=== PATIENT | female | born 1950 | race Caucasian/White ===

== ENCOUNTER → 2016-06-09 | Outpatient (CLI) | payer OTHER ==
[~2016-06-09] MED LIST: ATOR-24 PO; LEVO125T7 PO; LISI-725 PO; LRT5 PO; MULT-190 PO; NAPR-201 PO; UNABLE
[2016-06-09 12:40] LABS: ALT/SGPT 54 U/L (12-78); BLOOD UREA NITROGEN 20 mg/dl (7-18); BUN/CREATININE RATIO 18.5 (10-20); CALCIUM 9.8 mg/dl (8.5-10.1); CARBON DIOXIDE 22 mmol/L (21-32); CHLORIDE 106 mmol/L (98-107); CHOLESTEROL 162 mg/dl (0-200); GLUCOSE 207 mg/dl (70-99); POTASSIUM 4.5 mmol/L (3.5-5.1); SODIUM 141 mmol/L (136-145)
[2016-06-09 12:42] LABS: ESTIMATED AVERAGE GLUCOSE 189 mg/dl; HA1C FLAG Normal (Normal)
[2016-06-09 12:51] LABS: ALB/GLOB RATIO 1.4 (0.9-2); ALKALINE PHOSPHATASE 75 U/L (45-117); AST/SGOT 37 U/L (15-37); CHOLESTEROL/HDL RATIO 3.4; HDL CHOLESTEROL 48 mg/dl; LDL CHOLESTEROL CALCULATED 78 mg/dl; TRIGLYCERIDES 178 mg/dl (0-150); VERY LOW DENSITY LIPOPROT CALC 36 mg/dl
== END | disposition home or self-care (01) ==
LOC: C.LABBFT 11:10
PROVIDERS: ATTEND Nurse Practitioner
DX: E11.65 Type 2 diabetes mellitus with hyperglycemia (principal); E03.9 Hypothyroidism, unspecified

== ENCOUNTER → 2016-06-10 | Outpatient (CLI) | payer OTHER ==
--- NOTE | 2016-06-10 16:04 | MAMMOGRAPHY REPORT ---
BILATERAL DIGITAL SCREENING MAMMOGRAM WITH CAD: 06/10/2016 CLINICAL HISTORY: Routine screening. Patient has no complaints. TECHNIQUE: Bilateral CC and MLO views were obtained. Current study was also evaluated with a Compu ter Aided Detection (CAD) system. COMPARISON: Comparison is made to exams dated: 04/19/2014 mammogram, 04/20/2015 mammogram, 3 mammogram, 04/05/2012 mammogram, 04/03/2011 mammogram, and 04/02/2010 mammogram - [facility]. BREAST COMPOSITION: There are scattered areas of fibroglandular density in both breasts. FINDINGS: A 5 mm focal asymmetry in the approximate 3:00 right breast is unchanged in size dating ba ck to at least 07/30/2007, therefore likely benign. No suspicious mass, architectural distortion or cluster of microcalcifications is seen. IMPRESSION: ACR BI-RADS CATEGORY 1: NEGATIVE There is no mammographic evidence of malignancy. A 1 year screening mammogram is recommended. The p atient will receive written notification of the results. Approximately 10% of breast cancers are not detected with mammography. A negative mammographic repor t should not delay biopsy if a clinically suggestive mass is present. Henny Taveras M.D. ay/:06/10/2016 15:50:44 Relaster: Nasima CHAVEZ)(Sudha), [facility] letter sent: Normal 1/2 BI-RADS Code: ACR BI-RADS Category 1: Negative
== END | disposition home or self-care (01) ==
LOC: C.MAMM 13:55
PROVIDERS: ATTEND Allergy & Immunology Allergy
DX: Z12.31 Encounter for screening mammogram for malignant neoplasm of breast (principal)

== ENCOUNTER → 2016-10-10 | Outpatient (CLI) | payer OTHER ==
[2016-10-10 12:09] LABS: ESTIMATED AVERAGE GLUCOSE 214 mg/dl; HA1C FLAG Normal (Normal)
[2016-10-10 12:25] LABS: ALB/GLOB RATIO 1.4 (0.9-2); ALT/SGPT 49 U/L (12-78); AST/SGOT 39 U/L (15-37); BLOOD UREA NITROGEN 24 mg/dl (7-18); BUN/CREATININE RATIO 19.7 (10-20); CALCIUM 9.1 mg/dl (8.5-10.1); CARBON DIOXIDE 24 mmol/L (21-32); CHLORIDE 107 mmol/L (98-107); CHOLESTEROL 151 mg/dl (0-200); GLUCOSE 179 mg/dl (70-99); POTASSIUM 4.5 mmol/L (3.5-5.1); SODIUM 140 mmol/L (136-145)
[2016-10-10 12:30] LABS: ALKALINE PHOSPHATASE 68 U/L (45-117); CHOLESTEROL/HDL RATIO 3.4; HDL CHOLESTEROL 44 mg/dl; LDL CHOLESTEROL CALCULATED 51 mg/dl; TRIGLYCERIDES 279 mg/dl (0-150); VERY LOW DENSITY LIPOPROT CALC 56 mg/dl
[2016-10-10 18:01] LABS: RATIO 18.6 mcg/mg (0-30.0)
== END | disposition home or self-care (01) ==
LOC: C.LABBFT 10:40
PROVIDERS: ATTEND Nurse Practitioner
DX: E11.65 Type 2 diabetes mellitus with hyperglycemia (principal)

== ENCOUNTER → 2017-02-16 | Outpatient (CLI) | payer OTHER ==
[2017-02-16 18:01] LABS: ALT/SGPT 47 U/L (12-78); AST/SGOT 44 U/L (15-37); BLOOD UREA NITROGEN 21 mg/dl (7-18); BUN/CREATININE RATIO 17.8 (10-20); CALCIUM 9.4 mg/dl (8.5-10.1); CARBON DIOXIDE 23 mmol/L (21-32); CHLORIDE 107 mmol/L (98-107); CREATININE 1.18 mg/dl (0.60-1.20); GLUCOSE 138 mg/dl (70-99); POTASSIUM 4.1 mmol/L (3.5-5.1); SODIUM 140 mmol/L (136-145)
[2017-02-16 18:10] LABS: ALB/GLOB RATIO 1.2 (0.9-2); ALKALINE PHOSPHATASE 66 U/L (45-117); CHOLESTEROL 136 mg/dl (0-200); CHOLESTEROL/HDL RATIO 3.2; HDL CHOLESTEROL 42 mg/dl; LDL CHOLESTEROL CALCULATED 54 mg/dl; TRIGLYCERIDES 202 mg/dl (0-150); VERY LOW DENSITY LIPOPROT CALC 40 mg/dl
[2017-02-16 18:26] LABS: RATIO 22.2 mcg/mg (0-30.0)
[2017-02-17 07:07] LABS: ESTIMATED AVERAGE GLUCOSE 192 mg/dl; HA1C FLAG Normal (Normal)
== END | disposition home or self-care (01) ==
LOC: C.LABBFT 11:13
PROVIDERS: ATTEND Nurse Practitioner
DX: E11.65 Type 2 diabetes mellitus with hyperglycemia (principal); E03.9 Hypothyroidism, unspecified; I10 Essential (primary) hypertension; E55.9 Vitamin D deficiency, unspecified; E78.00 Pure hypercholesterolemia, unspecified

== ENCOUNTER → 2017-06-16 | Outpatient (CLI) | payer OTHER ==
--- NOTE | 2017-06-17 15:22 | MAMMOGRAPHY REPORT ---
BILATERAL DIGITAL SCREENING MAMMOGRAM TOMOSYNTHESIS WITH CAD: 06/16/2017 CLINICAL HISTORY: Routine screening. Patient has no complaints. TECHNIQUE: Breast tomosynthesis in addition to standard 2D mammography was performed. Current study was also evaluated with a Computer Aided Detection (CAD) system. COMPARISON: Comparison is made to exams dated: 06/10/2016 mammogram, 04/20/2015 mammogram, 04/19/2014 mammogram, 04/14/2013 mammogram, 04/06/2013 mammogram, and 04/05/2012 mammogram - [facility]. BREAST COMPOSITION: There are scattered areas of fibroglandular density in both breasts. FINDINGS: There is a stable subcentimeter focal asymmetry in the medial, approximately 3:00 right donna ast. No new suspicious mass, architectural distortion or cluster of microcalcifications is seen. IMPRESSION: ACR BI-RADS CATEGORY 1: NEGATIVE There is no mammographic evidence of malignancy. A 1 year screening mammogram is recommended. The pa tient will receive written notification of the results. Approximately 10% of breast cancers are not detected with mammography. A negative mammographic report should not delay biopsy if a clinically suggestive mass is present. Henny Taveras M.D. ay/:06/16/2017 15:54:03 Staff Forester: Noemi Rizvi, [facility] letter sent: Normal 1/2 BI-RADS Code: ACR BI-RADS Category 1: Negative
== END | disposition home or self-care (01) ==
LOC: C.MAMM 11:12
PROVIDERS: ATTEND Nurse Practitioner
DX: Z12.31 Encounter for screening mammogram for malignant neoplasm of breast (principal)

== ENCOUNTER → 2017-06-24 | Outpatient (CLI) | payer OTHER ==
[2017-06-24 13:03] LABS: ALBUMIN 4.1 gm/dl (3.4-5.0); BLOOD UREA NITROGEN 20 mg/dl (7-18); CALCIUM 10.1 mg/dl (8.5-10.1); CARBON DIOXIDE 27 mmol/L (21-32); CREATININE 1.23 mg/dl (0.60-1.20); GLUCOSE 224 mg/dl (70-99); POTASSIUM 4.4 mmol/L (3.5-5.1); SODIUM 136 mmol/L (136-145)
[2017-06-24 13:04] LABS: PHOSPHORUS 2.7 mg/dl (2.5-4.9)
== END | disposition home or self-care (01) ==
LOC: C.LABBFT 10:18
PROVIDERS: ATTEND Nurse Practitioner
DX: E11.65 Type 2 diabetes mellitus with hyperglycemia (principal); R92.8 Other abnormal and inconclusive findings on diagnostic imaging of breast

== ENCOUNTER → 2017-08-07 | Outpatient (CLI) | payer OTHER ==
[2017-08-07 17:47] LABS: BLOOD UREA NITROGEN 21 mg/dl (7-18); CALCIUM 9.8 mg/dl (8.5-10.1); CARBON DIOXIDE 25 mmol/L (21-32); CREATININE 1.14 mg/dl (0.60-1.20); POTASSIUM 4.1 mmol/L (3.5-5.1); SODIUM 132 mmol/L (136-145)
[2017-08-07 19:29] LABS: GLUCOSE 366 mg/dl (70-99)
--- NOTE | 2017-08-07 20:17 | Pathology Note ---
Pathology Note Date of Service Aug 07, 2017. Pathology Notes I was called by the laboratory at 1958 hours with a CV glucose of 366. The laboratory was unable to reach the patient's physician after calling three times. I called the patient and she stated she was feeling fine and had not taken her metformin yesterday.
== END | disposition home or self-care (01) ==
LOC: C.LABBFT 12:12
PROVIDERS: ATTEND Nurse Practitioner
DX: E11.65 Type 2 diabetes mellitus with hyperglycemia (principal)

== ENCOUNTER 2019-10-27 18:07 | Inpatient (IN) ==
[2019-10-27] MEDS ORDERED: SODIUM CHLORIDE 0.9% 500 ML IV SCH (18:30)
--- NOTE | 2019-10-27 18:31 | Emergency Department Note ---
Impression & Plan Sinus tachycardia, Hypomagnesemia, Abnormal ECG ED Provider Note NAME: JEREMIAH DEAN AGE: 69 SEX: F : 1950 ARRIVES VIA: Walk-In INFORMANT: Patient, ED PROVIDER(S): Brian Blandon DO CHIEF COMPLAINT: Palpitations HPI: The patient is a 69-year-old female who presented to the emergency department for an evaluation of abnormal EKG. The patient went to see her primary care physician today for a routine visit. She was sent to the emergency department for an abnormal EKG. The patient was found to have tachycardia and when she had an EKG done it was read as possible "silent heart attack". The patient was sent to the emergency department for further evaluation. She denies having any chest pain. She denies having any difficulty breathing. She does state that sometimes she gets exertional dyspnea. She does complain of lower extremity swelling which is not new for her. She denies having any nausea or vomiting or recent illnesses. She has no fever or cough. She used to be a smoker. She currently does take medications for thyroid. She also has a history of sciatica and has had injections with orthopedics in the past. She has had no changes to her medications. ROS: See above HPI for pertinent positives & negatives. A total of 10 systems reviewed and were otherwise negative. PAST MEDICAL HISTORY: See Below PAST SURGICAL HISTORY: See Below FAMILY HISTORY: See Below SOCIAL HISTORY: See Below HOME MEDICATIONS: See Below ALLERGIES: See Below VITALS: See Below PHYSICAL EXAMINATION: GENERAL: Patient is awake alert in no acute distress patient is resting comfortably and showing no signs of anxiety EYES: The conjunctivae are clear. The pupils are round and reactive. EARS, NOSE, MOUTH AND THROAT: The nose is without any evidence of any deformity. The patient was wearing a mask. NECK: The neck is nontender and supple. RESPIRATORY: Normal respiratory effort is noted there is no evidence of wheezing rhonchi or rales CARDIOVASCULAR: Tachycardic rate with regular rhythm was noted. There was no definite murmur. GASTROINTESTINAL: The abdomen is soft. Abdomen is nontender. MUSCULOSKELETAL/EXTREMITIES: There is no evidence of gross deformity full range of motion is noted in the hips and shoulders. SKIN: There is no obvious evidence of any rash. Pedal edema was noted bilaterally. NEUROLOGIC: Patient is awake alert and oriented x3. Strength was symmetric. MEDICAL DECISION MAKING: The patient is a 69-year-old female who presented to the emergency department for an abnormal EKG. The patient was seen in her primary care physician's office for routine visit and was found to be in sinus tachycardia. Her EKG was felt to be abnormal and change from previous. For this reason she was sent to the emergency department for further evaluation. The patient was treated with IV fluids and IV magnesium. She was reevaluated multiple times. I discussed the patient's laboratory and radiographic studies with her. Given her findings I also discussed her case with the on-call [facility] hospitalist. They have agreed to evaluate the patient in the emergency department for further management and disposition. Triage Nursing notes reviewed. Prior medical records reviewed Vital Signs: reviewed and remarkable for tachycardia and hypertension. Differential diagnosis: Cardiac ischemia, aortic dissection, pulmonary embolism, pneumothorax, pneumonia, pericarditis, myocarditis, esophageal rupture, GERD, cholecystitis, pancreatitis, musculoskeletal, as well as other pathologies. ER treatment provided: See below Diagnostics interpreted by me: ECG: EKG was obtained in the emergency department. My interpretation is sinus tachycardia at 129 bpm. There was no ectopy. There were no acute ST segment abnormalities noted. Low voltage was noted. This was compared to a tracing from October 112008. Increased rate otherwise no significant changes were noted. Cardiac Monitoring: An order was placed for continuous cardiac monitoring. The monitor shows a rate of with rhythm. Laboratory studies: As stated above and show below. Imaging studies: See below Past Med/Surg History Medical History Sciatica SOB (shortness of breath) on exertion OVERWEIGHT Surgical History H/O dilation and curettage History of arthroscopy LEFT History of tooth extraction WISDOM TEETH History of total hip arthroplasty LEFT, 10/2008 Hx of hysterectomy Hx of knee surgery Hx of laparoscopy Family History Mother Family history of diabetes mellitus Hypertension Kidney disease Father Family history of diabetes mellitus Diabetes Coronary heart disease Hypertension Arthritis Heart disease Family/Other Family hx of colon cancer Brother Alcohol abuse Other Colorectal cancer Denies family history of Ovarian cancer Prostate cancer Osteoporosis Myocardial infarction Breast cancer Social History Preferred Language: Finnish Communication Ability: Effective Hearing Ability: Normal Warp Spinner Required: No Beliefs That Will Affect Care: None marital status: Single Current Living Situation: Alone current occupational status: retired Feels Safe at Home: Yes Smoking Status: Former smoker Tobacco Type: cigarettes ; Age Started Using Tobacco: 19 ; Age Quit Using Tobacco: 53 ; packs per day: 2 ; Cigarettes Per Day: 40 ; Number of Years Since Quit: 16 ; Second Hand Exposure: No ; Hx Alcohol Use: No Hx Substance Use: Yes substance use type: does not use, painkillers and prescription drug Seatbelt Use: always Sunscreen Use: No Allergies Allergies Allergy/AdvReac Type Severity Reaction Status Date / Time No Known Allergies Allergy Mild 0 Verified 10/27/19 18:42 Home Meds Home Medications Medication Instructions Recorded Confirmed PreserVision AREDS 1 tab PO QPM 08/13/18 10/27/19 cholecalciferol (vitamin D3) 1,000 unit PO QAM 08/13/18 10/27/19 [Vitamin D3] cinnamon bark [Cinnamon] 500 mg PO QAM 08/13/18 10/27/19 omega 1-flg-lqr-fish oil [Fish Oil] 1 cap PO QAM 08/13/18 10/27/19 fexofenadine 60 mg tablet 60 mg PO QPM tab 03/29/19 10/27/19 Previous Rx's Medication Instructions Recorded meloxicam 15 mg tablet 15 mg PO QAM #30 tab 03/29/19 lisinopril 40 mg tablet 40 mg PO DAILY #30 tab 04/04/19 levothyroxine 175 mcg tablet 175 mcg PO DAILY #30 tab 04/25/19 cyclobenzaprine 5 mg tablet 5 mg PO TID PRN #60 tab 04/29/19 glimepiride 4 mg tablet 4 mg PO DAILY #90 tab 04/29/19 metoprolol succinate 100 mg 100 mg PO QAM #30 tab 05/30/19 tablet,extended release 24 hr amoxicillin 500 mg capsule 2,000 mg PO ONCE PRN #4 cap 08/05/19 atorvastatin 40 mg tablet 40 mg PO PM #90 tab 08/05/19 dulaglutide 1.5 mg/0.5 mL 1.5 mg SUBCUT WK #2 ml 08/05/19 subcutaneous pen injector metformin 500 mg tablet,extended 1,000 mg PO BID #360 tab 08/05/19 release 24 hr acetaminophen 300 mg-codeine 30 mg 1 - 2 tab PO .COMPLEX PRN #30 tab 09/12/19 tablet Results & Data (ED) Vital Signs Vital Signs - 24 hr 10/27/19 18:08 10/27/19 18:33 10/27/19 18:48 Temperature 37.0 C Temperature Source Oral Pulse Rate 141 H 125 H 121 H Pulse Rate [Apical] Pulse Rate [Right Finger] 128 H Pulse Rate from SpO2 Sensor 124 H 122 H Respiratory Rate 24 15 25 H Respiratory Effort / Characteristics Non-Labored Spontaneous Respiratory Depth Normal Respiratory Pattern Regular Blood Pressure 186/97 H 169/96 H Blood Pressure [Right Arm] 169/96 H Blood Pressure Mean 126 118 Blood Pressure Mean [Right Arm] 120 Pulse Oximetry 97 97 98 Oxygen Delivery Method Room Air Room Air Sepsis Recent Fever Within 48 Hours No Sepsis Action Taken by Nursing No Action Required 10/27/19 19:00 10/27/19 19:01 10/27/19 19:30 Temperature Temperature Source Pulse Rate 126 H 130 H 131 H Pulse Rate [Apical] Pulse Rate [Right Finger] Pulse Rate from SpO2 Sensor 126 H 130 H 132 H Respiratory Rate 20 22 20 Respiratory Effort / Characteristics Respiratory Depth Respiratory Pattern Blood Pressure 186/98 H 173/86 H Blood Pressure [Right Arm] Blood Pressure Mean 127 103 Blood Pressure Mean [Right Arm] Pulse Oximetry 96 96 97 Oxygen Delivery Method Sepsis Recent Fever Within 48 Hours Sepsis Action Taken by Nursing 10/27/19 20:00 10/27/19 20:18 10/27/19 21:05 Temperature Temperature Source Pulse Rate 135 H 130 H Pulse Rate [Apical] Pulse Rate [Right Finger] 134 H Pulse Rate from SpO2 Sensor 135 H Respiratory Rate 21 20 29 H Respiratory Effort / Characteristics Non-Labored Spontaneous Respiratory Depth Normal Respiratory Pattern Regular Blood Pressure 160/92 H Blood Pressure [Right Arm] 160/92 H Blood Pressure Mean 132 Blood Pressure Mean [Right Arm] 114 Pulse Oximetry 96 97 Oxygen Delivery Method Room Air Sepsis Recent Fever Within 48 Hours Sepsis Action Taken by Nursing 10/27/19 21:06 10/27/19 21:30 10/27/19 21:31 Temperature Temperature Source Pulse Rate 128 H 129 H 129 H Pulse Rate [Apical] Pulse Rate [Right Finger] Pulse Rate from SpO2 Sensor 127 H 130 H 128 H Respiratory Rate 21 21 20 Respiratory Effort / Characteristics Respiratory Depth Respiratory Pattern Blood Pressure 154/101 H 166/100 H Blood Pressure [Right Arm] Blood Pressure Mean 113 115 Blood Pressure Mean [Right Arm] Pulse Oximetry 98 97 97 Oxygen Delivery Method Sepsis Recent Fever Within 48 Hours Sepsis Action Taken by Nursing 10/27/19 21:35 10/27/19 21:36 10/27/19 22:00 Temperature Temperature Source Pulse Rate 127 H 130 H 112 H Pulse Rate [Apical] Pulse Rate [Right Finger] Pulse Rate from SpO2 Sensor 127 H 113 H Respiratory Rate 18 20 Respiratory Effort / Characteristics Respiratory Depth Respiratory Pattern Blood Pressure 163/102 H 163/102 H 165/105 H Blood Pressure [Right Arm] Blood Pressure Mean 124 119 Blood Pressure Mean [Right Arm] Pulse Oximetry 97 96 Oxygen Delivery Method Room Air Room Air Sepsis Recent Fever Within 48 Hours Sepsis Action Taken by Nursing 10/27/19 22:01 10/27/19 22:30 10/27/19 22:31 Temperature Temperature Source Pulse Rate 114 H 111 H 115 H Pulse Rate [Apical] Pulse Rate [Right Finger] Pulse Rate from SpO2 Sensor 115 H 111 H 115 H Respiratory Rate 20 20 27 H Respiratory Effort / Characteristics Respiratory Depth Respiratory Pattern Blood Pressure 168/102 H Blood Pressure [Right Arm] Blood Pressure Mean 125 Blood Pressure Mean [Right Arm] Pulse Oximetry 96 97 97 Oxygen Delivery Method Room Air Room Air Room Air Sepsis Recent Fever Within 48 Hours Sepsis Action Taken by Nursing 10/27/19 23:23 Temperature Temperature Source Pulse Rate Pulse Rate [Apical] 111 H Pulse Rate [Right Finger] Pulse Rate from SpO2 Sensor Respiratory Rate 18 Respiratory Effort / Characteristics Respiratory Depth Respiratory Pattern Blood Pressure Blood Pressure [Right Arm] 164/102 H Blood Pressure Mean Blood Pressure Mean [Right Arm] 122 Pulse Oximetry 98 Oxygen Delivery Method Room Air Sepsis Recent Fever Within 48 Hours Sepsis Action Taken by Prison Medications Current Medication List: was personally reviewed by me Laboratory Data Attestation: I reviewed the patient's lab results. Result diagrams: 10/27/19 18:58 10/27/19 18:58 Lab Results 10/27/19 10/27/19 10/27/19 Range/Units 18:58 18:58 18:58 WBC 4.57 L (4.8-10.8) K/uL RBC 4.56 (4.2-5.4) M/uL Hgb 13.8 (12.0-16.0) g/dL Hct 39.6 (37-47) % MCV 86.8 (80-100) fL MCH 30.3 (25-34) pg MCHC 34.8 (32-36) g/dL RDW Std Deviation 41.5 (36.4-46.3) fL RDW Coeff of Kamla 13.2 (11.5-14.5) % Plt Count 120 L (130-400) K/uL MPV 11.2 H (7.4-10.4) fL Immature Gran % (Auto) 0.4 % Neut % (Auto) 50.2 % Lymph % (Auto) 40.0 % Woodward % (Auto) 7.2 % Eos % (Auto) 2.0 % Baso % (Auto) 0.2 % Neut # (Auto) 2.29 (1.4-6.5) K/uL Lymph # (Auto) 1.83 (1.2-3.4) K/uL Woodward # (Auto) 0.33 (0.11-0.59) K/uL Eos # (Auto) 0.09 (0-0.5) K/uL Baso # (Auto) 0.01 (0-0.2) K/uL Immature Gran # (Auto) 0.02 (0.00-0.02) K/uL PT 11.5 (9.0-12.0) Seconds INR 1.1 (0.9-1.1) APTT 24.3 (21.0-31.0) Seconds PTT Ratio 0.9 D-Dimer 770 H* (0-500) ug/L FEU Sodium 139 (136-145) mmol/L Potassium 3.6 (3.5-5.1) mmol/L Chloride 106 (98-107) mmol/L Carbon Dioxide 21 (21-32) mmol/L Anion Gap 12.0 H (3-11) BUN 11 (7-18) mg/dl Creatinine 1.03 (0.6-1.2) mg/dl Est Cr Clr Drug Dosing 68.6 ml/min Est GFR ( Amer) 64.7 Est GFR (Non-Af Amer) 55.8 BUN/Creatinine Ratio 10.5 (10-20) Glucose 246 H (70-99) mg/dl Calcium 9.1 (8.5-10.1) mg/dl Magnesium 1.0 L (1.8-2.4) mg/dl Total Bilirubin 1.1 H (0.2-1) mg/dl AST 31 (15-37) U/L ALT 41 (12-78) U/L Alkaline Phosphatase 86 (45-117) U/L Total Creatine Kinase 64 (26-192) U/L CK-MB (CK-2) 2.2 (0.5-3.6) ng/ml CK/CKMB % Calc 3.4 H (0-3.0) Troponin I < 0.015 (0-0.045) ng/ml Total Protein 7.4 (6.4-8.2) gm/dl Albumin 4.0 (3.4-5.0) gm/dl Globulin 3.4 (2.5-4.0) gm/dl Albumin/Globulin Ratio 1.2 (0.9-2) Lipase 206 (73-393) U/L TSH 1.610 (0.300-4.500) uIu/ml Administered Medications Ioversol (Optiray 320 125ml) 119 ml IV ONCE PRN PRN Reason: Interaction Checking Stop: 10/31/19 20:35 Last Admin: 10/27/19 20:36 Dose: 119 ml Documented by: [id number] Discontinued Medications Sodium Chloride (Nss) 500 mls @ 999 mls/hr IV .Q31M [facility] Stop: 10/27/19 19:00 Last Infusion: 10/27/19 19:52 Dose: 0 mls/hr Documented by: [id number] Admin: 10/27/19 19:17 Dose: 999 mls/hr Documented by: [id number] Magnesium Sulfate/Dextrose (Magnesium Sulfate / D5w) 1 gm in 100 mls @ 200 mls/hr IV Q30M [facility] Stop: 10/27/19 22:04 Last Infusion: 10/27/19 22:48 Dose: 0 mls/hr Documented by: [id number] Admin: 10/27/19 22:13 Dose: 200 mls/hr Documented by: [id number] Infusion: 10/27/19 22:08 Dose: 200 mls/hr Documented by: [id number] Admin: 10/27/19 21:38 Dose: 200 mls/hr Documented by: [id number] Metoprolol Tartrate (Lopressor) 5 mg IV NOW STA Stop: 10/27/19 21:08 Last Admin: 10/27/19 21:36 Dose: 5 mg Documented by: [id number] Imaging Data Radiologist's Impression: XR chest 1V portable CLINICAL HISTORY: Chest Pain pain COMPARISON STUDY: 10/11/2008 FINDINGS: The bones soft tissues and hemidiaphragms are normal. The cardiomediastinal silhouette is normal. The lungs are clear. The pulmonary vasculature is normal. Old fracture midshaft left clavicle IMPRESSION: No acute process. ACT 112: Negative or not required by law. The above report was generated using voice recognition software. It may contain grammatical, syntax or spelling errors. Electronically signed by: Frederick Marie M.D. 10/27/2019 6:43 PM Dictated: 10/27/191841 Transcribed: 10/27/191841 CT angio chest PE protocol CT DOSE: 803.40 mGy.cm HISTORY: Pain. Dyspnea. PE TECHNIQUE: Multiaxial CT images of the chest were performed following the intravenous administration of contrast to evaluate the pulmonary arteries. Maximal intensity projection images were also obtained. A dose lowering technique was utilized adhering to the principles of ALARA. COMPARISON STUDY: None. FINDINGS: There is a normal caliber thoracic aorta with no evidence for dissection. There is no evidence for pulmonary embolus. No pleural effusions. No pneumothorax. The liver and spleen are unremarkable. No mediastinal or hilar lymphadenopathy. The central airways are patent. The lungs are clear. IMPRESSION: No evidence for pulmonary embolus. The lungs are clear. ACT 112: Negative or not required by law. The above report was generated using voice recognition software. It may contain grammatical, syntax or spelling errors. Electronically signed by: Frederick Marie M.D. 10/27/2019 8:55 PM Dictated: 10/27/192052 Transcribed: 10/27/192052 Blood Pressure Blood Pressure Findings: Elevated blood pressure Blood Pressure Disposition: further management by hospitalist Discharge Plan Visit Data Chief Complaint: Chest Pain Stated Complaint: DR RICHARDSON - CHEST PAIN, SOB ED Provider: Brian Blandon Discharge Problem: Sinus tachycardia, Hypomagnesemia, Abnormal ECG Patient Disposition: Being Evaluated by Hospitalist Condition: Good Forms Stand Alone Forms: My [facility] Prescriptions Prescriptions: No Action lisinopril 40 mg tablet 40 mg PO DAILY Qty: 30 RF: 5 levothyroxine 175 mcg tablet 175 mcg PO DAILY Qty: 30 RF: 5 cyclobenzaprine 5 mg tablet 5 mg PO TID PRN (Reason: sciatica) Qty: 60 RF: 2 glimepiride 4 mg tablet 4 mg PO DAILY Qty: 90 RF: 3 metoprolol succinate 100 mg tablet extended release 24 hr 100 mg PO QAM Qty: 30 RF: 3 atorvastatin 40 mg tablet 40 mg PO PM Qty: 90 RF: 2 Trulicity 1.5 mg/0.5 mL pen injector 1.5 mg SUBCUT WK Qty: 2 RF: 2 metformin 500 mg tablet extended release 24 hr 1,000 mg PO BID Qty: 360 RF: 2 amoxicillin 500 mg capsule 2,000 mg PO ONCE PRN (Reason: history of hip replacement) Qty: 4 RF: 1 acetaminophen-codeine 300-30 mg tablet 1 - 2 tab PO .COMPLEX PRN (Reason: pain) Qty: 30 RF: 0 meloxicam 15 mg tablet 15 mg PO QAM Qty: 30 RF: 5 fexofenadine [Hayley Allergy] 60 mg tablet 60 mg PO QPM RF: 0 PreserVision AREDS [id number] Tablet 1 tab PO QPM RF: 0 cholecalciferol (vitamin D3) [Vitamin D3] 1,000 unit Capsule 1,000 unit PO QAM RF: 0 cinnamon bark [Cinnamon] 500 mg Capsule 500 mg PO QAM RF: 0 omega 2-yab-amx-fish oil [Fish Oil] 1,000 mg (120 mg-180 mg) Capsule 1 cap PO QAM RF: 0 Referrals Referrals: Gemma Tompkins CRNP [Primary Care Provider] -
--- NOTE | 2019-10-27 18:44 | XRay Report ---
XR chest 1V portable CLINICAL HISTORY: Chest Pain pain COMPARISON STUDY: 10/11/2008 FINDINGS: The bones soft tissues and hemidiaphragms are normal. The cardiomediastinal silhouette is n ormal. The lungs are clear. The pulmonary vasculature is normal. Old fracture midshaft left clavicle IMPRESSION: No acute process. ACT 112: Negative or not required by law. The above report was generated using voice recognition software. It may contain grammatical, syntax or spelling errors. Electronically signed by: Frederick Marie M.D. 10/27/2019 6:43 PM
[2019-10-27 19:15] LABS: Basophils # (auto) 0.01 K/uL (0-0.2); Basophils % (auto) 0.2 %; Eosinophils # (auto) 0.09 K/uL (0-0.5); Hematocrit (blood only) 39.6 % (37-47); Hemoglobin 13.8 g/dL (12.0-16.0); Immature Granulocytes # (auto) 0.02 K/uL (0.00-0.02); Immature Granulocytes % (auto) 0.4 %; Lymphocytes # (auto) 1.83 K/uL (1.2-3.4); Mean Corpuscular Hemoglobin 30.3 pg (25-34); Mean Corpuscular Hgb Conc 34.8 g/dL (32-36); Mean Corpuscular Volume 86.8 fL (80-100); Mean Platelet Volume 11.2 fL (7.4-10.4); Monocytes # (auto) 0.33 K/uL (0.11-0.59); Monocytes % (auto) 7.2 %; Neutrophils # (auto) 2.29 K/uL (1.4-6.5); Neutrophils % (auto) 50.2 %; Platelet Count 120 K/uL (130-400); RDW Coefficient of Variation 13.2 % (11.5-14.5); RDW Standard Deviation 41.5 fL (36.4-46.3); Red Blood Count 4.56 M/uL (4.2-5.4); White Blood Count 4.57 K/uL (4.8-10.8)
[2019-10-27 19:30] LABS: INR 1.1 (0.9-1.1); Partial Thromboplastin Ratio 0.9; Partial Thromboplastin Time 24.3 Seconds (21.0-31.0); Prothrombin Time 11.5 Seconds (9.0-12.0)
[2019-10-27 19:36] LABS: Alanine Aminotransferase 41 U/L (12-78); Aspartate Aminotransferase 31 U/L (15-37); BUN Creatinine Ratio 10.5 (10-20); Blood Urea Nitrogen 11 mg/dl (7-18); Calcium 9.1 mg/dl (8.5-10.1); Carbon Dioxide 21 mmol/L (21-32); Chloride 106 mmol/L (98-107); Creatinine Clr Calc Pharmacy 68.6 ml/min; Est GFR (African American) 64.7; Est GFR (Non-African American) 55.8; Glucose 246 mg/dl (70-99); Lipase 206 U/L (73-393); Potassium 3.6 mmol/L (3.5-5.1); Sodium 139 mmol/L (136-145)
[2019-10-27 19:45] LABS: D Dimer 770 ug/L FEU (0-500)
[2019-10-27 19:47] LABS: Albumin Globulin Ratio 1.2 (0.9-2); Alkaline Phosphatase 86 U/L (45-117); Bilirubin,Total 1.1 mg/dl (0.2-1); Creatine Kinase 64 U/L (26-192); Creatine Kinase MB 2.2 ng/ml (0.5-3.6); Globulin 3.4 gm/dl (2.5-4.0); Total Protein 7.4 gm/dl (6.4-8.2); Troponin I < 0.015 ng/ml (0-0.045)
[2019-10-27] MEDS ORDERED: OPTIRAY 320 125ml IV PRN (20:36)
--- NOTE | 2019-10-27 20:56 | CT Scan Report ---
CT angio chest PE protocol CT DOSE: 803.40 mGy.cm HISTORY: Pain. Dyspnea. PE TECHNIQUE: Multiaxial CT images of the chest were performed following the intravenous administration of contrast to evaluate the pulmonary arteries. Maximal intensity projection images were also obtaine d. A dose lowering technique was utilized adhering to the principles of ALARA. COMPARISON STUDY: None. FINDINGS: There is a normal caliber thoracic aorta with no evidence for dissection. There is no evide nce for pulmonary embolus. No pleural effusions. No pneumothorax. The liver and spleen are unremarkab le. No mediastinal or hilar lymphadenopathy. The central airways are patent. The lungs are clear. IMPRESSION: No evidence for pulmonary embolus. The lungs are clear. ACT 112: Negative or not required by law. The above report was generated using voice recognition software. It may contain grammatical, syntax or spelling errors. Electronically signed by: Frederick Marie M.D. 10/27/2019 8:55 PM
[2019-10-27] MEDS ORDERED: METOPROLOL TARTRATE 1 MG/ML VIAL IV STA (21:07)
[2019-10-27] MEDS: MAGNESIUM SULFATE / D5W 1 GM/100 ML BAG IV SCH ×2 (21:38→22:13)
--- NOTE | 2019-10-27 22:02 | History & Physical Report ---
Date of Service October 27, 2019 Assessment & Plan (1) Sinus tachycardia: Pt is a 69yo female with a PMHx significant for HTN, HLD, DMII, hypothyroidism, renal insufficiency, lumbar radiculopathy who presented to her PCP for a regular visit where she was noted to have sinus tachycardia on EKG. Sinus tachycardia -Pt states she has been completely asymptomatic; had a regularly scheduled check-up with her PCP. -PCP noted tachycardia during vitals and got an EKG which showed tachycardia -EKG showed sinus tachycardia, tele HR from one-teens to 140s, trops NEGATIVE -K+ 3.6, Mag 1, phos pending with AM labs, TSH WNL, D-dimer elevated to 770 -CTA chest with PE protocol showed no evidence of PE -Chest XR unremarkable -optimize electrolytes to K+>4 and Mag>2 -Echo pending -consult placed to cardiology for AM -admit to telemetry for continuous cardiac monitoring Hypomagnesemia -1.0 on admission -replete as needed with goal >2.0 Thrombocytopenia -platelets decreased to 120 -cause unclear (no recent heparin therapy, ?DIC with elevated d-dimer+sinus tachycardia, ?ITP) -pending fibrinogen, fibrin degradation products, aptt, pt/inr with AM labs -peripheral smear ordered and pending DMII -Hgba1c of 9.8 -hold home dulaglutide 1.5mg SQ weekly, glimepiride 4mg and metformin 500mg BID -ISS while hospitalized CKD -pt with known history of renal insufficiency -Cr within normal limits currently; GFR 55.8 -limit nephrotoxic drugs such as home meloxicam (holding) but continue home lisinopril (see below) -consider fluids given recent use of contrast for CT scan, AM labs with repeat Cr level pending. HLD -continue home atorvastatin 40mg HTN -continue home lisinopril 40mg and metoprolol succinate 100mg daily Hypothyroidism -continue home levothyroxine 175mcg daily Vit D deficiency -continue home Vit D 1000U qAM Lumbar radiculopathy -continue home acetaminophen 300mg-codeine 30mg PRN -continue home cyclobenzaprine 5mg TID PRN -hold home meloxicam due to potential nephrotoxic effect (see below) Allergies -continue home fexofenadine 60mg qpm Diet: DMII, heart healthy diet DVT prophylaxis: SCDs, pt thrombocytopenic CODE STATUS: conditional: CPR, defibrillation ok, no intubation or ventilator support Dispo: Med/Surg with tele (no beds in PCU) History of Present Illness Primary Care Provider: ALIA Verma Pt is a 69yo female with a PMHx significant for HTN, HLD, DMII, hypothyroidism, renal insufficiency, lumbar radiculopathy who presented to her PCP for a regular visit where she was noted to have sinus tachycardia on EKG. Pt states that she has been completely asymptomatic, did not think anything out of the ordinary was wrong with her. Presented to her PCP today for a regular followup appointment of her chronic issues where she was noted to be tachycardic to the 130s. An EKG obtained showed sinus tachycardia and she was advised to go to the ED for further evaluation. Denies any recent significant lifestyle changes. Denies any headache, changes to vision, cough, runny nose, sore throat, dizziness, weakness, chest pain, SOB, palpitations, abdominal pain, diarrhea or constipation, swelling in hands or feet or numbness or tingling anywhere. Quit smoking in 2003 after smoking for ~30 years. About 2 alcohol drinks a year. Denies recreational drug use. Lives alone at home. ED course: 500 fluid bolus, 1 dose of Lopressor 5mg, 1 bag of magnesium sulfate in D5W Allergies Allergy/AdvReac Type Severity Reaction Status Date / Time No Known Allergies Allergy Mild 0 Verified 10/27/19 18:42 Home Medications Home Medications Medication Instructions Recorded Confirmed Type PreserVision AREDS 1 tab PO QPM 08/13/18 10/27/19 History cholecalciferol (vitamin D3) 1,000 unit PO QAM 08/13/18 10/27/19 History [Vitamin D3] cinnamon bark [Cinnamon] 500 mg PO QAM 08/13/18 10/27/19 History omega 7-psj-eck-fish oil [Fish Oil] 1 cap PO QAM 08/13/18 10/27/19 History fexofenadine 60 mg tablet 60 mg PO QPM tab 03/29/19 10/27/19 History meloxicam 15 mg tablet 15 mg PO QAM #30 tab 03/29/19 10/27/19 Rx lisinopril 40 mg tablet 40 mg PO DAILY #30 tab 04/04/19 10/27/19 Rx levothyroxine 175 mcg tablet 175 mcg PO DAILY #30 tab 04/25/19 10/27/19 Rx cyclobenzaprine 5 mg tablet 5 mg PO TID PRN #60 tab 04/29/19 10/27/19 Rx glimepiride 4 mg tablet 4 mg PO DAILY #90 tab 04/29/19 10/27/19 Rx amoxicillin 500 mg capsule 2,000 mg PO ONCE PRN #4 cap 08/05/19 10/27/19 Rx atorvastatin 40 mg tablet 40 mg PO PM #90 tab 08/05/19 10/27/19 Rx dulaglutide 1.5 mg/0.5 mL 1.5 mg SUBCUT WK #2 ml 08/05/19 10/27/19 Rx subcutaneous pen injector metformin 500 mg tablet,extended 1,000 mg PO BID #360 tab 08/05/19 10/27/19 Rx release 24 hr acetaminophen 300 mg-codeine 30 mg 1 - 2 tab PO .COMPLEX PRN #30 tab 09/12/19 10/27/19 Rx tablet magnesium oxide 400 mg PO DAILY #30 cap 10/28/19 Rx metoprolol succinate [Toprol XL] 200 mg PO DAILY #30 tab 10/28/19 Rx Past Med/Surg History Medical History Sciatica SOB (shortness of breath) on exertion OVERWEIGHT Surgical History H/O dilation and curettage History of arthroscopy LEFT History of tooth extraction WISDOM TEETH History of total hip arthroplasty LEFT, 10/2008 Hx of hysterectomy Hx of knee surgery Hx of laparoscopy Family History Mother Family history of diabetes mellitus Hypertension Kidney disease Father Family history of diabetes mellitus Diabetes Coronary heart disease Hypertension Arthritis Heart disease Family/Other Family hx of colon cancer Brother Alcohol abuse Other Colorectal cancer Denies family history of Ovarian cancer Prostate cancer Osteoporosis Myocardial infarction Breast cancer Social History Preferred Language: Filipino Communication Ability: Effective Hearing Ability: Normal Back Office Medical Assistant Required: No Beliefs That Will Affect Care: None marital status: Single Current Living Situation: Alone current occupational status: retired Feels Safe at Home: Yes Smoking Status: Former smoker Tobacco Type: cigarettes ; Age Started Using Tobacco: 19 ; Age Quit Using Tobacco: 53 ; packs per day: 2 ; Cigarettes Per Day: 40 ; Number of Years Since Quit: 16 ; Second Hand Exposure: No ; Hx Alcohol Use: Yes Hx Substance Use: No Seatbelt Use: always Sunscreen Use: No Review of Systems Constitutional: no fever, no chills, no sweats and no fatigue Eyes: no worsening vision Ear, Nose, Mouth, Throat: no nasal congestion and no sore throat Respiratory: no cough and no dyspnea Cardiovascular: + edema; no chest pain, no dyspnea, no palpitations and no lightheadedness Gastrointestinal: no nausea, no vomiting, no constipation and no diarrhea/loose stools Genitourinary: no dysuria Musculoskeletal: no body aches Integumentary: no rash Neurologic: no dizziness, no headache(s) and no confusion Psychiatric: no confusion Physical Exam Physical Exam: General: Alert, oriented. No acute distress, laying down on bed with mask on face Skin: No noted rashes or bruises Psych: Appropriate mood and affect Neuro: No gross deficits HEENT: NC/AT Chest: Nontender to palpation. CV: RRR, Tachycardic Resp: Breath sounds clear bilaterally, no increased effort of breathing. No crackles/rhonchi/rales. Abdomen: Soft, nontender, nondistended. Extremities: Compression stockings on lower extremities bilaterally. Results & Data Results & Data ([facility]) Vital Signs (Past 12 Hours) Vital Signs Temp Pulse Pulse Resp BP BP Pulse Ox 10/27/19 21:36 130 H 163/102 H 10/27/19 21:31 129 H 20 97 10/27/19 21:30 129 H 21 166/100 H 97 10/27/19 21:06 128 H 21 154/101 H 98 10/27/19 21:05 130 H 29 H 10/27/19 20:18 134 H 20 160/92 H 97 10/27/19 20:00 135 H 21 160/92 H 96 10/27/19 19:30 131 H 20 173/86 H 97 10/27/19 19:01 130 H 22 96 10/27/19 19:00 126 H 20 186/98 H 96 10/27/19 18:48 121 H 128 H 25 H 169/96 H 169/96 H 98 10/27/19 18:33 125 H 15 97 10/27/19 18:08 37.0 C 141 H 24 186/97 H 97 Supervising Physician Co-Signing Physician Notes Attending addendum: I have physically seen this patient, have supervised the medical residents activities, and agree with the H&P unless as otherwise noted. Assessment and Plan: Sinus tachycardia/hypomagnesemia/hypertension- The patient will be admitted to telemetry for serial cardiac enzymes, serial EKG's, cardiac rhythm monitoring and a 2-D echocardiogram with Dopplers. Magnesium 1.0, to be repleted with 4 g magnesium sulfate IV, with repeat in a.m. Potassium 3.6, give 40 mEq p.o. now Continue lisinopril 40 mg daily and metoprolol succinate 100 mg daily. CTA chest negative for PE Consult cardiology Thrombocytopenia- Platelets 120 upon admission Order peripheral smear. Hold meloxicam. Diabetes mellitus- Hold dulaglutide, glimepiride and metformin. Placed on Accu-Cheks before meals and at bedtime with NovoLog coverage per scale Remainder of orders and notations as noted. Resident Activity Tracking Resident Involvement: Resident Care Provided Care Provided: Adult Hospital Medicine
[2019-10-28] MEDS ORDERED: DEXTROSE 50% 50 ML SYRINGE IV PRN (01:52)
[2019-10-28] MEDS ORDERED: GLUCAGON FOR INJ 1 MG VIAL SQ PRN (01:52)
[2019-10-28] MEDS ORDERED: CARBOHYDRATES FOR HYPOGLYCEMIA PO PRN (01:52)
[2019-10-28] MEDS ORDERED: CYCLOBENZAPRINE HCL 5 MG TAB PO PRN (01:52)
[2019-10-28] MEDS ORDERED: GLUCOSE 40% GEL 15 GM TUBE PO PRN (01:52)
[2019-10-28] MEDS ORDERED: ACETAMINOPHEN W/CODEINE #3 1 TAB PO PRN (01:52)
[2019-10-28] MEDS ORDERED: GLUCOSE 10 TABS/TUBE PO PRN (01:52)
[2019-10-28] MEDS ORDERED: POTASSIUM CHLORIDE 20 MEQ TABCR PO STA (02:44)
[2019-10-28] MEDS: MAGNESIUM SULFATE / D5W 1 GM/100 ML BAG IV SCH ×4 (03:17→09:29)
[2019-10-28 06:10] LABS: Basophils # (auto) 0.01 K/uL (0-0.2); Basophils % (auto) 0.2 %; Eosinophils # (auto) 0.08 K/uL (0-0.5); Eosinophils % (auto) 1.6 %; Hematocrit (blood only) 38.2 % (37-47); Hemoglobin 13.2 g/dL (12.0-16.0); Immature Granulocytes # (auto) 0.03 K/uL (0.00-0.02); Immature Granulocytes % (auto) 0.6 %; Lymphocytes # (auto) 1.72 K/uL (1.2-3.4); Mean Corpuscular Hemoglobin 30.5 pg (25-34); Mean Corpuscular Hgb Conc 34.6 g/dL (32-36); Mean Corpuscular Volume 88.2 fL (80-100); Mean Platelet Volume 10.6 fL (7.4-10.4); Monocytes # (auto) 0.43 K/uL (0.11-0.59); Monocytes % (auto) 8.5 %; Neutrophils # (auto) 2.79 K/uL (1.4-6.5); Neutrophils % (auto) 55.1 %; Platelet Count 107 K/uL (130-400); RDW Coefficient of Variation 13.3 % (11.5-14.5); RDW Standard Deviation 42.9 fL (36.4-46.3); Red Blood Count 4.33 M/uL (4.2-5.4); White Blood Count 5.06 K/uL (4.8-10.8)
[2019-10-28 06:28] LABS: Albumin Level 3.7 gm/dl (3.4-5.0); Calcium 8.5 mg/dl (8.5-10.1); Creatinine Clr Calc Pharmacy 89.4 ml/min; Est GFR (African American) 89.1; Est GFR (Non-African American) 76.9; Magnesium 1.9 mg/dl (1.8-2.4); Potassium 3.5 mmol/L (3.5-5.1)
[2019-10-28] MEDS ORDERED: LEVOTHYROXINE SODIUM 175 MCG TABLET PO SCH (06:30)
[2019-10-28 06:31] LABS: Albumin Globulin Ratio 1.3 (0.9-2); Bilirubin,Total 1.4 mg/dl (0.2-1); Phosphorus 2.9 mg/dl (2.5-4.9); Total Protein 6.7 gm/dl (6.4-8.2)
[2019-10-28 07:20] LABS: Fibrinogen 276 mg/dl (184-400); INR 1.1 (0.9-1.1); Partial Thromboplastin Ratio 0.9; Partial Thromboplastin Time 25.1 Seconds (21.0-31.0); Prothrombin Time 11.4 Seconds (9.0-12.0)
[2019-10-28] MEDS: INSULIN ASPART 100 UNITS/ML 3 ML PEN SC SCH ×2 (08:40→12:29)
[2019-10-28] MEDS ORDERED: lisinopriL 40 MG TAB PO SCH (09:00)
[2019-10-28] MEDS ORDERED: HEPARIN SOD 5,000 UNIT/0.5 ML VIAL SQ SCH (09:00)
[2019-10-28] MEDS ORDERED: CHOLECALCIFEROL 1,000 UNITS 25 MCG TAB PO SCH (09:00)
[2019-10-28] MEDS ORDERED: METOPROLOL SUCC 50MG EXT REL TAB PO SCH (09:00)
--- NOTE | 2019-10-28 10:46 | Cardiology Consultation ---
Date of Consultation October 28, 2019 Assessment & Plan (1) Sinus tachycardia: A physiologic explanation for her sinus tachycardia has not been identified thus far. It could perhaps just be that she has an inappropriate sinus tachycardia. When reviewing records, she does have a history of an el evated heart rate at times. She has chronically been taking metoprolol succinate 100 mg daily, and the dose can be increased to 200 mg daily to better control her heart rate as well as blood pressure. She remains completely asymptomatic in this regard. Echocardiogram is pending. (2) Hypertension: BP has been elevated. Would recommend titrating her beta sonja therapy, as noted above. (3) Hyperlipidemia: Continue statin therapy. This is managed by her PCP as an outpatient. (4) Hypomagnesemia: Supplementation as per primary service. Patient discussed with Dr. Hutchinson. Supervising Physician Co-Signing Physician Notes Patient seen and examined. Agree with Henny Santillan's assessment and plan. 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 Could increase metoprolol succinate. No further cardiac evaluation necessary unless echocardiogram abnormal. History of Present Illness Reason for Consultation: Sinus tachycardia Requesting Physician: Dr. Ling History of Present Illness Ms. Hernández is a 69-year-old female with a past medical history significant for type 2 diabetes, hypertension, dyslipidemia, hypothyroidism, chronic kidney disease, lumbar radiculopathy, and vitamin D deficiency who was admitted yes terday in the setting of sinus tachycardia. Patient was seen by her PCP yesterday for routine follow-up and was noted to be tachycardic with rates in the 130s on exam. An EKG was performed which repo rtedly showed sinus tachycardia with a rate of 140 bpm. She was completely asymptomatic at that time, but given the elevated heart rate, it was recommended she go to the ED for further evaluation. EKG in the ED showed sinus tachycardia at 129 bpm. She was found to be thrombocytopenic and hypomagnesemic. D-dimer was elevated at 770, but chest CTA showed no evidence of PE. CXR was unremarkable. Troponin was negative and TSH was within normal limits. She reports today that she continues to feel well and offers no specific complaints. She requires a walker when ambulating due to chronic low back pain and leg weakness. She is still able to do her house work and grocery shopping. She denies chest pain. She notes shortness of breath with more strenuous activities such as ambulating up an incline, but this appears to be chronic and stable. She denies orthopnea or PND. She notes some lower extremity edema, which is controlled with the use of support stockings. She notes an occasional "fluttering" in her chest, which resolves with taking a couple of deep breaths. The fluttering occurs very infrequently, about once every 4-5 months, and is rather brief in duration. She denies syncope or presyncope. She denies abnormal bleeding such as melena, hematochezia, or hematuria. She denies cerebrovascular symptoms. She denies fevers, chills, cough, or wheezing. She denies GI or symptoms. Upon review of her records, she did have an EKG in 2008 which showed sinus tachycardia of 109. In the Spring of last year, she was noted to have heart rates in the 110s-120s in her vital signs. She has been on metoprolol succinate 100 mg daily chronically, and she believes it was initiated due to hypertension. Family history: Her father had CABG x4 in his 70s. Her mother had hypertension. Social history: She is not and has no children. 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 She has a 35 pack year history of smoking, but she quit in 2003. She notes social alcohol use. Allergies Allergy/AdvReac Type Severity Reaction Status Date / Time No Known Allergies Allergy Mild 0 Verified 10/27/19 18:42 Home Medications Home Medications Medication Instructions Recorded Confirmed Type PreserVision AREDS 1 tab PO QPM 08/13/18 10/27/19 History cholecalciferol (vitamin D3) 1,000 unit PO QAM 08/13/18 10/27/19 History [Vitamin D3] cinnamon bark [Cinnamon] 500 mg PO QAM 08/13/18 10/27/19 History omega 8-mpw-xsl-fish oil [Fish Oil] 1 cap PO QAM 08/13/18 10/27/19 History fexofenadine 60 mg tablet 60 mg PO QPM tab 03/29/19 10/27/19 History meloxicam 15 mg tablet 15 mg PO QAM #30 tab 03/29/19 10/27/19 Rx lisinopril 40 mg tablet 40 mg PO DAILY #30 tab 04/04/19 10/27/19 Rx levothyroxine 175 mcg tablet 175 mcg PO DAILY #30 tab 04/25/19 10/27/19 Rx cyclobenzaprine 5 mg tablet 5 mg PO TID PRN #60 tab 04/29/19 10/27/19 Rx glimepiride 4 mg tablet 4 mg PO DAILY #90 tab 04/29/19 10/27/19 Rx amoxicillin 500 mg capsule 2,000 mg PO ONCE PRN #4 cap 08/05/19 10/27/19 Rx atorvastatin 40 mg tablet 40 mg PO PM #90 tab 08/05/19 10/27/19 Rx dulaglutide 1.5 mg/0.5 mL 1.5 mg SUBCUT WK #2 ml 08/05/19 10/27/19 Rx subcutaneous pen injector metformin 500 mg tablet,extended 1,000 mg PO BID #360 tab 08/05/19 10/27/19 Rx release 24 hr acetaminophen 300 mg-codeine 30 mg 1 - 2 tab PO .COMPLEX PRN #30 tab 09/12/19 10/27/19 Rx tablet magnesium oxide 400 mg PO DAILY #30 cap 10/28/19 Rx metoprolol succinate [Toprol XL] 200 mg PO DAILY #30 tab 10/28/19 Rx Patient History Medical History Sciatica SOB (shortness of breath) on exertion OVERWEIGHT Surgical History H/O dilation and curettage History of arthroscopy LEFT History of tooth extraction WISDOM TEETH History of total hip arthroplasty LEFT, 10/2008 Hx of hysterectomy Hx of knee surgery Hx of laparoscopy Family History Mother Family history of diabetes mellitus Hypertension Kidney disease Father Family history of diabetes mellitus Diabetes Coronary heart disease Hypertension Arthritis Heart disease Family/Other Family hx of colon cancer Brother Alcohol abuse Other Colorectal cancer Denies family history of Ovarian cancer Prostate cancer Osteoporosis Myocardial infarction Breast cancer Social History Preferred Language: Central African Communication Ability: Effective Hearing Ability: Normal Patient Financial Advocate Required: No Beliefs That Will Affect Care: None marital status: Single Current Living Situation: Alone current occupational status: retired Feels Safe at Home: Yes Smoking Status: Former smoker Tobacco Type: cigarettes ; Age Started Using Tobacco: 19 ; Age Quit Using Tobacco: 53 ; packs per day: 2 ; Cigarettes Per Day: 40 ; Number of Years Since Quit: 16 ; Second Hand Exposure: No ; Hx Alcohol Use: Yes Hx Substance Use: No Seatbelt Use: always Sunscreen Use: No Review of Systems Review of Systems: All systems reviewed & are unremarkable except as noted in Subjective Physical Exam Physical Exam: Constitutional: Alert, oriented, in no acute distress HEENT: Head is atraumatic and normocephalic. EOMs intact. Sclera non-icteric. Face is symmetric. No perioral cyanosis. Mucous membranes moist Neck: Supple, no JVD, no carotid bruits Pulmonary: Normal respiratory effort, clear to auscultation throughout Cardiac: Tachycardic, regular, normal S1 and S2, no gallops, no rubs, no murmurs Extremities: No pitting edema. No clubbing or cyanosis. Pulses 2+ and symmetric Abdomen: Normal bowel sounds, soft, non-tender, no abdominal masses palpated Skin: Normal skin color, turgor, and pigmentation. No rash or skin lesions Neurological: Oriented to person, place, and time Results & Data ([facility]) Vital Signs (Past 12 Hours) Vital Signs Temp Pulse Pulse Pulse Resp BP BP 10/28/19 08:00 98.2 F 96 H 120 H 18 176/101 H 10/28/19 02:00 97.7 F 95 H 16 10/28/19 01:21 114 H 18 10/28/19 00:32 111 H 18 10/27/19 23:23 111 H 18 10/27/19 22:31 115 H 27 H 10/27/19 22:30 111 H 20 168/102 H BP Pulse Ox 10/28/19 08:00 159/104 H 97 10/28/19 02:00 147/96 H 97 10/28/19 01:21 183/114 H 97 10/28/19 00:32 171/113 H 97 10/27/19 23:23 164/102 H 98 10/27/19 22:31 97 10/27/19 22:30 97 Laboratory Results Laboratory Results WBC 5.06 K/uL (4.8-10.8) 10/28/19 05:59 RBC 4.33 M/uL (4.2-5.4) 10/28/19 05:59 Hgb 13.2 g/dL (12.0-16.0) 10/28/19 05:59 Hct 38.2 % (37-47) 10/28/19 05:59 MCV 88.2 fL (80-100) 10/28/19 05:59 MCH 30.5 pg (25-34) 10/28/19 05:59 MCHC 34.6 g/dL (32-36) 10/28/19 05:59 RDW Std Deviation 42.9 fL (36.4-46.3) 10/28/19 05:59 RDW Coeff of Kamla 13.3 % (11.5-14.5) 10/28/19 05:59 Plt Count 107 K/uL (130-400) L 10/28/19 05:59 MPV 10.6 fL (7.4-10.4) H 10/28/19 05:59 Immature Gran % (Auto) 0.6 % 10/28/19 05:59 Neut % (Auto) 55.1 % 10/28/19 05:59 Lymph % (Auto) 34.0 % 10/28/19 05:59 Hoke % (Auto) 8.5 % 10/28/19 05:59 Eos % (Auto) 1.6 % 10/28/19 05:59 Baso % (Auto) 0.2 % 10/28/19 05:59 Neut # (Auto) 2.79 K/uL (1.4-6.5) 10/28/19 05:59 Lymph # (Auto) 1.72 K/uL (1.2-3.4) 10/28/19 05:59 Hoke # (Auto) 0.43 K/uL (0.11-0.59) 10/28/19 05:59 Eos # (Auto) 0.08 K/uL (0-0.5) 10/28/19 05:59 Baso # (Auto) 0.01 K/uL (0-0.2) 10/28/19 05:59 Immature Gran # (Auto) 0.03 K/uL (0.00-0.02) H 10/28/19 05:59 Peripher Smr Path Cons 10/28/19 05:59 PT 11.4 Seconds (9.0-12.0) 10/28/19 05:59 INR 1.1 (0.9-1.1) 10/28/19 05:59 APTT 25.1 Seconds (21.0-31.0) 10/28/19 05:59 PTT Ratio 0.9 10/28/19 05:59 Fibrinogen 276 mg/dl (184-400) 10/28/19 05:59 Fibrin Degrad Products <10 mcg/ml (<10) 10/28/19 05:59 D-Dimer 770 ug/L FEU (0-500) H* 10/27/19 18:58 Sodium 140 mmol/L (136-145) 10/28/19 05:59 Potassium 3.5 mmol/L (3.5-5.1) 10/28/19 05:59 Chloride 107 mmol/L (98-107) 10/28/19 05:59 Carbon Dioxide 23 mmol/L (21-32) 10/28/19 05:59 Anion Gap 9.0 (3-11) 10/28/19 05:59 BUN 8 mg/dl (7-18) 10/28/19 05:59 Creatinine 0.79 mg/dl (0.6-1.2) 10/28/19 05:59 Est Cr Clr Drug Dosing 89.4 ml/min 10/28/19 05:59 Est GFR ( Amer) 89.1 10/28/19 05:59 Est GFR (Non-Af Amer) 76.9 10/28/19 05:59 BUN/Creatinine Ratio 10.0 (10-20) 10/28/19 05:59 Glucose 155 mg/dl (70-99) H 10/28/19 05:59 Calcium 8.5 mg/dl (8.5-10.1) 10/28/19 05:59 Phosphorus 2.9 mg/dl (2.5-4.9) 10/28/19 05:59 Phosphorus Cancelled 10/28/19 05:59 Magnesium 1.9 mg/dl (1.8-2.4) 10/28/19 05:59 Magnesium Cancelled 10/28/19 05:59 Total Bilirubin 1.4 mg/dl (0.2-1) H 10/28/19 05:59 AST 29 U/L (15-37) 10/28/19 05:59 ALT 34 U/L (12-78) 10/28/19 05:59 Alkaline Phosphatase 77 U/L (45-117) 10/28/19 05:59 Total Creatine Kinase 64 U/L (26-192) 10/27/19 18:58 CK-MB (CK-2) 2.2 ng/ml (0.5-3.6) 10/27/19 18:58 CK/CKMB % Calc 3.4 (0-3.0) H 10/27/19 18:58 Troponin I < 0.015 ng/ml (0-0.045) 10/27/19 18:58 Total Protein 6.7 gm/dl (6.4-8.2) 10/28/19 05:59 Albumin 3.7 gm/dl (3.4-5.0) 10/28/19 05:59 Globulin 3.0 gm/dl (2.5-4.0) 10/28/19 05:59 Albumin/Globulin Ratio 1.3 (0.9-2) 10/28/19 05:59 Lipase 206 U/L (73-393) 10/27/19 18:58 TSH 1.610 uIu/ml (0.300-4.500) 10/27/19 18:58 Diagnostic Findings CXR: No acute process. Chest CTA: No evidence of PE. Lungs are clear. EKG: Sinus tachycardia at 129 bpm. Telemetry: Sinus rhythm in the 90s-140s. PG Care Time/CCT Total # of Minutes Spent Total Time Spent with Patient: Total time spent is greater than 50% in coordination of care (as documented) at patient's floor/unit and/or counseling patient: Coding Level of Care Code 53898 Initial Inpt Care Lvl 3 Diagnoses Sinus tachycardia R00.0 Hypertension I10 Hyperlipidemia E78.5 Hypomagnesemia E83.42
--- NOTE | 2019-10-28 12:17 | Discharge Summary ---
Date of Service October 28, 2019 Admission HPI Per Admitting Provider Pt is a 69yo female with a PMHx significant for HTN, HLD, DMII, hypothyroidism, renal insufficiency, lumbar radiculopathy who presented to her PCP for a regular visit where she was noted to have sinus tachycardia on EKG. Pt states that she has been completely asymptomatic, did not think anything out of the ordinary was wrong with her. Presented to her PCP today for a regular followup appointment of her chronic issues where she was noted to be tachycardic to the 130s. An EKG obtained showed sinus tachycardia and she was advised to go to the ED for further evaluation. Denies any recent significant lifestyle changes. Denies any headache, changes to vision, cough, runny nose, sore throat, dizziness, weakness, chest pain, SOB, palpitations, abdominal pain, diarrhea or constipation, swelling in hands or feet or numbness or tingling anywhere. Quit smoking in 2003 after smoking for ~30 years. About 2 alcohol drinks a year. Denies recreational drug use. Lives alone at home. ED course: 500 fluid bolus, 1 dose of Lopressor 5mg, 1 bag of magnesium sulfate in D5W Principal Diagnosis Inappropriate sinus tachycardia Discharge Exam Constitutional WD/WN, vitals as above Eyes PERRL, conjunctivae normal, anicteric sclerae ENMT external ear and nose normal, oropharynx normal Neck trachea midline, no thyromegaly Respiratory normal respiratory effort, lungs clear to auscultation Cardiovascular Rate/Rhythm: regular rhythm and + tachycardic Heart Sounds: normal S1 and normal S2; no murmur Extremities: normal capillary refill; no edema Gastrointestinal (Abdomen) normal bowel sounds, soft, nontender, no hepatosplenomegaly Musculoskeletal no cyanosis or clubbing, extremities motor strength 5/5 Skin no rashes, warm and dry Neurologic patellar DTR's 2+ bilat, sensation intact and PERRL, EOMI, accommodation nl, no face palsy, no dysarthria Psychiatric A+Ox3, euthymic affect Lymphatic no cervical or axillary lymphadenopathy Discharge Data Allergies Allergy/AdvReac Type Severity Reaction Status Date / Time No Known Allergies Allergy Mild 0 Verified 10/27/19 18:42 Consultations 10/27/19 21:07 ED Decision to Admit Stat 10/28/19 01:52 Consult Cardiology Routine Ordered Studies 10/27/19 19:48 CT angio chest PE protocol Stat Hospital Course (1) Sinus tachycardia: presented with rates in 130-140's CT angiogram chest negative for PE no signs of infection of hypovolemia TSH normal at 1.6 review of records shows persistent tachycardia in outpatient setting most likely etiology is inappropriate sinus tachycardia cardiology recommends increasing Toprol from 100mg to 200mg daily echo done, report pending at discharge spoke with evan Huerta for discharge to home (2) Hypomagnesemia: unsure why magnesium low responded well to IV supplementation, up to 1.9 on discharge recommend Mag Oxide 400mg PO daily (3) Hypertension: BP elevated at times during stay will increase Toprol to 200mg daily continue Lisinopril (4) Hypothyroidism: TSH normal at 1.6 continue Synthroid (5) Hyperlipidemia: continue Lipitor (6) Diabetes mellitus, type 2: no hypo or hyperglycemia episodes continue home regimen of Metformin and Glimepiride and Dulaglutide Total Time Total Time Spent Total Time Spent (In Minutes): 32 minutes Total Time Includes: Examination of the Patient, Discharge Planning, Medication Reconciliation and Communication With Other Providers (Dr. Hutchinson) Discharge Plan Discharge Items Patient Disposition: Home - Self-Care Reason For Visit: SINUS TACH, HYPOMAG Discharge Diagnosis: Sinus tachycardia Hypomagnesemia Condition on Discharge: Good Goals: control heart rate with increased dose of Toprol magnesium supplementation Activity: Resume your previous activity Non-emergency contact: Primary Care Provider Call non-emergency contact if: you have any medication questions Follow-up/Referrals: Gemma Tompkins CRNP [Primary Care Provider] - (Please call your primary care doctor to see if you need to schedule a follow up appointment.) Diet: Carb Consistent or DM2 and Heart Healthy Addtl Attending Provider Instructions: Medications: - TOPROL: increase to 200mg in the morning new prescription sent to pharmacy - MAGNESIUM OXIDE: 400mg daily, this is over the counter, you can get this at pharmacy Sinus tachycardia EKG showed sinus tachycardia, no evidence of arrhythmia CT angiogram of the chest was NEGATIVE for pulmonary embolism, no other abnormalities echocardiogram done, results pending evaluated by cardiology, you are clear for discharge, they recommend increasing Toprol to 200mg daily they reviewed chart, you have been noted to be tachycardic for years, likely you have resting sinus tachycardia Hypomagnesemia: magnesium was quite low at 1.0, improved to 1.9 which is normal after supplementation recommend that you take magnesium supplement once a day Pending Studies at Discharge: Yes Studies:: echocardiogram results Stand-Alone Forms: My [facility], Smoking Cessation Medications and DC Order Prescriptions: New magnesium oxide 400 mg magnesium capsule 400 mg PO DAILY Qty: 30 RF: 0 metoprolol succinate [Toprol XL] 200 mg tablet extended release 24 hr 200 mg PO DAILY Qty: 30 RF: 3 Continued lisinopril 40 mg tablet 40 mg PO DAILY Qty: 30 RF: 5 levothyroxine 175 mcg tablet 175 mcg PO DAILY Qty: 30 RF: 5 cyclobenzaprine 5 mg tablet 5 mg PO TID PRN (Reason: sciatica) Qty: 60 RF: 2 glimepiride 4 mg tablet 4 mg PO DAILY Qty: 90 RF: 3 atorvastatin 40 mg tablet 40 mg PO PM Qty: 90 RF: 2 Trulicity 1.5 mg/0.5 mL pen injector 1.5 mg SUBCUT WK Qty: 2 RF: 2 metformin 500 mg tablet extended release 24 hr 1,000 mg PO BID Qty: 360 RF: 2 amoxicillin 500 mg capsule 2,000 mg PO ONCE PRN (Reason: history of hip replacement) Qty: 4 RF: 1 acetaminophen-codeine 300-30 mg tablet 1 - 2 tab PO .COMPLEX PRN (Reason: pain) Qty: 30 RF: 0 meloxicam 15 mg tablet 15 mg PO QAM Qty: 30 RF: 5 fexofenadine [Hayley Allergy] 60 mg tablet 60 mg PO QPM RF: 0 PreserVision AREDS [id number] Tablet 1 tab PO QPM RF: 0 cholecalciferol (vitamin D3) [Vitamin D3] 1,000 unit Capsule 1,000 unit PO QAM RF: 0 cinnamon bark [Cinnamon] 500 mg Capsule 500 mg PO QAM RF: 0 omega [id number] oil [Fish Oil] 1,000 mg (120 mg-180 mg) Capsule 1 cap PO QAM RF: 0 Discontinued metoprolol succinate 100 mg tablet extended release 24 hr 100 mg PO QAM Qty: 30 RF: 3 Discharge Orders: Discharge Order (Routine); Ordered 10/28/19 Ordered By: Sean Aguayo Admission Data Admit Date/Time: 10/27/19 22:46 Attending Provider: Sean Aguayo Admit Provider: Ada Ling Primary Care Provider: Gemma Tompkins Other Providers: Ricky Manning ; Brian Hutchinson Other Interventions: Discharge Summary Assessment (RN) Last Done: 10/28/19 14:31 DC Date/Time DO NOT enter until pt leaves facility: 10/28/19 16:00 Coding Level of Care Code D/C Day Management >30 mins Diagnoses Sinus tachycardia R00.0 Hypomagnesemia E83.42 Hypertension I10 Hypothyroidism E03.9 Hyperlipidemia E78.5 Diabetes mellitus, type 2 E11.9
--- NOTE | 2019-10-28 15:21 | Electrocardiogram Report ---
Test Reason : Blood Pressure : / mmHG Vent. Rate : 129 BPM Atrial Rate : 129 BPM P-R Int : 140 ms QRS Dur : 090 ms QT Int : 310 ms P-R-T Axes : -21 046 024 degrees QTc Int : 454 ms Sinus tachycardia Otherwise normal ECG When compared with ECG of 11-OCT-2008 21:43, Nonspecific T wave abnormality, improved in Inferior leads Nonspecific T wave abnormality no longer evident in Lateral leads Confirmed by Brian Hutchinson ([id number]) on 10/28/2019 3:20:59 PM Referred By: Gemma Tompkins Confirmed By:Brian Hutchinson
--- NOTE | 2019-10-28 16:36 | XCELERA ---
[id number]
[2019-10-28] MEDS ORDERED: FEXOFENADINE 60 MG TAB PO SCH (21:00)
[2019-10-28] MEDS ORDERED: ATORVASTATIN 40 MG TAB PO SCH (21:00)
--- NOTE | 2019-10-31 23:25 | Billing Data ---
Date of Service October 31, 2019 Coding Level of Care Code 82445 Initial Inpt Care Lvl 3
== END 2019-10-28 16:00 | disposition home or self-care (01) | DRG 310 ==
LOC: ED 18:07 → SUATTDRO 22:46 → 2N 22:46

== ENCOUNTER 2022-12-30 12:47 | Inpatient (IN) ==
--- NOTE | 2022-12-30 13:05 | Emergency Department Note ---
Impression & Plan Shortness of breath, Pulmonary embolism, Non-ST elevation NV (NSTEMI), DKA (diabetic ketoacidosis) ED Provider Note HISTORY OF PRESENT ILLNESS: Patient is a 72-year-old female presenting with acute onset of shortness of breath. Patient reports that early this morning she woke up and felt like she could not catch her breath. She does not wear any supplemental oxygen at baseline. Denies any DVT or PE history. She is not on any anticoagulation. Denies any chest pain. Denies any history of cardiac stents. Reports that she was not able to catch her breath so she called 911. Denies any abdominal pain, back pain, nausea or vomiting. ROS: as above PHYSICAL EXAM: Constitutional: Patient appears in no acute distress. HENT: Head: Normocephalic and atraumatic. Eyes: EOMI, PERRL Mouth/Throat: Mucous membranes moist. Neck: Trachea midline. Neck supple. Cardiovascular: Tachycardic with regular rhythm. No murmurs, rubs or gallops. Intact distal pulses. Pulmonary/Chest: Patient is tachypneic. Decreased breath sounds bilaterally Abdominal: Abdomen soft, no tenderness, rebound or guarding. Musculoskeletal: No tenderness or deformity noted. +2 pitting edema of bilateral lower extremities Skin: Warm and dry. No rash, erythema, pallor or cyanosis Psychiatric: Appropriate mood and affect for situation. Neurological: Alert and keenly responsive. CN II-XII grossly intact, moving all extremities equally and fully. MDM: - Vitals signs showed tachycardia and tachypnea - History obtained via patient. Patient presents with acute onset of shortness of breath. Patient reports she woke up this morning at 9 AM and could not catch her breath. Does not wear any supplemental oxygen at baseline. Denies any chest pain. Denies any anticoagulation use. Denies any abdominal pain, nausea or vomiting. - Chronic conditions affecting care: HTN; HLD; DM-2 - Differential diagnoses include, but are not limited to: Congestive heart failure; acute coronary syndrome; COPD/asthma exacerbation; pulmonary edema; pulmonary embolism; pneumonia; pneumothorax; viral syndrome - Order placed for continuous cardiac monitoring. At this time, monitor showed rate of 130 bpm with normal sinus rhythm, per my interpretation. - External medical records reviewed. EMS run sheet reviewed. Patient was tachycardic in route. - EKG reviewed by myself showed normal sinus rhythm. Rate tachycardic at 137 bpm. QTc 465. No acute ischemic changes - Laboratory workup interpreted by myself showed leukocytosis (WBC 11.1); stable electrolytes other than hypomagnesemia (Mg 1.4); elevated troponin (52.5); hyperglycemia (glucose 453); elevated anion gap (19); normal BNP - VBG shows acidosis (pH 7.2) - CXR negative for pneumonia - CT PE showed extensive pulmonary emboli with evidence of right heart strain - Patient started on heparin bolus and drip. - Given 2L LR for fluid resusitation. Started on insulin drip for DKA. - Viral respiratory panel negative - Given 10 units IV insulin bolus and 1g IV magnesium. - Discussed case with ICU. They do not recommend TNK at this time. - Discussion was had with psychotherapist social worker about patient's case and need for admission - Hospitalist consulted for admission [facility] I provided 56 minutes of critical care time to this patient's care outside of billable procedures. ASSESSMENT AND PLAN: Diagnosis: shortness of breath; DKA; pulmonary embolism; NSTMEI; elevated lactate Plan: admit Past Med/Surg History Medical History (Updated 12/30/22 @ 16:27 by Keo Marie MD) Chronic back pain TO RIGHT LEG Degenerative disc disease Diabetes mellitus, type 2 Hyperlipidemia Hypertension Hypothyroidism Osteoarthritis Sciatica Sinus tachycardia added magnesium to medication regimen by cardiology at [facility] SOB (shortness of breath) on exertion OVERWEIGHT Surgical History H/O dilation and curettage History of colonoscopy History of tooth extraction WISDOM TEETH History of total hip arthroplasty LEFT, 10/2008 S/P epidural steroid injection S/P left knee arthroscopy Family History Mother Family history of diabetes mellitus Hypertension Kidney disease Father Family history of diabetes mellitus Diabetes Coronary heart disease Hypertension Arthritis Heart disease Family/Other Family hx of colon cancer Brother Alcohol abuse Other Colorectal cancer Denies family history of Ovarian cancer Prostate cancer Osteoporosis Myocardial infarction Breast cancer Social History Smoking Status: Former smoker Age Started Using Tobacco: 19; Age Quit Using Tobacco: 53; packs per day: 2; Cigarettes Per Day: 40; Second Hand Exposure: No; Do You Dip or Chew Tobacco: No; Hx Alcohol Use: No Hx Substance Use: No Preferred Language: Lebanese Communication Ability: Effective Hearing Ability: Normal 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 Beliefs That Will Affect Care: None marital status: Single Current Living Situation: Alone current occupational status: retired Feels Safe at Home: Yes Dental Care, Regularly: Yes Physical Activity Frequency: 1-2 Times per Week Seatbelt Use: always Sunscreen Use: No Assistive Devices: Glasses and Walker Allergies Allergies Allergy/AdvReac Type Severity Reaction Status Date / Time No Known Allergies Allergy Mild 0 Verified 12/30/22 15:46 Home Meds Home Medications Medication Instructions Recorded Confirmed cholecalciferol (vitamin D3) 25 1,000 unit PO QAM 08/13/18 12/30/22 mcg (1,000 unit) capsule (Vitamin D3) cinnamon bark 500 mg capsule 500 mg PO QAM 08/13/18 12/30/22 (Cinnamon) omega 7-rxg-mgp-fish oil 1,000 mg 1 cap PO QAM 08/13/18 12/30/22 (120 mg-180 mg) capsule (Fish Oil) fexofenadine 60 mg tablet (Hayley 60 mg PO QPM 03/29/19 12/30/22 Allergy) magnesium oxide 400 mg PO QAM 05/15/22 12/30/22 metoprolol succinate 200 mg 200 mg PO QAM 05/15/22 12/30/22 tablet,extended release 24 hr (Toprol XL) acetaminophen 300 mg-codeine 30 mg 1 - 2 tab PO .Q4-6HRS PRN pain 12/30/22 12/30/22 tablet amoxicillin 500 mg capsule 2,000 mg PO DIRECTED PRN PRIOR 12/30/22 12/30/22 TO DENTAL WORK. [id number] 5 mg-zeaxanth 1 cap PO DAILY 12/30/22 12/30/22 1 mg-bilberry 7.5 mg-herbal capsule (Macular Health Formula) Previous Rx's Medication Instructions Recorded atorvastatin 40 mg tablet 40 mg PO PM #90 tabs 11/25/21 meloxicam 15 mg tablet 15 mg PO QAM #30 tabs 12/16/21 cyclobenzaprine 5 mg tablet 5 mg PO TID PRN sciatica #60 tabs 05/01/22 levothyroxine 150 mcg tablet 150 mcg PO QAM #90 tabs 06/02/22 glimepiride 4 mg tablet 4 mg PO QAM #90 tabs 09/23/22 lisinopril 40 mg tablet 40 mg PO QAM #90 tabs 09/23/22 metformin 500 mg tablet,extended 1,000 mg PO BID #360 tabs 09/23/22 release 24 hr dulaglutide 1.5 mg/0.5 mL 1.5 mg (0.5 mL) subcut WK #2 mL 10/20/22 subcutaneous pen injector (Trulicity) Results & Data (ED) Vital Signs Vital Signs - 24 hr 12/30/22 12:58 12/30/22 12:58 12/30/22 13:06 Temperature 36.4 C L Temperature Source Oral Pulse Rate 141 H 140 H Pulse Rate from SpO2 Sensor Pulse Rhythm Regular Pulse Strength Normal Respiratory Rate 26 H Respiratory Effort / Characteristics Spontaneous Labored Non-Labored Spontaneous Respiratory Depth Normal Respiratory Pattern Tachypnea Regular Blood Pressure 138/85 Blood Pressure Mean 102 Blood Pressure Position Lying Pulse Oximetry 95 Oxygen Delivery Method Nasal Cannula Oxygen Flow Rate 4 Sepsis Recent Fever Within 48 Hours No Sepsis New/Unexplained Change in Mental Status N/A Sepsis Action Taken by Nursing No Action Required 12/30/22 13:00 12/30/22 13:40 12/30/22 14:20 Temperature Temperature Source Pulse Rate 139 H 140 H 131 H Pulse Rate from SpO2 Sensor 131 H Pulse Rhythm Pulse Strength Respiratory Rate 22 21 20 Respiratory Effort / Characteristics Respiratory Depth Respiratory Pattern Blood Pressure 102/78 94/68 L Blood Pressure Mean 86 76 Blood Pressure Position Pulse Oximetry 97 93 90 Oxygen Delivery Method Nasal Cannula Room Air Room Air Oxygen Flow Rate 4 Sepsis Recent Fever Within 48 Hours Sepsis New/Unexplained Change in Mental Status Sepsis Action Taken by Nursing 12/30/22 14:30 12/30/22 15:00 12/30/22 15:20 Temperature Temperature Source Pulse Rate 133 H 129 H 132 H Pulse Rate from SpO2 Sensor 133 H 130 H 132 H Pulse Rhythm Pulse Strength Respiratory Rate 25 H 22 27 H Respiratory Effort / Characteristics Respiratory Depth Respiratory Pattern Blood Pressure 116/79 107/77 Blood Pressure Mean 91 87 Blood Pressure Position Pulse Oximetry 92 93 93 Oxygen Delivery Method Room Air Room Air Room Air Oxygen Flow Rate Sepsis Recent Fever Within 48 Hours Sepsis New/Unexplained Change in Mental Status Sepsis Action Taken by Nursing 12/30/22 15:30 12/30/22 15:40 12/30/22 16:00 Temperature Temperature Source Pulse Rate 127 H 131 H 127 H Pulse Rate from SpO2 Sensor 128 H Pulse Rhythm Pulse Strength Respiratory Rate 26 H 30 H 19 Respiratory Effort / Characteristics Respiratory Depth Respiratory Pattern Blood Pressure 127/102 H 109/81 Blood Pressure Mean 110 90 Blood Pressure Position Pulse Oximetry 95 98 97 Oxygen Delivery Method Nasal Cannula Nasal Cannula Nasal Cannula Oxygen Flow Rate 2 2 2 Sepsis Recent Fever Within 48 Hours Sepsis New/Unexplained Change in Mental Status Sepsis Action Taken by Nursing Laboratory Data 12/30/22 13:00 12/30/22 13:00 Lab Results 12/30/22 12/30/22 12/30/22 Range/Units 12:55 13:00 13:00 WBC 11.10 H (4.8-10.8) K/ul RBC 4.96 (4.20-5.40) M/uL Hgb 15.5 (12.0-16.0) g/dl Hct 45.1 (37.0-47.0) % MCV 90.9 (80.0-100.0) fL MCH 31.3 (25.0-34.0) pg MCHC 34.4 (32.0-36.0) g/dL RDW Std Deviation 46.4 H (36.4-46.3) fL RDW Coeff of Kamla 13.9 (11.5-14.5) % Plt Count 151 (130-400) K/uL MPV 11.5 (9.4-12.4) fL Immature Gran % (Auto) 1.5 % Neut % (Auto) 65.5 % Lymph % (Auto) 25.9 % [place] % (Auto) 5.2 % Eos % (Auto) 1.2 % Baso % (Auto) 0.7 % Neut # (Auto) 7.26 H (1.40-6.50) K/uL Lymph # (Auto) 2.88 (1.20-3.40) K/uL [place] # (Auto) 0.58 (0.11-0.59) K/uL Eos # (Auto) 0.13 (0.00-0.50) K/uL Baso # (Auto) 0.08 (0.00-0.20) K/uL Immature Gran # (Auto) 0.17 (0.01-0.20) K/uL PT 11.9 (9.0-12.0) Seconds INR 1.1 (0.9-1.1) VBG pH (7.36-7.41) VBG pCO2 (38-50) mmHg VBG pO2 mmHg VBG HCO3 mmol/L VBG O2 Saturation % VBG Base Excess mEq/L Sodium (136-145) mmol/L Potassium (3.5-5.1) mmol/L Chloride (98-107) mmol/L Carbon Dioxide (21-32) mmol/L Anion Gap (3-11) BUN (6-23) mg/dl Creatinine (0.6-1.2) mg/dl Est Cr Clr Drug Dosing ml/min Est GFR ( Amer) ml/min Est GFR (Non-Af Amer) ml/min BUN/Creatinine Ratio (10-20) Glucose (70-99(Fasting)) mg/dl POC Glucose 373 H* (70-99) mg/dl Lactate (0.4-2.0) mmol/L Calcium (8.6-10.3) mg/dl Magnesium (1.7-2.4) mg/dl Total Bilirubin (0.2-1.0) mg/dl AST (13-39) U/L ALT (7-52) U/L Alkaline Phosphatase (34-104) U/L Troponin I High Sens (0-14) pg/ml B-Natriuretic Peptide (0-100) pg/ml Total Protein (6.0-8.3) gm/dl Albumin (3.4-5.0) gm/dl Globulin (2.5-4.0) gm/dl Albumin/Globulin Ratio (0.9-2) Adenovirus (PCR) (NotDetected) B. pertussis DNA (PCR) (NotDetected) B.parapertussis DNA PCR (NotDetected) C. pneumoniae DNA (PCR) (NotDetected) Coronavirus OC43 (PCR) (NotDetected) Coronavirus HKU1 (PCR) (NotDetected) Coronavirus 229E (PCR) (NotDetected) SARS-CoV-2 (PCR) (NotDetected) Coronavirus NL63 (PCR) (NotDetected) Human Metapneumovir PCR (NotDetected) Influenza Type A (PCR) (NotDetected) Influenza Type B (PCR) (NotDetected) M. pneumoniae (PCR) (NotDetected) Parainfluenza 1 (PCR) (NotDetected) Parainfluenza 2 (PCR) (NotDetected) Parainfluenza 3 (PCR) (NotDetected) Parainfluenza 4 (PCR) (NotDetected) RSV (PCR) (NotDetected) Entero/Rhino (PCR) (NotDetected) 12/30/22 12/30/22 12/30/22 Range/Units 13:00 13:00 13:12 WBC (4.8-10.8) K/ul RBC (4.20-5.40) M/uL Hgb (12.0-16.0) g/dl Hct (37.0-47.0) % MCV (80.0-100.0) fL MCH (25.0-34.0) pg MCHC (32.0-36.0) g/dL RDW Std Deviation (36.4-46.3) fL RDW Coeff of Kamla (11.5-14.5) % Plt Count (130-400) K/uL MPV (9.4-12.4) fL Immature Gran % (Auto) % Neut % (Auto) % Lymph % (Auto) % [place] % (Auto) % Eos % (Auto) % Baso % (Auto) % Neut # (Auto) (1.40-6.50) K/uL Lymph # (Auto) (1.20-3.40) K/uL [place] # (Auto) (0.11-0.59) K/uL Eos # (Auto) (0.00-0.50) K/uL Baso # (Auto) (0.00-0.20) K/uL Immature Gran # (Auto) (0.01-0.20) K/uL PT (9.0-12.0) Seconds INR (0.9-1.1) VBG pH 7.20 L (7.36-7.41) VBG pCO2 44 (38-50) mmHg VBG pO2 42 mmHg VBG HCO3 17 mmol/L VBG O2 Saturation 64.0 % VBG Base Excess -10.5 mEq/L Sodium 138 (136-145) mmol/L Potassium 4.0 (3.5-5.1) mmol/L Chloride 101 (98-107) mmol/L Carbon Dioxide 18 L (21-32) mmol/L Anion Gap 19 H (3-11) BUN 16 (6-23) mg/dl Creatinine 1.10 (0.6-1.2) mg/dl Est Cr Clr Drug Dosing 61.3 ml/min Est GFR ( Amer) 58.5 ml/min Est GFR (Non-Af Amer) 50.5 ml/min BUN/Creatinine Ratio 14.5 (10-20) Glucose 453 H* (70-99(Fasting)) mg/dl POC Glucose (70-99) mg/dl Lactate (0.4-2.0) mmol/L Calcium 9.7 (8.6-10.3) mg/dl Magnesium 1.4 L (1.7-2.4) mg/dl Total Bilirubin 1.3 H (0.2-1.0) mg/dl AST 23 (13-39) U/L ALT 25 (7-52) U/L Alkaline Phosphatase 80 (34-104) U/L Troponin I High Sens 52.2 H* (0-14) pg/ml B-Natriuretic Peptide 7 (0-100) pg/ml Total Protein 7.1 (6.0-8.3) gm/dl Albumin 4.3 (3.4-5.0) gm/dl Globulin 2.8 (2.5-4.0) gm/dl Albumin/Globulin Ratio 1.5 (0.9-2) Adenovirus (PCR) (NotDetected) B. pertussis DNA (PCR) (NotDetected) B.parapertussis DNA PCR (NotDetected) C. pneumoniae DNA (PCR) (NotDetected) Coronavirus OC43 (PCR) (NotDetected) Coronavirus HKU1 (PCR) (NotDetected) Coronavirus 229E (PCR) (NotDetected) SARS-CoV-2 (PCR) (NotDetected) Coronavirus NL63 (PCR) (NotDetected) Human Metapneumovir PCR (NotDetected) Influenza Type A (PCR) (NotDetected) Influenza Type B (PCR) (NotDetected) M. pneumoniae (PCR) (NotDetected) Parainfluenza 1 (PCR) (NotDetected) Parainfluenza 2 (PCR) (NotDetected) Parainfluenza 3 (PCR) (NotDetected) Parainfluenza 4 (PCR) (NotDetected) RSV (PCR) (NotDetected) Entero/Rhino (PCR) (NotDetected) 12/30/22 12/30/22 Range/Units 13:40 15:48 WBC (4.8-10.8) K/ul RBC (4.20-5.40) M/uL Hgb (12.0-16.0) g/dl Hct (37.0-47.0) % MCV (80.0-100.0) fL MCH (25.0-34.0) pg MCHC (32.0-36.0) g/dL RDW Std Deviation (36.4-46.3) fL RDW Coeff of Kamla (11.5-14.5) % Plt Count (130-400) K/uL MPV (9.4-12.4) fL Immature Gran % (Auto) % Neut % (Auto) % Lymph % (Auto) % [place] % (Auto) % Eos % (Auto) % Baso % (Auto) % Neut # (Auto) (1.40-6.50) K/uL Lymph # (Auto) (1.20-3.40) K/uL [place] # (Auto) (0.11-0.59) K/uL Eos # (Auto) (0.00-0.50) K/uL Baso # (Auto) (0.00-0.20) K/uL Immature Gran # (Auto) (0.01-0.20) K/uL PT (9.0-12.0) Seconds INR (0.9-1.1) VBG pH (7.36-7.41) VBG pCO2 (38-50) mmHg VBG pO2 mmHg VBG HCO3 mmol/L VBG O2 Saturation % VBG Base Excess mEq/L Sodium (136-145) mmol/L Potassium (3.5-5.1) mmol/L Chloride (98-107) mmol/L Carbon Dioxide (21-32) mmol/L Anion Gap (3-11) BUN (6-23) mg/dl Creatinine (0.6-1.2) mg/dl Est Cr Clr Drug Dosing ml/min Est GFR ( Amer) ml/min Est GFR (Non-Af Amer) ml/min BUN/Creatinine Ratio (10-20) Glucose (70-99(Fasting)) mg/dl POC Glucose (70-99) mg/dl Lactate 6.2 H* (0.4-2.0) mmol/L Calcium (8.6-10.3) mg/dl Magnesium (1.7-2.4) mg/dl Total Bilirubin (0.2-1.0) mg/dl AST (13-39) U/L ALT (7-52) U/L Alkaline Phosphatase (34-104) U/L Troponin I High Sens (0-14) pg/ml B-Natriuretic Peptide (0-100) pg/ml Total Protein (6.0-8.3) gm/dl Albumin (3.4-5.0) gm/dl Globulin (2.5-4.0) gm/dl Albumin/Globulin Ratio (0.9-2) Adenovirus (PCR) Not Detected (NotDetected) B. pertussis DNA (PCR) Not Detected (NotDetected) B.parapertussis DNA PCR Not Detected (NotDetected) C. pneumoniae DNA (PCR) Not Detected (NotDetected) Coronavirus OC43 (PCR) Not Detected (NotDetected) Coronavirus HKU1 (PCR) Not Detected (NotDetected) Coronavirus 229E (PCR) Not Detected (NotDetected) SARS-CoV-2 (PCR) Not Detected (NotDetected) Coronavirus NL63 (PCR) Not Detected (NotDetected) Human Metapneumovir PCR Not Detected (NotDetected) Influenza Type A (PCR) Not Detected (NotDetected) Influenza Type B (PCR) Not Detected (NotDetected) M. pneumoniae (PCR) Not Detected (NotDetected) Parainfluenza 1 (PCR) Not Detected (NotDetected) Parainfluenza 2 (PCR) Not Detected (NotDetected) Parainfluenza 3 (PCR) Not Detected (NotDetected) Parainfluenza 4 (PCR) Not Detected (NotDetected) RSV (PCR) Not Detected (NotDetected) Entero/Rhino (PCR) Not Detected (NotDetected) Administered Medications Heparin Sodium/Dextrose (Heparin Sodium/Dextrose) 25,000 units in 500 mls @ 30 mls/hr IV .[id number] [facility]; Protocol Stop: 01/29/23 15:59 Last Admin: 12/30/22 16:10 Dose: 1,500 units/hr, 30 mls/hr Documented By: BETH Co-signed By: BRENT Discontinued Medications Heparin Sodium (Porcine) (Heparin Sod (Porcine) 1000 Unit/Ml) 7,000 units IV NOW ONE Stop: 12/30/22 16:01 Last Admin: 12/30/22 16:10 Dose: 7,000 units Documented By: BETH Co-signed By: BRENT Magnesium Sulfate/Dextrose (Magnesium Sulfate / D5w) 1 gm in 100 mls @ 100 mls/hr IV NOW STA Stop: 12/30/22 15:18 Last Infusion: 12/30/22 15:35 Dose: 0 mls/hr Documented By: Admin: 12/30/22 14:31 Dose: 100 mls/hr Documented By: BETH Lactated Ringer's (Lr) 1,000 mls @ 999 mls/hr IV .[id number] ONE Stop: 12/30/22 16:14 Last Admin: 12/30/22 16:02 Dose: 999 mls/hr Documented By: BETH Insulin Human Regular (Novolin-R Insulin Per Unit Charge) 10 units IV NOW STA Stop: 12/30/22 14:20 Last Admin: 12/30/22 14:30 Dose: 10 units Documented By: BETH Co-signed By: GER Imaging Data Radiologist's Impression: Chest X-Ray 12/30/22 12:57 XR chest 1V portable CLINICAL HISTORY: Dyspnea. COMPARISON STUDY: Chest radiograph and chest CT October 27, 2019. FINDINGS: Lung volumes are normal. Lungs are clear. There is no pneumothorax or pleural effusion. Cardiac size is normal. Mediastinal contours are normal. There is no evidence for pulmonary edema. IMPRESSION: No acute cardiopulmonary findings. ACT 112: Negative or not required by law. Electronically signed by: Raymond Gonzalez M.D. 12/30/2022 1:21 PM Chest CTA 12/30/22 13:13 CT angio chest PE protocol CLINICAL HISTORY: PE TECHNIQUE: Multidetector row helical CT of the chest was performed with angiographic protocol. Coronal and sagittal reformations were obtained. Coronal and sagittal MIPS were obtained from the axial data set and were submitted for review. Automated dose lowering techniques and/or adjustment according to jaylene ent size were utilized for this exam. CT DOSE: 952.66 mGy.cm Comparison: Comparison is made to CT abdomen pelvis 10/27/2019 FINDINGS: Lungs and pleura: Normal. Heart and pericardium: There is enlargement of the right ventricle compatible with right heart strain. Vessels: Saddle emboli are seen with multiple lobar and segmental branches. Mediastinum and bernarda: Unremarkable. Chest wall and lower neck: Unremarkable. Abdomen: Unremarkable. Bones: Unremarkable. IMPRESSION: Extensive pulmonary emboli are seen with evidence of right heart strain. ACT 112: Negative or not required by law. Electronically signed by: Sean Desouza M.D. 12/30/2022 3:32 PM Discharge Plan Visit Data Chief Complaint: Shortness of Breath/Dyspnea Stated Complaint: SOB ED Provider: Luiza Mccarthy Discharge Problem: Shortness of breath, Pulmonary embolism, Non-ST elevation NV (NSTEMI), DKA (diabetic ketoacidosis) Forms Stand Alone Forms: [facility] Prescriptions Prescriptions: No Action atorvastatin 40 mg tablet 40 mg PO PM Qty: 90 3RF meloxicam 15 mg tablet 15 mg PO QAM Qty: 30 5RF cyclobenzaprine 5 mg tablet 5 mg PO TID PRN (Reason: sciatica) Qty: 60 2RF levothyroxine 150 mcg tablet 150 mcg PO QAM Qty: 90 3RF Trulicity 1.5 mg/0.5 mL pen injector 1.5 mg SUBCUT WK Qty: 2 5RF Rx Instructions: MONDAYS lisinopril 40 mg tablet 40 mg PO QAM Qty: 90 3RF metformin 500 mg tablet extended release 24 hr 1,000 mg PO BID Qty: 360 3RF glimepiride 4 mg tablet 4 mg PO QAM Qty: 90 3RF fexofenadine [Hayley Allergy] 60 mg tablet 60 mg PO QPM cholecalciferol (vitamin D3) [Vitamin D3] 1,000 unit Capsule 1,000 unit PO QAM cinnamon bark [Cinnamon] 500 mg Capsule 500 mg PO QAM omega 0-tui-coi-fish oil [Fish Oil] 1,000 mg (120 mg-180 mg) Capsule 1 cap PO QAM metoprolol succinate [Toprol XL] 200 mg tablet extended release 24 hr 200 mg PO QAM magnesium oxide 400 mg magnesium capsule 400 mg PO QAM Macular Health Formula 5-1-7.5 mg Capsule 1 cap PO DAILY amoxicillin 500 mg capsule 2,000 mg PO DIRECTED PRN (Reason: PRIOR TO DENTAL WORK.) Rx Instructions: 30 minutes prior to dental work acetaminophen-codeine 300-30 mg tablet 1 - 2 tab PO .Q4-6HRS PRN (Reason: pain) Rx Instructions: 1 - 2 tabs PO Q4-6 hours PRN; Referrals Referrals: Gemma Rosenbaum CRNP [Primary Care Provider] -
[2022-12-30 13:21] LABS: Base Excess VBG -10.5 mEq/L; HCO3 VBG 17 mmol/L; PCO2 VBG 44 mmHg (38-50); PO2 VBG 42 mmHg
--- NOTE | 2022-12-30 13:22 | XRay Report ---
XR chest 1V portable CLINICAL HISTORY: Dyspnea. COMPARISON STUDY: Chest radiograph and chest CT October 27, 2019. FINDINGS: Lung volumes are normal. Lungs are clear. There is no pneumothorax or pleural effusion. Car diac size is normal. Mediastinal contours are normal. There is no evidence for pulmonary edema. IMPRESSION: No acute cardiopulmonary findings. ACT 112: Negative or not required by law. Electronically signed by: Raymond Gonzalez M.D. 12/30/2022 1:21 PM
[2022-12-30 13:40] LABS: INR 1.1 (0.9-1.1); Prothrombin Time 11.9 Seconds (9.0-12.0)
[2022-12-30 13:41] LABS: Basophils # (auto) 0.08 K/uL (0.00-0.20); Basophils % (auto) 0.7 %; Eosinophils # (auto) 0.13 K/uL (0.00-0.50); Eosinophils % (auto) 1.2 %; Hematocrit (blood only) 45.1 % (37.0-47.0); Hemoglobin 15.5 g/dl (12.0-16.0); Immature Granulocytes # (auto) 0.17 K/uL (0.01-0.20); Immature Granulocytes % (auto) 1.5 %; Lymphocytes # (auto) 2.88 K/uL (1.20-3.40); Lymphocytes % (auto) 25.9 %; Mean Corpuscular Hemoglobin 31.3 pg (25.0-34.0); Mean Corpuscular Hgb Conc 34.4 g/dL (32.0-36.0); Mean Corpuscular Volume 90.9 fL (80.0-100.0); Mean Platelet Volume 11.5 fL (9.4-12.4); Monocytes # (auto) 0.58 K/uL (0.11-0.59); Monocytes % (auto) 5.2 %; Neutrophils # (auto) 7.26 K/uL (1.40-6.50); Neutrophils % (auto) 65.5 %; Platelet Count 151 K/uL (130-400); RDW Coefficient of Variation 13.9 % (11.5-14.5); RDW Standard Deviation 46.4 fL (36.4-46.3); Red Blood Count 4.96 M/uL (4.20-5.40)
[2022-12-30 14:15] LABS: Albumin Globulin Ratio 1.5 (0.9-2); Albumin Level 4.3 gm/dl (3.4-5.0); BUN Creatinine Ratio 14.5 (10-20); Bilirubin,Total 1.3 mg/dl (0.2-1.0); Calcium 9.7 mg/dl (8.6-10.3); Creatinine Clr Calc Pharmacy 61.3 ml/min; Est GFR (African American) 58.5 ml/min; Est GFR (Non-African American) 50.5 ml/min; Globulin 2.8 gm/dl (2.5-4.0); Magnesium 1.4 mg/dl (1.7-2.4); Total Protein 7.1 gm/dl (6.0-8.3)
[2022-12-30] MEDS ORDERED: MAGNESIUM SULFATE / D5W 1 GM/100 ML BAG IV STA (14:19)
[2022-12-30] MEDS ORDERED: NovoLIN-R INSULIN PER UNIT CHARGE IV STA (14:19)
[2022-12-30 14:23] LABS: Troponin I High Sensitivity 52.2 pg/ml (0-14)
[2022-12-30 14:47] LABS: Adenovirus PCR Not Detected (NotDetected); Bordetella parapertussis PCR Not Detected (NotDetected); Bordetella pertussis PCR Not Detected (NotDetected); Chlamydia pneumoniae PCR Not Detected (NotDetected); Coronavirus 229E PCR Not Detected (NotDetected); Coronavirus CoV-2 (COVID19)PCR Not Detected (NotDetected); Coronavirus HKU1 PCR Not Detected (NotDetected); Coronavirus NL63 PCR Not Detected (NotDetected); Coronavirus OC43PCR Not Detected (NotDetected); Human Metapneumovirus PCR Not Detected (NotDetected); Influenza A PCR Not Detected (NotDetected); Influenza B PCR Not Detected (NotDetected); Mycoplasma pneumoniae PCR Not Detected (NotDetected); Parainfluenza Virus 1 PCR Not Detected (NotDetected); Parainfluenza Virus 2 PCR Not Detected (NotDetected); Parainfluenza Virus 3 PCR Not Detected (NotDetected); Parainfluenza Virus 4 PCR Not Detected (NotDetected); Respiratory Syncytial VirusPCR Not Detected (NotDetected); Rhinovirus/Enterovirus PCR Not Detected (NotDetected)
[2022-12-30] MEDS ORDERED: LACTATED RINGER'S 1,000 ML IV ONE ×2 (15:14→15:59)
[2022-12-30] MEDS ORDERED: Heparin IV Adult Wt-Based Standard WITH Bolus Protocol IV STA (15:32)
--- NOTE | 2022-12-30 15:33 | CT Scan Report ---
CT angio chest PE protocol CLINICAL HISTORY: PE TECHNIQUE: Multidetector row helical CT of the chest was performed with angiographic protocol. Marquez l and sagittal reformations were obtained. Coronal and sagittal MIPS were obtained from the axial krishna a set and were submitted for review. Automated dose lowering techniques and/or adjustment according to patient size were utilized for this exam. CT DOSE: 952.66 mGy.cm Comparison: Comparison is made to CT abdomen pelvis 10/27/2019 FINDINGS: Lungs and pleura: Normal. Heart and pericardium: There is enlargement of the right ventricle compatible with right heart strain . Vessels: Saddle emboli are seen with multiple lobar and segmental branches. Mediastinum and bernarda: Unremarkable. Chest wall and lower neck: Unremarkable. Abdomen: Unremarkable. Bones: Unremarkable. IMPRESSION: Extensive pulmonary emboli are seen with evidence of right heart strain. ACT 112: Negative or not required by law. Electronically signed by: Sean Desouza M.D. 12/30/2022 3:32 PM
[2022-12-30] MEDS ORDERED: HEPARIN SOD (PORCINE) 1000 UNIT/ML IV ONE ×2 (15:47→16:00)
[2022-12-30] MEDS ORDERED: GLUCAGON FOR INJ 1 MG VIAL SQ PRN (16:09)
[2022-12-30] MEDS ORDERED: GLUCOSE 40% GEL 15 GM TUBE PO PRN (16:09)
[2022-12-30] MEDS ORDERED: CARBOHYDRATES FOR HYPOGLYCEMIA PO PRN (16:09)
[2022-12-30] MEDS ORDERED: GLUCOSE 10 TAB/TUBE PO PRN (16:09)
[2022-12-30] MEDS ORDERED: DEXTROSE 50% 50 ML SYRINGE IV PRN (16:09)
[2022-12-30] MEDS ORDERED: STAT IV Infusion **Titration per Protocol STA (16:09)
[2022-12-30] MEDS: HEPARIN SODIUM/DEXTROSE 25,000 UNITS/500 ML BAG IV SCH (16:10)
[2022-12-30] MEDS ORDERED: DKA GOAL RANGE 150-250 mg/dl ONE ×2 (16:26→18:38)
--- NOTE | 2022-12-30 16:30 | History & Physical Report ---
Date of Service December 30, 2022 Assessment & Plan (1) Saddle pulmonary embolus: Plan: TTE, Serial troponins q6h overnight ER provider discussed with [facility] and recommended IV heparin alone currently Admit to ICU (2) High anion gap metabolic acidosis: Plan: Anion gap suspect mixed ketones and lactic acidosis from poor oxygenation with pulmonary embolism. Elevation in anion gap once lactate taken into account for normal level 3.8. Awaiting UA to assess for ketones Irregardless will treat for DKA with insulin drip to help better glucose control but she does not require significant IV fluids in the setting of saddle pulmonary embolism and IVC dilatation with reduced inspiratory collapse. (3) DKA (diabetic ketoacidosis): Plan: Insulin IV drip with aim 150-250 Half NSS + KCl 20 meq @ 125ml/hr, switch to add D5 once glucose within aim 150- 250 (4) Hypomagnesemia: Plan: Mg level 1.4. Mg sulfate 1g IV given in ER. Will await repeat level for ongoing replacement per ICU protocol (5) Hypertension: Plan: Holding lisinopril and metoprolol in setting of saddle pulmonary embolism Likely can restart metoprolol tomorrow as long as hemodynamically stable overnight (6) Hyperlipidemia: Plan: Continue atorvastatin (7) Hypothyroidism: Plan: TSH 0.963 in September Continue levothyroxine (8) Diabetes mellitus, type 2: Plan: HBA1C 9.3 in September, repeat with AM labs Stop all home medications Insulin IV drip as above Plan VTE Prophylaxis - IV heparin bolus and drip Diet - NPO Disposition - admit to ICU Admission and Anticipated Discharge Date Admission Date: December 30, 2022 History of Present Illness Chief Complaint: Shortness of breath Primary Care Provider: ALIA Jha Zeny Hernández is a 72 year old female who presents to the ER with shortness of breath. 1.5 weeks of shortness of breath on exertion but would recover quickly - she just felt like she was out of shape. This morning sudden onset shortness of breath which she did not recover from around 10am. No chest pain. Called 911 around 11am and was transported to the Emergency Room. No claudication, orthopnea, palpitations, presyncope. No leg/calf pain or swelling. She notes right sided sciatica since May which improved with steroid injection. Left hip pain started in August associated with physical therapy she was having for her right sided sciatica; she notes a total hip arthroplasty performed in 2008. No long haul flights or journeys. No surgeries in the last 6 months. No prior DVT or pulmonary embolism. No hormone replacement therapy. No previous or current cancers known but is not up to date with cancer screenings. Only took thyroid medications this morning. She did not take her usual metoprolol succinate. Allergies Allergy/AdvReac Type Severity Reaction Status Date / Time No Known Allergies Allergy Mild 0 Verified 12/30/22 15:46 Home Medications Medication Instructions Recorded Confirmed Type cholecalciferol (vitamin D3) 25 1,000 unit PO QAM 08/13/18 12/30/22 History mcg (1,000 unit) capsule (Vitamin D3) cinnamon bark 500 mg capsule 500 mg PO QAM 08/13/18 12/30/22 History (Cinnamon) omega 2-uoa-kpb-fish oil 1,000 mg 1 cap PO QAM 08/13/18 12/30/22 History (120 mg-180 mg) capsule (Fish Oil) fexofenadine 60 mg tablet (Hayley 60 mg PO QPM 03/29/19 12/30/22 History Allergy) atorvastatin 40 mg tablet 40 mg PO PM #90 tabs 11/25/21 12/30/22 Rx meloxicam 15 mg tablet 15 mg PO QAM #30 tabs 12/16/21 12/30/22 Rx cyclobenzaprine 5 mg tablet 5 mg PO TID PRN sciatica #60 tabs 05/01/22 12/30/22 Rx magnesium oxide 400 mg PO QAM 05/15/22 12/30/22 History metoprolol succinate 200 mg 200 mg PO QAM 05/15/22 12/30/22 History tablet,extended release 24 hr (Toprol XL) levothyroxine 150 mcg tablet 150 mcg PO QAM #90 tabs 06/02/22 12/30/22 Rx glimepiride 4 mg tablet 4 mg PO QAM #90 tabs 09/23/22 12/30/22 Rx lisinopril 40 mg tablet 40 mg PO QAM #90 tabs 09/23/22 12/30/22 Rx metformin 500 mg tablet,extended 1,000 mg PO BID #360 tabs 09/23/22 12/30/22 Rx release 24 hr dulaglutide 1.5 mg/0.5 mL 1.5 mg (0.5 mL) subcut WK #2 mL 10/20/22 12/30/22 Rx subcutaneous pen injector (Trulicity) acetaminophen 300 mg-codeine 30 mg 1 - 2 tab PO .Q4-6HRS PRN pain 12/30/22 12/30/22 History tablet amoxicillin 500 mg capsule 2,000 mg PO DIRECTED PRN PRIOR 12/30/22 12/30/22 History TO DENTAL WORK. xiufiigu-pvi-zrnafa 5 mg-zeaxanth 1 cap PO DAILY 12/30/22 12/30/22 History 1 mg-bilberry 7.5 mg-herbal capsule ([employer] Formula) Past Med/Surg History Medical History (Updated 12/30/22 @ 19:14 by Keo Marie MD) Chronic back pain TO RIGHT LEG Degenerative disc disease Diabetes mellitus, type 2 Hyperlipidemia Hypertension Hypothyroidism Osteoarthritis Sciatica Sinus tachycardia added magnesium to medication regimen by cardiology at [facility] SOB (shortness of breath) on exertion OVERWEIGHT Surgical History H/O dilation and curettage History of colonoscopy History of tooth extraction WISDOM TEETH History of total hip arthroplasty LEFT, 10/2008 S/P epidural steroid injection S/P left knee arthroscopy Family History Mother Family history of diabetes mellitus Hypertension Kidney disease Father Family history of diabetes mellitus Diabetes Coronary heart disease Hypertension Arthritis Heart disease Family/Other Family hx of colon cancer Brother Alcohol abuse Other Colorectal cancer Denies family history of Ovarian cancer Prostate cancer Osteoporosis Myocardial infarction Breast cancer Social History Smoking Status: Former smoker Age Started Using Tobacco: 19; Age Quit Using Tobacco: 53; packs per day: 2; Cigarettes Per Day: 40; Second Hand Exposure: No; Do You Dip or Chew Tobacco: No; Hx Alcohol Use: No Hx Substance Use: No Preferred Language: Urdu Communication Ability: Effective Hearing Ability: Normal Floor Manager Required: No Beliefs That Will Affect Care: None marital status: Single Current Living Situation: Alone current occupational status: retired Feels Safe at Home: Yes Dental Care, Regularly: Yes Physical Activity Frequency: 1-2 Times per Week Seatbelt Use: always Sunscreen Use: No Assistive Devices: Cane, Glasses and Walker Review of Systems Review of Systems: All systems reviewed & are unremarkable except as noted in HPI & below Physical Exam Constitutional: WD/WN, vitals as above Eyes: PERRL, conjunctivae normal, anicteric sclerae ENMT: external ear and nose normal, oropharynx normal Neck: trachea midline, no thyromegaly Respiratory: normal respiratory effort, lungs clear to auscultation Cardiovascular: Rate/Rhythm: regular rhythm and + tachycardic Heart Sounds: no murmur Extremities: normal capillary refill and + pedal edema (trace b/l equal); no calf tenderness Left calf 1cm circumference larger than right Gastrointestinal (Abdomen): normal bowel sounds, soft, nontender, no hepatosplenomegaly Musculoskeletal: no cyanosis or clubbing, extremities motor strength 5/5 Skin: no rashes, warm and dry Neurologic: moves all extremities and awake; not confused Psychiatric: A+Ox3, euthymic affect Results & Data Results & Data Vital Signs (Past 12 Hours) Vital Signs Temp Pulse Resp BP Pulse Ox O2 Del Method O2 Flow Rate 12/30/22 16:00 127 H 19 109/81 97 Nasal Cannula 2 12/30/22 15:40 131 H 30 H 98 Nasal Cannula 2 12/30/22 15:30 127 H 26 H 127/102 H 95 Nasal Cannula 2 12/30/22 15:20 132 H 27 H 93 Room Air 12/30/22 15:00 129 H 22 107/77 93 Room Air 12/30/22 14:30 133 H 25 H 116/79 92 Room Air 12/30/22 14:20 131 H 20 94/68 L 90 Room Air 12/30/22 13:40 140 H 21 93 Room Air 12/30/22 13:00 139 H 22 102/78 97 Nasal Cannula 4 12/30/22 13:06 140 H 12/30/22 12:58 36.4 C L 141 H 26 H 138/85 95 Nasal Cannula 4 Laboratory Results Abnormal lab results 12/30/22 12/30/22 12/30/22 Range/Units 12:55 13:00 13:00 WBC 11.10 H (4.8-10.8) K/ul RDW Std Deviation 46.4 H (36.4-46.3) fL Neut # (Auto) 7.26 H (1.40-6.50) K/uL VBG pH (7.36-7.41) Carbon Dioxide 18 L (21-32) mmol/L Anion Gap 19 H (3-11) Glucose 453 H* (70-99(Fasting)) mg/dl POC Glucose 373 H* (70-99) mg/dl Lactate (0.4-2.0) mmol/L Magnesium 1.4 L (1.7-2.4) mg/dl Total Bilirubin 1.3 H (0.2-1.0) mg/dl Troponin I High Sens 52.2 H* (0-14) pg/ml 12/30/22 12/30/22 Range/Units 13:12 15:48 WBC (4.8-10.8) K/ul RDW Std Deviation (36.4-46.3) fL Neut # (Auto) (1.40-6.50) K/uL VBG pH 7.20 L (7.36-7.41) Carbon Dioxide (21-32) mmol/L Anion Gap (3-11) Glucose (70-99(Fasting)) mg/dl POC Glucose (70-99) mg/dl Lactate 6.2 H* (0.4-2.0) mmol/L Magnesium (1.7-2.4) mg/dl Total Bilirubin (0.2-1.0) mg/dl Troponin I High Sens (0-14) pg/ml Diagnostic Findings XR chest 1V portable CLINICAL HISTORY: Dyspnea. COMPARISON STUDY: Chest radiograph and chest CT October 27, 2019. FINDINGS: Lung volumes are normal. Lungs are clear. There is no pneumothorax or pleural effusion. Cardiac size is normal. Mediastinal contours are normal. There is no evidence for pulmonary edema. IMPRESSION: No acute cardiopulmonary findings. CT angio chest PE protocol CLINICAL HISTORY: PE TECHNIQUE: Multidetector row helical CT of the chest was performed with angiographic protocol. Coronal and sagittal reformations were obtained. Coronal and sagittal MIPS were obtained from the axial data set and were submitted for review. Automated dose lowering techniques and/or adjustment according to patient size were utilized for this exam. CT DOSE: 952.66 mGy.cm Comparison: Comparison is made to CT abdomen pelvis 10/27/2019 FINDINGS: Lungs and pleura: Normal. Heart and pericardium: There is enlargement of the right ventricle compatible with right heart strain. Vessels: Saddle emboli are seen with multiple lobar and segmental branches. Mediastinum and bernarda: Unremarkable. Chest wall and lower neck: Unremarkable. Abdomen: Unremarkable. Bones: Unremarkable. IMPRESSION: Extensive pulmonary emboli are seen with evidence of right heart strain. Medications Administered ER Medications Given: Magnesium sulfate 1g IV Insulin 10 units IV Lactated Ringer's 1L bolus Heparin standard IV bolus and drip ECG Rate (beats per minute): 137 Rhythm: sinus tachycardia Findings: + other (non specific intraventricular conduction delay) and + T-wave inversion (Inferior) Comparison ECG Date: from (October 27, 2019) Change: the following changes noted (TW inversion is new) Code Status & VTE Plan Code Status Full VTE Prophylaxis Plan VTE Prophylaxis will be ordered: Yes Critical Care Time Critical Care Time: Yes Total Critical Care Time: 35 PG Care Time/CCT Total # of Minutes Spent Total Time Spent with Patient: Total time spent is greater than 50% in coordination of care (as documented) at patient's floor/unit and/or counseling patient: Critical Care Time: Yes Total Critical Care Time: 35 Coding Level of Care Code 99009 INT INP/OBS CARE 3/75MIN Diagnoses Saddle pulmonary embolus I26.92 High anion gap metabolic acidosis E87.29 DKA (diabetic ketoacidosis) E11.10 Hypomagnesemia E83.42 Hypertension I10 Hyperlipidemia E78.5 Hypothyroidism E03.9 Diabetes mellitus, type 2 E11.9 Additional Codes Critical Care Time - Critical Care Time: Yes ([id number])
[2022-12-30 16:44] LABS: Partial Thromboplastin Ratio 0.9; Partial Thromboplastin Time 26.1 Seconds (21.0-31.0)
[2022-12-30] MEDS: INSULIN REGULAR 250 UNITS in SODIUM CHLORIDE 0.9% 247.5 ML IV SCH (16:47)
[2022-12-30] MEDS ORDERED: SODIUM CHLOR 0.45% + 20MEQ KCL 20 MEQ/1,000 ML BAG IV SCH (18:00)
--- NOTE | 2022-12-30 18:04 | XCELERA ---
[id number] \\[id number]
[2022-12-30] MEDS ORDERED: PHARMACY GLYCEMIC MGMT CONSULT PRN (18:38)
[2022-12-30] MEDS ORDERED: ICU Protocol for HYPERglycemia SCH (18:38)
[2022-12-30] MEDS: INSULIN ASPART PER UNIT CHARGE SC SCH ×2 (18:43→21:04)
[2022-12-30] MEDS: Heparin IV Adult Wt-Based Standard WITH Bolus Protocol IV SCH ×2 (18:52→18:54)
[2022-12-30] MEDS ORDERED: PLASMA-LYTE A 1,000 ML IV SCH (19:00)
--- NOTE | 2022-12-30 19:02 | Critical Care Consultation ---
Date of Consultation December 30, 2022 Assessment & Plan (1) Saddle pulmonary embolus: (2) Trigger finger, right ring finger: (3) Lumbar radiculopathy: (4) Gilbert's syndrome: (5) Hypertension: (6) Chronic back pain: (7) Degenerative disc disease: (8) Sinus tachycardia: (9) DKA (diabetic ketoacidosis): Plan Assessment/plan: 1. Saddle Embolus with RV strain -ECHO -LE Doppler US -Heparin gtt -CTA of Chest 2. DKA -insulin gtt -follow DKA orderset 3. Sinus Tachycardia -Due to PE -Due to DKA 4. Lumbar Radiculopathy -recieves PT at home -uses rollator 5. Gilbert's Syndrome 6. Chronic Back Pain -continue home medications CRITICAL CARE TIME - I have personally spent 48 minutes of critical care time in the direct management of this patient. This is a life/limb threatening event. This includes time spent evaluating patient, direct bedside care, chart review, placing orders, interpretation of diagnostic studies, discussion with consultants, patient, and family members, as well as other required patient management ac tivities. This time is exclusive of all separately billable procedures, and teaching time and separate from and in addition to any other critical care service time. History of Present Illness Reason for Consultation: Abnormal chest CT scan showing saddle embolus Requesting Physician: Keo Marie MD Attending Physician: Keo Marie MD History of Present Illness Ms. nix is a 72-year-old woman who explains to me that she has been short of breath "on and off" for the past 1 to 2 weeks but noticed earlier today that as she was getting out of bed using her left chair she became extremely short of breath without being able to recover her breathing therefore she called 911. Came to [facility] ER where CTA of the chest was performed showing a large saddle thromboembolic process. Although patient was comfortable with oxygen saturation of 97% on 2 L nasal cannula she is quite tachycardic now 135 heart rate. Provided a bolus and started on IV heparin patient states currently at this time she feels her breathing is much better and is not experiencing any chest pain at this time. Patient has very severe sciatica to the left side and uses a rollator to ambulate due to degenerative disc disease. She is also felt that she has had increased lower extremity edema over this 1 to [address] of the chest did show right ventricular strain. Allergies Allergy/AdvReac Type Severity Reaction Status Date / Time No Known Allergies Allergy Mild 0 Verified 12/30/22 15:46 Home Medications Medication Instructions Recorded Confirmed Type cholecalciferol (vitamin D3) 25 1,000 unit PO QAM 08/13/18 12/30/22 History mcg (1,000 unit) capsule (Vitamin D3) cinnamon bark 500 mg capsule 500 mg PO QAM 08/13/18 12/30/22 History (Cinnamon) omega 6-tqm-skc-fish oil 1,000 mg 1 cap PO QAM 08/13/18 12/30/22 History (120 mg-180 mg) capsule (Fish Oil) fexofenadine 60 mg tablet (Hayley 60 mg PO QPM 03/29/19 12/30/22 History Allergy) atorvastatin 40 mg tablet 40 mg PO PM #90 tabs 11/25/21 12/30/22 Rx meloxicam 15 mg tablet 15 mg PO QAM #30 tabs 12/16/21 12/30/22 Rx cyclobenzaprine 5 mg tablet 5 mg PO TID PRN sciatica #60 tabs 05/01/22 12/30/22 Rx magnesium oxide 400 mg PO QAM 05/15/22 12/30/22 History metoprolol succinate 200 mg 200 mg PO QAM 05/15/22 12/30/22 History tablet,extended release 24 hr (Toprol XL) levothyroxine 150 mcg tablet 150 mcg PO QAM #90 tabs 06/02/22 12/30/22 Rx glimepiride 4 mg tablet 4 mg PO QAM #90 tabs 09/23/22 12/30/22 Rx lisinopril 40 mg tablet 40 mg PO QAM #90 tabs 09/23/22 12/30/22 Rx metformin 500 mg tablet,extended 1,000 mg PO BID #360 tabs 09/23/22 12/30/22 Rx release 24 hr dulaglutide 1.5 mg/0.5 mL 1.5 mg (0.5 mL) subcut WK #2 mL 10/20/22 12/30/22 Rx subcutaneous pen injector (Trulicity) acetaminophen 300 mg-codeine 30 mg 1 - 2 tab PO .Q4-6HRS PRN pain 12/30/22 12/30/22 History tablet amoxicillin 500 mg capsule 2,000 mg PO DIRECTED PRN PRIOR 12/30/22 12/30/22 History TO DENTAL WORK. rdyvddzk-cxw-gchvec 5 mg-zeaxanth 1 cap PO DAILY 12/30/22 12/30/22 History 1 mg-bilberry 7.5 mg-herbal capsule ([employer] Health Formula) Patient History Medical History (Updated 12/30/22 @ 19:14 by Keo Marie MD) Chronic back pain TO RIGHT LEG Degenerative disc disease Diabetes mellitus, type 2 Hyperlipidemia Hypertension Hypothyroidism Osteoarthritis Sciatica Sinus tachycardia added magnesium to medication regimen by cardiology at [facility] SOB (shortness of breath) on exertion OVERWEIGHT Surgical History H/O dilation and curettage History of colonoscopy History of tooth extraction WISDOM TEETH History of total hip arthroplasty LEFT, 10/2008 S/P epidural steroid injection S/P left knee arthroscopy Family History Mother Family history of diabetes mellitus Hypertension Kidney disease Father Family history of diabetes mellitus Diabetes Coronary heart disease Hypertension Arthritis Heart disease Family/Other Family hx of colon cancer Brother Alcohol abuse Other Colorectal cancer Denies family history of Ovarian cancer Prostate cancer Osteoporosis Myocardial infarction Breast cancer Social History Smoking Status: Former smoker Age Started Using Tobacco: 19; Age Quit Using Tobacco: 53; packs per day: 2; Cigarettes Per Day: 40; Second Hand Exposure: No; Do You Dip or Chew Tobacco: No; Hx Alcohol Use: No Hx Substance Use: No Preferred Language: Croatian Communication Ability: Effective Hearing Ability: Normal Materials Assistant Required: No Beliefs That Will Affect Care: None marital status: Single Current Living Situation: Alone current occupational status: retired Feels Safe at Home: Yes Dental Care, Regularly: Yes Physical Activity Frequency: 1-2 Times per Week Seatbelt Use: always Sunscreen Use: No Assistive Devices: Cane, Glasses and Walker Review of Systems Review of Systems: All systems reviewed & are unremarkable except as noted in Subjective Physical Exam Constitutional: Sinus tachycardia but other vital signs are stable. Patient is resting comfortably on 2 L nasal cannula Eyes: PERRL, conjunctivae normal, anicteric sclerae ENMT: external ear and nose normal, oropharynx normal Neck: trachea midline, no thyromegaly Respiratory: normal respiratory effort, lungs clear to auscultation Cardiovascular: Sinus tachycardia per telemetry. S1 and S2 within normal limits. No rubs gallops or clicks. Gastrointestinal (Abdomen): normal bowel sounds, soft, nontender, no hepatosplenomegaly Musculoskeletal: Bony deformities to hands knees and feet consistent with arthritis. Patient does have peripheral nonpitting edema to lower extremities appears as though her left lower extremity is larger than the right. Skin: no rashes, warm and dry Neurologic: patellar DTR's 2+ bilat, sensation intact and PERRL, EOMI, accommodation nl, no face palsy, no dysarthria Psychiatric: A+Ox3, euthymic affect Results & Data Results & Data Vital Signs (Past 12 Hours) Vital Signs Temp Pulse Resp BP Pulse Ox O2 Del Method O2 Flow Rate 12/30/22 18:00 127 H 25 H 149/106 H 96 Nasal Cannula 2 12/30/22 17:30 126 H 26 H 137/102 H 96 Nasal Cannula 2 12/30/22 17:00 129 H 18 152/111 H 96 Nasal Cannula 2 12/30/22 16:00 127 H 19 109/81 97 Nasal Cannula 2 12/30/22 15:40 131 H 30 H 98 Nasal Cannula 2 12/30/22 15:30 127 H 26 H 127/102 H 95 Nasal Cannula 2 12/30/22 15:20 132 H 27 H 93 Room Air 12/30/22 15:00 129 H 22 107/77 93 Room Air 12/30/22 14:30 133 H 25 H 116/79 92 Room Air 12/30/22 14:20 131 H 20 94/68 L 90 Room Air 12/30/22 13:40 140 H 21 93 Room Air 12/30/22 13:00 139 H 22 102/78 97 Nasal Cannula 4 12/30/22 13:06 140 H 12/30/22 12:58 36.4 C L 141 H 26 H 138/85 95 Nasal Cannula 4 Chemistry Results CMP Results: Na 135 mmol/L (136-145) L 12/31/22 K 4.2 mmol/L (3.5-5.1) 12/31/22 Cl 102 mmol/L (98-107) 12/31/22 CO2 22 mmol/L (21-32) 12/31/22 Anion Gap 11 (3-11) 12/31/22 BUN 16 mg/dl (6-23) 12/31/22 Creatinine 0.76 mg/dl (0.6-1.2) 12/31/22 Estimated GFR ( Amer) 91.5 ml/min 12/31/22 Estimated GFR (Non-Af Amer) 78.9 ml/min 12/31/22 BUN/Creatinine Ratio 21.1 (10-20) H 12/31/22 Glu 201 mg/dl (70-99(Fasting)) H 12/31/22 Ca 9.3 mg/dl (8.6-10.3) 12/31/22 Phosphorus Level 2.8 mg/dl (2.5-4.9) 12/31/22 Total Bilirubin 1.5 mg/dl (0.2-1.0) H 12/31/22 AST 20 U/L (13-39) 12/31/22 ALT 22 U/L (7-52) 12/31/22 Alkaline Phosphatase 72 U/L (34-104) 12/31/22 TP 6.7 gm/dl (6.0-8.3) 12/31/22 Albumin 4.0 gm/dl (3.4-5.0) 12/31/22 Globulin 2.7 gm/dl (2.5-4.0) 12/31/22 Albumin/Globulin Ratio 1.5 (0.9-2) 12/31/22 COVID-19 Results Results COVID-19 Adm Lab Results: RBC 4.62 M/uL (4.20-5.40) 12/31/22 WBC 11.53 K/ul (4.8-10.8) H 12/31/22 Hgb 14.3 g/dl (12.0-16.0) 12/31/22 Hct 41.2 % (37.0-47.0) 12/31/22 Plt Count 122 K/uL (130-400) L 12/31/22 Neutrophils (%) (Auto) 71.5 % 12/31/22 Lymphocytes (%) (Auto) 19.0 % 12/31/22 Monocytes # (Auto) 0.91 K/uL (0.11-0.59) H 12/31/22 Eosinophils # (Auto) 0.04 K/uL (0.00-0.50) 12/31/22 Immature Granulocyte % (Auto) 0.8 % 12/31/22 Neutrophils # (Auto) 8.24 K/uL (1.40-6.50) H 12/31/22 Lymphocytes # (Auto) 2.19 K/uL (1.20-3.40) 12/31/22 Monocytes # (Auto) 0.91 K/uL (0.11-0.59) H 12/31/22 Eosinophils # (Auto) 0.04 K/uL (0.00-0.50) 12/31/22 Basophils # (Auto) 0.06 K/uL (0.00-0.20) 12/31/22 Immature Granulocyte # (Auto) 0.09 K/uL (0.01-0.20) 3 Na 135 mmol/L (136-145) L 12/31/22 K 4.2 mmol/L (3.5-5.1) 12/31/22 Cl 102 mmol/L (98-107) 12/31/22 CO2 22 mmol/L (21-32) 12/31/22 Anion Gap 11 (3-11) 12/31/22 BUN 16 mg/dl (6-23) 12/31/22 Creatinine 0.76 mg/dl (0.6-1.2) 12/31/22 BUN/Creatinine Ratio 21.1 (10-20) H 12/31/22 Glucose Level 201 mg/dl (70-99(Fasting)) H 12/31/22 Ca 9.3 mg/dl (8.6-10.3) 12/31/22 Phosphorus Level 2.8 mg/dl (2.5-4.9) 12/31/22 Total Bilirubin 1.5 mg/dl (0.2-1.0) H 12/31/22 AST/SGOT 20 U/L (13-39) 12/31/22 ALT/SGPT 22 U/L (7-52) 12/31/22 Alkaline Phosphatase 72 U/L (34-104) 12/31/22 Total Protein 6.7 gm/dl (6.0-8.3) 12/31/22 Albumin 4.0 gm/dl (3.4-5.0) 12/31/22 Globulin 2.7 gm/dl (2.5-4.0) 12/31/22 Albumin/Globulin Ratio 1.5 (0.9-2) 12/31/22 PTT 55.7 Seconds (21.0-31.0) H* 12/31/22 INR 1.1 (0.9-1.1) 12/30/22 Adenovirus (PCR) Not Detected (NotDetected) 12/30/22 B. parapertussis DNA (PCR) Not Detected (NotDetected) 12/03 01/24 B. pertussis DNA (PCR) Not Detected (NotDetected) 12/30/22 C. pneumoniae DNA (PCR) Not Detected (NotDetected) 3 Coronavirus Type OC43 (PCR) Not Detected (NotDetected) Coronavirus Type HKU1 (PCR) Not Detected (NotDetected) Coronavirus Type 229E (PCR) Not Detected (NotDetected) COVID-19 PCR Not Detected (NotDetected) 12/30/22 Coronavirus Type NL63 (PCR) Not Detected (NotDetected) Human Metapneumovirus (PCR) Not Detected (NotDetected) Influenza Virus Type A (PCR) Not Detected (NotDetected) Influenza Virus Type B (PCR) Not Detected (NotDetected) M. pneumoniae (PCR) Not Detected (NotDetected) 12/30/22 Parainfluenza Type 1 (PCR) Not Detected (NotDetected) 12/03 01/24 Parainfluenza Type 2 (PCR) Not Detected (NotDetected) 12/03 01/24 Parainfluenza Type 3 (PCR) Not Detected (NotDetected) 12/03 01/24 Parainfluenza Type 4 (PCR) Not Detected (NotDetected) 12/03 01/24 RSV (PCR) Not Detected (NotDetected) 12/30/22 Enterovirus/Rhinovirus (PCR) Not Detected (NotDetected) Chest X-Ray 12/30/22 CT Results: abnormal Results & Data ([facility]) Diagnostic Findings CTA of the chest did reveal saddle emboli seen in multiple lobar and segmental branches. Appears as though patient's right mainstem artery possessing a large embolic thrombus Transthoracic echocardiography also performed however results not back yet. Medications Administered Heparin Sodium/Dextrose (Heparin Sodium/Dextrose) 25,000 units in 500 mls @ 30 mls/hr IV .[id number] [facility]; Protocol Stop: 01/29/23 15:59 Last Titration: 12/30/22 18:42 Dose: 1,500 units/hr, 30 mls/hr Documented By: KAMI Co-signed By: MÓNICA Admin: 12/30/22 16:10 Dose: 1,500 units/hr, 30 mls/hr Documented By: BETH Co-signed By: BRENT Insulin Human Regular 250 (units/ Sodium Chloride) 250 mls @ 10 mls/hr IV .Q24H [facility]; Protocol Stop: 01/29/23 16:14 Last Titration: 12/30/22 18:35 Dose: 6 units/hr, 6 mls/hr Documented By: KAMI Co-signed By: MÓNICA Titration: 12/30/22 17:52 Dose: 0 units/hr, 0 mls/hr Documented By: BETH Co-signed By: DALILA Admin: 12/30/22 16:47 Dose: 10 units/hr, 10 mls/hr Documented By: BETH Co-signed By: KEYONA Insulin Aspart (Insulin Aspart Per Unit Charge) 0 units SC ACHS [facility] Stop: 01/29/23 16:29 Last Admin: 12/30/22 18:43 Dose: Not Given Documented By: KAMI Coding Level of Care Code 35985 CRITICAL CARE 1ST 30-74M Diagnoses Saddle pulmonary embolus I26.92 Trigger finger, right ring finger M65.341 Lumbar radiculopathy M54.16 Gilbert's syndrome E80.4 Hypertension I10 Chronic back pain M54.9; G89.29 Degenerative disc disease Sinus tachycardia R00.0 DKA (diabetic ketoacidosis) E11.10
[2022-12-30 19:19] LABS: Appearance Urine Clear (Clear); Bacteria Urine Automated Negative (Negative); Bilirubin Urine Negative (Negative); Blood Urine 1+ (Negative); Color Urine Yellow; Epithelial Cell Urine Auto >30 /lpf (0-5); Glucose Urine UA 1+ (Negative); Ketones Urine Trace (Negative); Leukocyte Esterase Urine Negative (Negative); Nitrite Urine Negative (Negative); Protein Urine 1+ (Negative); Specific Gravity Urine > 1.045 (1.000-1.030); Urobilinogen Urine Negative (Negative); pH Urine 5.5 (4.5-7.5)
[2022-12-30] MEDS: D5W AND 1/2NSS + 20MEQ KCL 20 MEQ/1,000 ML BAG IV SCH (19:21)
[2022-12-30] MEDS: PENDING 1/2NSS+20mEq KCL IVF SCH ×2 (19:40→21:01)
[2022-12-30 19:46] LABS: BUN Creatinine Ratio 19.5 (10-20); Calcium 9.7 mg/dl (8.6-10.3); Creatinine Clr Calc Pharmacy 75.4 ml/min; Est GFR (African American) 77.7 ml/min; Magnesium 1.5 mg/dl (1.7-2.4); Phosphorus 2.6 mg/dl (2.5-4.9)
[2022-12-30] MEDS: PENDING D5 1/2NS+20mEq KCL IVF SCH ×2 (19:46→21:01)
[2022-12-30] MEDS: MAGNESIUM SULFATE / D5W 1 GM/100 ML BAG IV SCH ×2 (21:01→23:29)
[2022-12-30] MEDS: FEXOFENADINE 60 MG TAB PO SCH (21:04)
[2022-12-30] MEDS: ATORVASTATIN 40 MG TAB PO SCH (21:04)
--- NOTE | 2022-12-30 21:32 | Ultrasound Report ---
Exam(s): US VENOUS BILATERAL LOWER EXTREMITIES EXAM: US Duplex Bilateral Lower Extremities Veins CLINICAL HISTORY: saddle pulmonary embolism ?DVT. TECHNIQUE: Real-time duplex ultrasound scan of the bilateral lower extremity veins integrating B-mode two-dimensional vascular structure, Doppler spectral analysis, color flow Doppler imaging and compression. COMPARISON: No relevant prior studies available. FINDINGS: Right deep veins: Unremarkable. No DVT in the right common femoral, femoral, proximal deep femoral or popliteal veins. The veins demonstrate normal color flow, are normally compressible, with normal phasic flow and/or augmentation response. The interrogated calf veins are patent. Right superficial veins: Unremarkable. No thrombus in the saphenofemoral junction. Left deep veins: There is occlusive thrombus noted in the left popliteal vein with distal extension to the posterior tibial veins. The left common femoral and superficial femoral veins are compressible and demonstrate normal color flow. Left superficial veins: No thrombus in the saphenofemoral junction. Soft tissues: No acute findings. No popliteal cyst. IMPRESSION: 1. There is occlusive thrombus noted in the left popliteal vein with distal extension to the posterior tibial veins. No retrograde/central extension to involve the left superficial femoral or femoral vein is identified. 2. No evidence for deep vein thrombosis involving the right lower extremity. Electronically signed by: Lorenzo Perry MD 12/30/22 21:31 PM
[2022-12-30 23:06] LABS: BUN Creatinine Ratio 19.5 (10-20); Calcium 9.7 mg/dl (8.6-10.3); Est GFR (African American) 83.4 ml/min; Magnesium 1.9 mg/dl (1.7-2.4); Phosphorus 2.3 mg/dl (2.5-4.9); Potassium 3.9 mmol/L (3.5-5.1)
[2022-12-30 23:43] LABS: Partial Thromboplastin Ratio 2.2
[2022-12-30 23:49] LABS: Partial Thromboplastin Time 60.9 Seconds (21.0-31.0)
[2022-12-30] MEDS: ACETAMINOPHEN 325 MG TAB PO PRN (23:59)
[2022-12-31] MEDS: PENDING 1/2NSS+20mEq KCL IVF SCH ×4 (00:01→05:44)
[2022-12-31 00:50] LABS: Troponin I High Sensitivity 685.5 pg/ml (0-14)
[2022-12-31] MEDS: D5W AND 1/2NSS + 20MEQ KCL 20 MEQ/1,000 ML BAG IV SCH (03:16)
[2022-12-31] MEDS: PENDING D5 1/2NS+20mEq KCL IVF SCH ×4 (03:17→05:45)
[2022-12-31 04:32] LABS: Basophils # (auto) 0.06 K/uL (0.00-0.20); Basophils % (auto) 0.5 %; Eosinophils # (auto) 0.04 K/uL (0.00-0.50); Eosinophils % (auto) 0.3 %; Hematocrit (blood only) 41.2 % (37.0-47.0); Hemoglobin 14.3 g/dl (12.0-16.0); Immature Granulocytes # (auto) 0.09 K/uL (0.01-0.20); Immature Granulocytes % (auto) 0.8 %; Lymphocytes # (auto) 2.19 K/uL (1.20-3.40); Mean Corpuscular Hgb Conc 34.7 g/dL (32.0-36.0); Mean Corpuscular Volume 89.2 fL (80.0-100.0); Mean Platelet Volume 11.2 fL (9.4-12.4); Monocytes # (auto) 0.91 K/uL (0.11-0.59); Monocytes % (auto) 7.9 %; Neutrophils # (auto) 8.24 K/uL (1.40-6.50); Neutrophils % (auto) 71.5 %; Platelet Count 122 K/uL (130-400); RDW Coefficient of Variation 14.1 % (11.5-14.5); RDW Standard Deviation 45.4 fL (36.4-46.3); Red Blood Count 4.62 M/uL (4.20-5.40); White Blood Count 11.53 K/ul (4.8-10.8)
[2022-12-31 04:47] LABS: Albumin Globulin Ratio 1.5 (0.9-2); BUN Creatinine Ratio 18.4 (10-20); Bilirubin,Total 1.5 mg/dl (0.2-1.0); Calcium 9.5 mg/dl (8.6-10.3); Creatinine Clr Calc Pharmacy 75.4 ml/min; Est GFR (African American) 77.7 ml/min; Globulin 2.7 gm/dl (2.5-4.0); Phosphorus 2.3 mg/dl (2.5-4.9); Potassium 3.6 mmol/L (3.5-5.1); Total Protein 6.7 gm/dl (6.0-8.3)
[2022-12-31] MEDS: ACETAMINOPHEN 325 MG TAB PO PRN ×4 (04:48→23:33)
[2022-12-31 04:58] LABS: Troponin I High Sensitivity 563.2 pg/ml (0-14)
[2022-12-31 05:19] LABS: Partial Thromboplastin Time 55.7 Seconds (21.0-31.0)
[2022-12-31] MEDS ORDERED: MoRPHine SULFATE 2 MG/ML CARP IV STA (05:27)
[2022-12-31] MEDS ORDERED: POTASSIUM PHOS 3 MMOL/1 ML INFUSION IV STA (05:29)
[2022-12-31] MEDS: LEVOTHYROXINE SODIUM 150 MCG TABLET PO SCH (05:50)
[2022-12-31] MEDS ORDERED: POTASSIUM PHOSPHATE 15 MMOL in SODIUM CHLORIDE 0.9% 250 ML IV ONE (06:00)
--- OUTSIDE RECORDS SUMMARY | 2022-12-31 06:39 | External Medical Summary | Continuity of Care Document ---
Author Name Unknown Organization [place] [id number] Address [address] [place] [id number] Encounter PS FINNBR [id number] Date(s): 05/07/22 - 05/07/22 [facility] [address] [place] [id number] [address] Encounter Diagnosis Right lumbar radiculopathy(Discharge Diagnosis) - 05/07/22 Lumbar spinal stenosis(Discharge Diagnosis) - 05/07/22 Discharge Disposition: Home or Self Care Attending Physician: MD Jewel, Karl Lyn Allergies, Adverse Reactions, Alerts No Known Allergies Medications acetaminophen-codeine 300 mg-30 mg oral tablet Start: 09/28/18 14:28:00 EDT, 1 tab, PO, q6h, PRN: as needed for pain Start Date: 09/28/18 Status: Ordered atorvastatin 40 mg oral tablet Start: 09/28/18 14:30:00 EDT, 1 tab, PO, qhs Start Date: 09/28/18 Status: Ordered cyclobenzaprine 5 mg oral tablet Start: 09/28/18 14:29:00 EDT, 1 tab, PO, bid, PRN: as needed for spasm Start Date: 09/28/18 Status: Ordered glimepiride 2 mg oral tablet Start: 09/28/18 14:29:00 EDT, 1 tab, PO, Daily Start Date: 09/28/18 Status: Ordered levothyroxine 175 mcg (0.175 mg) oral tablet Start: 09/28/18 14:28:00 EDT, 1 tab, PO, Daily Start Date: 09/28/18 Status: Ordered lisinopril 40 mg oral tablet Start: 09/28/18 14:29:00 EDT, 1 tab, PO, Daily Start Date: 09/28/18 Status: Ordered meloxicam 15 mg oral tablet Start: 09/28/18 14:29:00 EDT, 1 tab, PO, Daily Start Date: 09/28/18 Status: Ordered metFORMIN 500 mg oral tablet, extended release Start: 09/28/18 14:29:00 EDT, 1 tab, PO, Daily Start Date: 09/28/18 Status: Ordered Metoprolol Succinate ER 100 mg oral tablet, extended release Start: 09/28/18 14:30:00 EDT, 1 tab, PO, Daily Start Date: 09/28/18 Status: Ordered Trulicity Pen 1.5 mg/0.5 mL subcutaneous solution Start: 09/28/18 14:29:00 EDT Start Date: 09/28/18 Status: Ordered Mental Status 05/07/22 Barriers to Learning one year None evide nt Mandatory Health Literacy Documentation Yes Health Literacy Communication Barriers N ever Primary Language Guamanian Problem List Condition Confirmation Course Effective Dates Status H ealth Status Informant Low back pain Confirmed Active Right lumbar radiculopathy Confirmed Active Lumbar spinal stenosis Confirmed Active Diagnosis Diagnosis Type Effective Dates Health Status Clinical Service Informant Right lumbar radiculopathy Discharge Diagnosis 05/07/22 Lumbar spinal stenosis Discharge Diagnosis 05/07/22 Procedures Procedure Date Related Diagnosis Body Site Status Hip replacement Completed Meniscus Completed Oral Completed Vital Signs Most recent to oldest [Reference Range]: 1 Height 171 cm (05/07/22 10:56 AM) Patient Weight 105.2 kg (05/07/22 10:56 AM) Body Mass Index 35.98 kg/m2 (05/07/22 10:56 AM) Social History Social History Type Response Smoking Status Never smoked cigaret [place] Sex Female
--- OUTSIDE RECORDS SUMMARY | 2022-12-31 06:40 | External Medical Summary ---
Author Name Unknown Address Unknown Organization [facility] USE ONLY!!! Laboratory Report Ordering Provider Test Date Status JACKIE CHRISTINE 10/28/2018 06:48:00 Final Observation Date Value Abnormality Reference Status Glucose Point of Care 10/28/2018 06:51 119 7 0-120 Final Performing Location [facility] ONLY!!!
--- OUTSIDE RECORDS SUMMARY | 2022-12-31 06:40 | External Medical Summary ---
Author Name Unknown Address Unknown Organization [facility] ONLY!!! Laboratory Report Ordering Provider Test Date Status JACKIE CHRISTINE 10/19/2018 07:10:00 Final Observation Date Value Abnormality Reference Status Glucose Point of Care 10/19/2018 08:20 115 7 0-120 Final Performing Location [facility] ONLY!!!
[2022-12-31] MEDS: MAGNESIUM OXIDE 400 MG TAB PO SCH (07:51)
[2022-12-31] MEDS: INSULIN ASPART PER UNIT CHARGE SC SCH ×4 (07:55→23:35)
[2022-12-31] MEDS: HEPARIN SODIUM/DEXTROSE 25,000 UNITS/500 ML BAG IV SCH (09:00)
[2022-12-31] MEDS ORDERED: LANTUS PER UNIT CHARGE SC ONE (10:15)
--- NOTE | 2022-12-31 11:09 | Pharmacy Report ---
Pharmacy Glycemic Short Note 2 - Date of Service December 31, 2022 - Glycemic Short BSG Results (Last 24 hours): 12/30/22 12/30/22 12/30/22 12:55 13:00 16:34 Glucose 453 H* POC Glucose 373 H* 297 H 12/30/22 12/30/22 12/30/22 17:48 18:35 19:10 Glucose 223 H POC Glucose 225 H 200 H 12/30/22 12/30/22 12/30/22 19:36 20:30 21:34 Glucose POC Glucose 211 H 184 H 163 H 12/30/22 12/30/22 12/31/22 22:30 23:32 01:35 Glucose 178 H POC Glucose 160 H 179 H 12/31/22 12/31/22 12/31/22 03:37 04:05 04:31 Glucose 152 H POC Glucose 132 H 148 H 12/31/22 12/31/22 12/31/22 05:35 06:27 07:24 Glucose POC Glucose 146 H 165 H 181 H 12/31/22 12/31/22 08:30 09:32 Glucose POC Glucose 216 H 209 H OUTPATIENT ANTIDIABETIC REGIMEN: * Dulaglutide * Glimepiride * Metformin * HbA1c pending for 12/31/22 ASSESSMENT: * 72 yo F with T2DM admitted 12/30 with saddle PE and possibly mild DKA (BSG 453, anion gap 19, CO2 18). Insulin drip initiated. Heparin drip (mixed in D5W) continues. * Discussed at ICU rounds - OK to transition off insulin drip this AM. Will stop [id number] IVF this AM as well. * No good historical glycemic data available to guide current admission dosing * Insulin drip currently running at 3.8 units/hr with BSG's in goal range, but dextrose infusion stopping. * Will initiate Lantus at 0.3 units/kg * Insulin drip to discontinue 6 hours after Lantus dose * Will start weight-based moderate stress Novolog and also add in two overnight checks PLAN FOR INPATIENT GLYCEMIC CONTROL: * Hold outpatient diabetes medications * Basal insulin * Lantus 35 units SQ x1 now * Stop insulin drip at 1630 * Bolus insulin * NovoLog per scale ACHS or Q6hrs while NPO * Goal Range: Low 110 mg/dL - High 140 mg/dL * Correction Factor: 20 mg/dL/unit * Nutritional / Prandial insulin per carb ratio of 1 unit per 7 grams CHO consumed
[2022-12-31] MEDS ORDERED: INSULIN ASPART PER UNIT CHARGE SC ONE (11:30)
[2022-12-31 11:43] LABS: BUN Creatinine Ratio 21.1 (10-20); Calcium 9.3 mg/dl (8.6-10.3); Creatinine Clr Calc Pharmacy 86.4 ml/min; Est GFR (African American) 91.5 ml/min; Est GFR (Non-African American) 78.9 ml/min; Magnesium 1.7 mg/dl (1.7-2.4); Phosphorus 2.8 mg/dl (2.5-4.9); Potassium 4.2 mmol/L (3.5-5.1)
--- NOTE | 2022-12-31 12:10 | Critical Care Progress Note ---
Date of Service December 31, 2022 Assessment & Plan (1) Saddle pulmonary embolus: (2) Trigger finger, right ring finger: (3) Lumbar radiculopathy: (4) Gilbert's syndrome: (5) Hypertension: (6) Chronic back pain: (7) Degenerative disc disease: (8) Sinus tachycardia: (9) DKA (diabetic ketoacidosis): Plan Assessment/plan: 1. Saddle Embolus with RV strain -ECHO: Did reveal decreased RV systolic function -LE Doppler US-left popliteal/tibial vein DVT -Heparin gtt- will transition to DOAC -CTA of Chest 2. DKA -insulin gtt -follow DKA orderset -will transition to subQ long and short-acting insulin 3. Sinus Tachycardia -Due to PE -Due to DKA -resolved 4. Lumbar Radiculopathy -recieves PT at home -uses rollator 5. Gilbert's Syndrome -stable 6. Chronic Back Pain -continue home medications CRITICAL CARE TIME - I have personally spent 41 minutes of critical care time in the direct management of this patient. This is a life/limb threatening event. This includes time spent evaluating patient, direct bedside care, chart review, placing orders, interpretation of diagnostic studies, discussion with consultants, patient, and family members, as well as other required patient management activities. This time is exclusive of all separately billable procedures, and teaching time and separate from and in addition to any other critical care service time. Admission and Anticipated Discharge Date Admission Date: December 30, 2022 Subjective Ms. nix is doing quite well today explains that her breathing is better she remains on the heparin drip and also insulin drip. Blood sugars have normalized less than 200 and anion gap is also normal. Echo did reveal RV dysfunction and patient's lower extremity Dopplers did show a left popliteal and tibial vein thrombosis. She reports no new problems overnight of this morning. Review of Systems Review of Systems: All systems reviewed & are unremarkable except as noted in Subjective Physical Exam Constitutional: WD/WN, vitals as above Patient's sinus tachycardia has resolved overnight. Eyes: PERRL, conjunctivae normal, anicteric sclerae ENMT: external ear and nose normal, oropharynx normal Neck: trachea midline, no thyromegaly Respiratory: normal respiratory effort, lungs clear to auscultation Cardiovascular: RRR, no murmur, no edema Gastrointestinal (Abdomen): normal bowel sounds, soft, nontender, no hepatosplenomegaly Musculoskeletal: no cyanosis or clubbing, extremities motor strength 5/5 Skin: no rashes, warm and dry Neurologic: patellar DTR's 2+ bilat, sensation intact and PERRL, EOMI, accommodation nl, no face palsy, no dysarthria Psychiatric: A+Ox3, euthymic affect Results & Data Results & Data Vital Signs (Past 12 Hours) Vital Signs Temp Pulse Resp BP Pulse Ox O2 Del Method O2 Flow Rate 12/31/22 10:00 98 H 22 98 12/31/22 10:00 128/95 12/31/22 09:30 98 H 20 97 12/31/22 09:00 99 H 29 H 99 12/31/22 09:00 124/90 12/31/22 08:30 100 H 27 H 98 12/31/22 08:00 102 H 30 H 99 12/31/22 08:00 127/87 12/31/22 07:30 101 H 27 H 98 12/31/22 07:00 90 25 H 98 12/31/22 07:00 120/81 12/31/22 06:30 90 24 99 12/31/22 06:00 87 24 97 12/31/22 06:00 126/78 12/31/22 08:00 Nasal Cannula 12/31/22 08:01 Nasal Cannula 2 12/31/22 08:01 36.7 C 12/31/22 05:30 94 H 27 H 98 12/31/22 05:00 96 H 33 H 99 12/31/22 05:00 138/84 12/31/22 04:30 94 H 30 H 99 12/31/22 04:00 95 H 22 99 12/31/22 04:00 121/81 12/31/22 03:30 96 H 19 98 12/31/22 03:00 96 H 26 H 97 12/31/22 03:00 129/91 12/31/22 02:30 98 H 22 97 12/31/22 02:00 97 H 30 H 96 12/31/22 02:00 128/97 12/31/22 01:30 96 H 26 H 96 12/31/22 01:00 91 H 20 96 12/31/22 01:00 106/74 12/31/22 00:30 36.9 C 92 H 20 97 Laboratory Results Laboratory Results WBC 11.53 K/ul (4.8-10.8) H 12/31/22 04:05 RBC 4.62 M/uL (4.20-5.40) 12/31/22 04:05 Hgb 14.3 g/dl (12.0-16.0) 12/31/22 04:05 Hct 41.2 % (37.0-47.0) 12/31/22 04:05 MCV 89.2 fL (80.0-100.0) 12/31/22 04:05 MCH 31.0 pg (25.0-34.0) 12/31/22 04:05 MCHC 34.7 g/dL (32.0-36.0) 12/31/22 04:05 RDW Std Deviation 45.4 fL (36.4-46.3) 12/31/22 04:05 RDW Coeff of Kamla 14.1 % (11.5-14.5) 12/31/22 04:05 Plt Count 122 K/uL (130-400) L 12/31/22 04:05 MPV 11.2 fL (9.4-12.4) 12/31/22 04:05 Immature Gran % (Auto) 0.8 % 12/31/22 04:05 Neut % (Auto) 71.5 % 12/31/22 04:05 Lymph % (Auto) 19.0 % 12/31/22 04:05 Wilbarger % (Auto) 7.9 % 12/31/22 04:05 Eos % (Auto) 0.3 % 12/31/22 04:05 Baso % (Auto) 0.5 % 12/31/22 04:05 Neut # (Auto) 8.24 K/uL (1.40-6.50) H 12/31/22 04:05 Lymph # (Auto) 2.19 K/uL (1.20-3.40) 12/31/22 04:05 Wilbarger # (Auto) 0.91 K/uL (0.11-0.59) H 12/31/22 04:05 Eos # (Auto) 0.04 K/uL (0.00-0.50) 12/31/22 04:05 Baso # (Auto) 0.06 K/uL (0.00-0.20) 12/31/22 04:05 Immature Gran # (Auto) 0.09 K/uL (0.01-0.20) 12/31/22 04:05 PT 11.9 Seconds (9.0-12.0) 12/30/22 13:00 INR 1.1 (0.9-1.1) 12/30/22 13:00 APTT 55.7 Seconds (21.0-31.0) H* 12/31/22 04:05 PTT Ratio 2.0 12/31/22 04:05 VBG pH 7.37 (7.36-7.41) 12/30/22 22:38 VBG pCO2 44 mmHg (38-50) 12/30/22 13:12 VBG pO2 42 mmHg 12/30/22 13:12 VBG HCO3 17 mmol/L 12/30/22 13:12 VBG O2 Saturation 64.0 % 12/30/22 13:12 VBG Base Excess -10.5 mEq/L 12/30/22 13:12 Sodium 135 mmol/L (136-145) L 12/31/22 11:13 Potassium 4.2 mmol/L (3.5-5.1) 12/31/22 11:13 Chloride 102 mmol/L (98-107) 12/31/22 11:13 Carbon Dioxide 22 mmol/L (21-32) 12/31/22 11:13 Anion Gap 11 (3-11) 12/31/22 11:13 BUN 16 mg/dl (6-23) 12/31/22 11:13 Creatinine 0.76 mg/dl (0.6-1.2) 12/31/22 11:13 Est Cr Clr Drug Dosing 86.4 ml/min 12/31/22 11:13 Est GFR ( Amer) 91.5 ml/min 12/31/22 11:13 Est GFR (Non-Af Amer) 78.9 ml/min 12/31/22 11:13 BUN/Creatinine Ratio 21.1 (10-20) H 12/31/22 11:13 Glucose 201 mg/dl (70-99(Fasting)) H 12/31/22 11:13 POC Glucose 216 mg/dl (70-99) H 12/31/22 11:27 Lactate 3.8 mmol/L (0.4-2.0) H* 12/31/22 04:05 Calcium 9.3 mg/dl (8.6-10.3) 12/31/22 11:13 Phosphorus 2.8 mg/dl (2.5-4.9) 12/31/22 11:13 Magnesium 1.7 mg/dl (1.7-2.4) 12/31/22 11:13 Total Bilirubin 1.5 mg/dl (0.2-1.0) H 12/31/22 04:05 AST 20 U/L (13-39) 12/31/22 04:05 ALT 22 U/L (7-52) 12/31/22 04:05 Alkaline Phosphatase 72 U/L (34-104) 12/31/22 04:05 Troponin I High Sens 563.2 pg/ml (0-14) H* 12/31/22 04:05 B-Natriuretic Peptide 7 pg/ml (0-100) 12/30/22 13:00 Total Protein 6.7 gm/dl (6.0-8.3) 12/31/22 04:05 Albumin 4.0 gm/dl (3.4-5.0) 12/31/22 04:05 Globulin 2.7 gm/dl (2.5-4.0) 12/31/22 04:05 Albumin/Globulin Ratio 1.5 (0.9-2) 12/31/22 04:05 Urine Color Yellow 12/30/22 19:00 Urine Appearance Clear (Clear) 12/30/22 19:00 Urine pH 5.5 (4.5-7.5) 12/30/22 19:00 Ur Specific Jay > 1.045 (1.000-1.030) H 12/30/22 19:00 Urine Protein 1+ (Negative) H 12/30/22 19:00 Urine Glucose (UA) 1+ (Negative) H 12/30/22 19:00 Urine Ketones Trace (Negative) H 12/30/22 19:00 Urine Blood 1+ (Negative) H 12/30/22 19:00 Urine Nitrite Negative (Negative) 12/30/22 19:00 Urine Bilirubin Negative (Negative) 12/30/22 19:00 Urine Urobilinogen Negative (Negative) 12/30/22 19:00 Ur Leukocyte Esterase Negative (Negative) 12/30/22 19:00 Urine WBC (Auto) 1-5 /hpf (0-5) 12/30/22 19:00 Urine RBC (Auto) 5-10 /hpf (0-4) H 12/30/22 19:00 U Hyaline Cast (Auto) 1-5 /lpf (0-5) 12/30/22 19:00 U Epithel Cells (Auto) >30 /lpf (0-5) H 12/30/22 19:00 Urine Bacteria (Auto) Negative (Negative) 12/30/22 19:00 Nasal Screen MRSA (PCR) Negative (Negative) 12/30/22 18:30 Adenovirus (PCR) Not Detected (NotDetected) 12/30/22 13:40 B. pertussis DNA (PCR) Not Detected (NotDetected) 12/30/22 13:40 B.parapertussis DNA PCR Not Detected (NotDetected) 12/30/22 13:40 C. pneumoniae DNA (PCR) Not Detected (NotDetected) 12/30/22 13:40 Coronavirus OC43 (PCR) Not Detected (NotDetected) 12/30/22 13:40 Coronavirus HKU1 (PCR) Not Detected (NotDetected) 12/30/22 13:40 Coronavirus 229E (PCR) Not Detected (NotDetected) 12/30/22 13:40 SARS-CoV-2 (PCR) Not Detected (NotDetected) 12/30/22 13:40 Coronavirus NL63 (PCR) Not Detected (NotDetected) 12/30/22 13:40 Human Metapneumovir PCR Not Detected (NotDetected) 12/30/22 13:40 Influenza Type A (PCR) Not Detected (NotDetected) 12/30/22 13:40 Influenza Type B (PCR) Not Detected (NotDetected) 12/30/22 13:40 M. pneumoniae (PCR) Not Detected (NotDetected) 12/30/22 13:40 Parainfluenza 1 (PCR) Not Detected (NotDetected) 12/30/22 13:40 Parainfluenza 2 (PCR) Not Detected (NotDetected) 12/30/22 13:40 Parainfluenza 3 (PCR) Not Detected (NotDetected) 12/30/22 13:40 Parainfluenza 4 (PCR) Not Detected (NotDetected) 12/30/22 13:40 RSV (PCR) Not Detected (NotDetected) 12/30/22 13:40 Entero/Rhino (PCR) Not Detected (NotDetected) 12/30/22 13:40 Impressions Chest X-Ray 12/30/22 12:57 XR chest 1V portable CLINICAL HISTORY: Dyspnea. COMPARISON STUDY: Chest radiograph and chest CT October 27, 2019. FINDINGS: Lung volumes are normal. Lungs are clear. There is no pneumothorax or pleural effusion. Cardiac size is normal. Mediastinal contours are normal. There is no evidence for pulmonary edema. IMPRESSION: No acute cardiopulmonary findings. ACT 112: Negative or not required by law. Electronically signed by: Raymond Gonzalez M.D. 12/30/2022 1:21 PM Chest CTA 12/30/22 13:13 CT angio chest PE protocol CLINICAL HISTORY: PE TECHNIQUE: Multidetector row helical CT of the chest was performed with angiographic protocol. Coronal and sagittal reformations were obtained. Coronal and sagittal MIPS were obtained from the axial data set and were submitted for review. Automated dose lowering techniques and/or adjustment according to patient size were utilized for this exam. CT DOSE: 952.66 mGy.cm Comparison: Comparison is made to CT abdomen pelvis 10/27/2019 FINDINGS: Lungs and pleura: Normal. Heart and pericardium: There is enlargement of the right ventricle compatible with right heart strain. Vessels: Saddle emboli are seen with multiple lobar and segmental branches. Mediastinum and bernarda: Unremarkable. Chest wall and lower neck: Unremarkable. Abdomen: Unremarkable. Bones: Unremarkable. IMPRESSION: Extensive pulmonary emboli are seen with evidence of right heart strain. ACT 112: Negative or not required by law. Electronically signed by: Sean Desouza M.D. 12/30/2022 3:32 PM Venous Doppler Study 12/30/22 18:38 Exam(s): US VENOUS BILATERAL LOWER EXTREMITIES EXAM: US Duplex Bilateral Lower Extremities Veins CLINICAL HISTORY: saddle pulmonary embolism ?DVT. TECHNIQUE: Real-time duplex ultrasound scan of the bilateral lower extremity veins integrating B-mode two-dimensional vascular structure, Doppler spectral analysis, color flow Doppler imaging and compression. COMPARISON: No relevant prior studies available. FINDINGS: Right deep veins: Unremarkable. No DVT in the right common femoral, femoral, proximal deep femoral or popliteal veins. The veins demonstrate normal color flow, are normally compressible, with normal phasic flow and/or augmentation response. The interrogated calf veins are patent. Right superficial veins: Unremarkable. No thrombus in the saphenofemoral junction. Left deep veins: There is occlusive thrombus noted in the left popliteal vein with distal extension to the posterior tibial veins. The left common femoral and superficial femoral veins are compressible and demonstrate normal color flow. Left superficial veins: No thrombus in the saphenofemoral junction. Soft tissues: No acute findings. No popliteal cyst. IMPRESSION: 1. There is occlusive thrombus noted in the left popliteal vein with distal extension to the posterior tibial veins. No retrograde/central extension to involve the left superficial femoral or femoral vein is identified. 2. No evidence for deep vein thrombosis involving the right lower extremity. Electronically signed by: Lorenzo Perry MD 12/30/22 21:31 PM Medications Administered Home Medications Medication Instructions Recorded Confirmed Last Taken cholecalciferol (vitamin D3) 25 1,000 unit PO QAM 08/13/18 12/30/22 12/29/22 mcg (1,000 unit) capsule (Vitamin D3) cinnamon bark 500 mg capsule 500 mg PO QAM 08/13/18 12/30/22 12/29/22 (Cinnamon) omega 6-car-goo-fish oil 1,000 mg 1 cap PO QAM 08/13/18 12/30/22 12/29/22 (120 mg-180 mg) capsule (Fish Oil) fexofenadine 60 mg tablet (Hayley 60 mg PO QPM 03/29/19 12/30/22 12/29/22 Allergy) atorvastatin 40 mg tablet 40 mg PO PM #90 tabs 11/25/21 12/30/22 12/29/22 meloxicam 15 mg tablet 15 mg PO QAM #30 tabs 12/16/21 12/30/22 12/29/22 cyclobenzaprine 5 mg tablet 5 mg PO TID PRN sciatica #60 tabs 05/01/22 12/30/22 Unknown magnesium oxide 400 mg PO QAM 05/15/22 12/30/22 12/29/22 metoprolol succinate 200 mg 200 mg PO QAM 05/15/22 12/30/22 12/29/22 tablet,extended release 24 hr (Toprol XL) levothyroxine 150 mcg tablet 150 mcg PO QAM #90 tabs 06/02/22 12/30/22 12/30/22 glimepiride 4 mg tablet 4 mg PO QAM #90 tabs 09/23/22 12/30/22 12/29/22 lisinopril 40 mg tablet 40 mg PO QAM #90 tabs 09/23/22 12/30/22 12/29/22 metformin 500 mg tablet,extended 1,000 mg PO BID #360 tabs 09/23/22 12/30/22 12/29/22 release 24 hr dulaglutide 1.5 mg/0.5 mL 1.5 mg (0.5 mL) subcut WK #2 mL 10/20/22 12/30/22 12/22/22 subcutaneous pen injector (Trulicity) acetaminophen 300 mg-codeine 30 mg 1 - 2 tab PO .Q4-6HRS PRN pain 12/30/22 12/30/22 Unknown tablet amoxicillin 500 mg capsule 2,000 mg PO DIRECTED PRN PRIOR 12/30/22 12/30/22 Unknown TO DENTAL WORK. [id number] 5 mg-zeaxanth 1 cap PO DAILY 12/30/22 12/30/22 12/29/22 1 mg-bilberry 7.5 mg-herbal capsule (Macular Health Formula) Active Medications Generic Name Dose Route Start Last Admin Trade Name Freq PRN Reason Stop Dose Admin Acetaminophen 650 mg 12/30/22 23:52 12/31/22 04:48 Acetaminophen 325 Mg Tab PO 01/29/23 23:51 650 mg Q4H PRN Administration Pain Atorvastatin Calcium 40 mg 12/30/22 21:00 12/30/22 21:04 Atorvastatin 40 Mg Tab PO 01/29/23 20:59 40 mg PM RUBIO Administration Fexofenadine HCl 60 mg 12/30/22 21:00 12/30/22 21:04 Fexofenadine 60 Mg Tab PO 01/29/23 20:59 60 mg QPM RUBIO Administration Heparin Sodium/Dextrose 25,000 units in 500 mls @ 30 mls/hr 12/30/22 16:00 12/31/22 09:00 Heparin Sodium/Dextrose IV 01/29/23 15:59 1,500 units/hr .[id number] RUBIO 30 mls/hr Administration Protocol 1,500 UNITS/HR Insulin Human Regular 250 250 mls @ 4.8 mls/hr 12/30/22 16:15 12/31/22 11:31 units/ Sodium Chloride IV 12/31/22 16:30 3.8 units/hr .Q24H RUBIO 3.8 mls/hr Titration Protocol 4.8 UNITS/HR Levothyroxine Sodium 150 mcg 12/31/22 06:30 12/31/22 05:50 Levothyroxine Sodium 150 Mcg Tablet PO 01/30/23 06:29 150 mcg DAILYBB RUBIO Administration Magnesium Oxide 400 mg 12/31/22 09:00 12/31/22 07:51 Magnesium Oxide 400 Mg Tab PO 01/30/23 08:59 400 mg QAM RUBIO Administration Coding Level of Care Code 30043 CRITICAL CARE 1ST 30-74M Diagnoses Saddle pulmonary embolus I26.92 Trigger finger, right ring finger M65.341 Lumbar radiculopathy M54.16 Gilbert's syndrome E80.4 Hypertension I10 Chronic back pain M54.9; G89.29 Degenerative disc disease Sinus tachycardia R00.0 DKA (diabetic ketoacidosis) E11.10
[2022-12-31 12:22] LABS: Estimated Average Glucose 200 mg/dl; Hemoglobin A1C 8.6 % (4.5-5.6)
[2022-12-31] MEDS: INSULIN REGULAR 250 UNITS in SODIUM CHLORIDE 0.9% 247.5 ML IV SCH (17:06)
[2022-12-31 18:11] LABS: BUN Creatinine Ratio 21.9 (10-20); Calcium 9.5 mg/dl (8.6-10.3); Creatinine Clr Calc Pharmacy 89.9 ml/min; Est GFR (Non-African American) 82.9; Magnesium 1.8 mg/dl (1.7-2.4); Phosphorus 2.5 mg/dl (2.5-4.9)
[2022-12-31] MEDS: ATORVASTATIN 40 MG TAB PO SCH (20:37)
[2022-12-31] MEDS: FEXOFENADINE 60 MG TAB PO SCH (20:38)
--- NOTE | 2022-12-31 20:54 | Hospitalist Progress Note ---
Date of Service December 31, 2022 Assessment & Plan (1) Saddle pulmonary embolus: Plan: Saddle PEwith acute cor pulmonale 72-year-old female who presents with large saddle pulmonary emboli with evidence of right heart strain by CAT scan. Tachycardia 141, tachypnea 30, CAT scan showing evidence of right heart strain, positive high-sensitivity serial troponins suggestive of right ventricular strain 52.2, to 37.2, 65.5, 563.2, Treatment: Oxygen, CAT scan, ICU hemodynamic monitoring, IV heparin drip, TTE ordered as stated above. Will maintain in ICU overnight and transfer in AM if patient continues to improve. Plan to transition to DOAC on 01/01 (2) High anion gap metabolic acidosis: Plan: Anion gap suspect mixed ketones and lactic acidosis from poor oxygenation with pulmonary embolism. Elevation in anion gap once lactate taken into account for normal level 3.8. Awaiting UA to assess for ketones Irregardless will treat for DKA with insulin drip to help better glucose control but she does not require significant IV fluids in the setting of saddle pulmonary embolism and IVC dilatation with reduced inspiratory collapse. (3) DKA (diabetic ketoacidosis): Plan: Insulin IV drip with aim 150-250 Half NSS + KCl 20 meq @ 125ml/hr, switch to add D5 once glucose within aim 150- 250 transition drip to subq long acting. Patient is improving from this. (4) Hypomagnesemia: Plan: Mg replaced. (5) Hypertension: Plan: Holding lisinopril and metoprolol in setting of saddle pulmonary embolism Likely can restart metoprolol tomorrow as long as hemodynamically stable overnight (6) Hyperlipidemia: Plan: Continue atorvastatin (7) Hypothyroidism: Plan: TSH 0.963 in September Continue levothyroxine (8) Diabetes mellitus, type 2: Plan: HBA1C 9.3 in September, repeat with AM labs Stop all home medications treatemnt as above. Plan VTE Prophylaxis - IV heparin bolus and drip, will transition to DOAC Disposition - admit to ICU Admission and Anticipated Discharge Date Admission Date: December 30, 2022 Subjective Mrs. Hernández feels much better today. She states she feels less SOB, fatigued, and appears to be more comfortable. She even inquires on when she could be discharged. Review of Systems Review of Systems: All systems reviewed & are unremarkable except as noted in HPI & below Physical Exam Constitutional: WD/WN, vitals as above Eyes: PERRL, conjunctivae normal, anicteric sclerae ENMT: external ear and nose normal, oropharynx normal Neck: trachea midline, no thyromegaly Respiratory: normal respiratory effort, lungs clear to auscultation Cardiovascular: Rate/Rhythm: regular rhythm and + tachycardic Heart Sounds: no murmur Extremities: normal capillary refill and + pedal edema (trace b/l equal); no calf tenderness Gastrointestinal (Abdomen): normal bowel sounds, soft, nontender, no hepatosplenomegaly Musculoskeletal: no cyanosis or clubbing, extremities motor strength 5/5 Skin: no rashes, warm and dry Neurologic: moves all extremities and awake; not confused Psychiatric: A+Ox3, euthymic affect Results & Data Results & Data Vital Signs (Past 12 Hours) Vital Signs Temp Pulse Resp BP Pulse Ox O2 Del Method 12/31/22 20:43 37.0 C 12/31/22 19:28 Room Air 12/31/22 18:00 108 H 24 95 12/31/22 18:00 157/85 H 12/31/22 18:38 113 H 12/31/22 17:00 113 H 18 98 12/31/22 17:00 125/95 12/31/22 16:00 102 H 25 H 95 12/31/22 16:00 128/88 12/31/22 15:00 103 H 25 H 96 12/31/22 15:00 118/78 12/31/22 14:00 106 H 20 96 12/31/22 14:00 110/76 12/31/22 13:00 108 H 26 H 95 12/31/22 13:00 127/74 12/31/22 16:00 107 H 12/31/22 12:00 107 H 29 H 97 12/31/22 12:00 121/88 12/31/22 11:00 105 H 24 98 12/31/22 12:15 36.6 C 12/31/22 10:00 98 H 22 98 12/31/22 10:00 128/95 12/31/22 09:30 98 H 20 97 12/31/22 09:00 99 H 29 H 99 12/31/22 09:00 124/90 PG Care Time/CCT Total # of Minutes Spent Total Time Spent with Patient: Total time spent is greater than 50% in coordination of care (as documented) at patient's floor/unit and/or counseling patient: Coding Level of Care Code 58874 SUB INP/OBS CARE 3/50MIN Diagnoses Saddle pulmonary embolus I26.92 High anion gap metabolic acidosis E87.29 DKA (diabetic ketoacidosis) E11.10 Hypomagnesemia E83.42 Hypertension I10 Hyperlipidemia E78.5 Hypothyroidism E03.9 Diabetes mellitus, type 2 E11.9
[2023-01-01] MEDS: HEPARIN SODIUM/DEXTROSE 25,000 UNITS/500 ML BAG IV SCH (01:42)
[2023-01-01] MEDS: INSULIN ASPART PER UNIT CHARGE SC SCH ×5 (04:32→20:35)
[2023-01-01 05:18] LABS: Partial Thromboplastin Ratio 1.7
[2023-01-01 05:23] LABS: Partial Thromboplastin Time 49.3 Seconds (21.0-31.0)
[2023-01-01] MEDS: LEVOTHYROXINE SODIUM 150 MCG TABLET PO SCH (06:03)
--- NOTE | 2023-01-01 07:34 | Hospitalist Progress Note ---
Date of Service January 01, 2023 Assessment & Plan (1) Saddle pulmonary embolus: Plan: Saddle PEwith acute cor pulmonale 72-year-old female who presents with large saddle pulmonary emboli with evidence of right heart strain by CAT scan. CAT scan and ECHO showing evidence of right heart strain, positive high- sensitivity serial troponins suggestive of right ventricular strain 52.2, to 37.2, 65.5, 563.2, Heparin gtt to DOAC Eliquis started 01/01 (2) DKA (diabetic ketoacidosis): Plan: High anion gap acidosis Insulin IV drip transition drip to subq long acting. Patient is improving from this. HBA1C 9.3 (3) Hypertension: Plan: Chronic and stable Holding lisinopril and metoprolol in setting of saddle pulmonary embolism Likely can restart metoprolol as long as hemodynamically stable (4) Hyperlipidemia: Plan: Continue atorvastatin (5) Hypothyroidism: Plan: TSH 0.963 in September Continue levothyroxine Admission and Anticipated Discharge Date Admission Date: December 30, 2022 Subjective pt is sitting in her chair, is tachycardic, did have some DIEGO but improved some LE edema will try TEDS Physical Exam Physical Exam: Awake and alert lungs are clear cardiac is regular, no murmur legs with 1+ edema Results & Data Results & Data Vital Signs (Past 12 Hours) Vital Signs Temp Pulse Pulse Resp BP BP Pulse Ox 01/01/23 06:09 94 H 20 162/97 H 95 01/01/23 05:00 93 H 21 141/88 H 94 01/01/23 04:00 95 H 18 131/84 93 01/01/23 03:00 98.6 F 94 H 20 140/88 95 01/01/23 01:00 97 H 17 97 01/01/23 00:00 96 H 22 130/84 94 12/31/22 23:00 102 H 22 134/93 93 01/01/23 02:00 98.2 F 98 H 21 140/91 95 01/01/23 00:33 103 H 12/31/22 22:00 101 H 23 154/84 H 98 12/31/22 21:00 103 H 24 134/88 96 12/31/22 20:00 103 H 27 H 140/84 97 12/31/22 20:43 98.6 F 12/31/22 19:28 O2 Del Method 01/01/23 06:09 Room Air 01/01/23 05:00 Room Air 01/01/23 04:00 Room Air 01/01/23 03:00 Room Air 01/01/23 01:00 01/01/23 00:00 12/31/22 23:00 01/01/23 02:00 Room Air 01/01/23 00:33 12/31/22 22:00 Room Air 12/31/22 21:00 Room Air 12/31/22 20:00 Room Air 12/31/22 20:43 12/31/22 19:28 Room Air Laboratory Results reviewed cbc, coagulation, chemistry and magnesium PG Care Time/CCT Total # of Minutes Spent Total Time Spent with Patient: Total time spent is greater than 50% in coordination of care (as documented) at patient's floor/unit and/or counseling patient: Coding Level of Care Code 01156 SUB INP/OBS CARE 3/50MIN Diagnoses Saddle pulmonary embolus I26.92 DKA (diabetic ketoacidosis) E11.10 Hypertension I10 Hyperlipidemia E78.5 Hypothyroidism E03.9
[2023-01-01] MEDS ORDERED: LANTUS PER UNIT CHARGE SC ONE ×2 (07:45→21:00)
[2023-01-01] MEDS: MAGNESIUM OXIDE 400 MG TAB PO SCH (07:53)
[2023-01-01 08:03] LABS: Hematocrit (blood only) 40.9 % (37.0-47.0); Mean Corpuscular Hemoglobin 30.2 pg (25.0-34.0); Mean Corpuscular Hgb Conc 34.2 g/dL (32.0-36.0); Mean Corpuscular Volume 88.1 fL (80.0-100.0); Mean Platelet Volume 11.4 fL (9.4-12.4); Platelet Count 99 K/uL (130-400); RDW Coefficient of Variation 13.8 % (11.5-14.5); RDW Standard Deviation 44.3 fL (36.4-46.3); Red Blood Count 4.64 M/uL (4.20-5.40); White Blood Count 7.84 K/ul (4.8-10.8)
[2023-01-01 08:21] LABS: Basophils # (auto) 0.05 K/uL (0.00-0.20); Basophils % (auto) 0.6 %; Eosinophils # (auto) 0.05 K/uL (0.00-0.50); Eosinophils % (auto) 0.6 %; Immature Granulocytes # (auto) 0.08 K/uL (0.01-0.20); Lymphocytes # (auto) 2.67 K/uL (1.20-3.40); Lymphocytes % (auto) 34.1 %; Monocytes # (auto) 0.62 K/uL (0.11-0.59); Monocytes % (auto) 7.9 %; Neutrophils # (auto) 4.37 K/uL (1.40-6.50); Neutrophils % (auto) 55.8 %
[2023-01-01 08:25] LABS: Calcium 9.5 mg/dl (8.6-10.3); Creatinine Clr Calc Pharmacy 86.6 ml/min; Est GFR (African American) 92.9 ml/min; Est GFR (Non-African American) 80.2 ml/min; Magnesium 1.6 mg/dl (1.7-2.4); Phosphorus 2.9 mg/dl (2.5-4.9); Potassium 3.8 mmol/L (3.5-5.1)
[2023-01-01] MEDS: APIXABAN 5 MG TABLET PO SCH ×2 (08:48→20:35)
--- NOTE | 2023-01-01 10:11 | Pharmacy Report ---
Pharmacy Glycemic Short Note 2 - Date of Service January 01, 2023 - Glycemic Short BSG Results (Last 24 hours): 12/31/22 12/31/22 12/31/22 11:13 11:27 13:27 Glucose 201 H POC Glucose 216 H 260 H 12/31/22 12/31/22 12/31/22 14:29 15:01 15:59 Glucose 188 H POC Glucose 191 H 178 H 12/31/22 12/31/22 01/01/23 20:33 23:32 04:14 Glucose POC Glucose 266 H 223 H 175 H 01/01/23 01/01/23 07:07 07:31 Glucose 181 H POC Glucose 152 H OUTPATIENT ANTIDIABETIC REGIMEN: * Dulaglutide * Glimepiride * Metformin * HbA1c pending for 12/31/22 ASSESSMENT: 01/01 * Heparin drip stopped at 0900 this AM. Drip transition yesterday went smoothly except for some post-prandial elevations after 60 g CHO at dinner, managed by correctional insulin which successfully brought AM fasting down this AM * AM fasting 152 mg/dL - will continue same Lantus dose as this is not yet at steady state and continuous [id number] heparin drip has stopped * Will tighten CHO ratio due to post-prandial elevation yesterday 12/31 * 72 yo F with T2DM admitted 12/30 with saddle PE and possibly mild DKA (BSG 453, anion gap 19, CO2 18). Insulin drip initiated. Heparin drip (mixed in D5W) continues. * Discussed at ICU rounds - OK to transition off insulin drip this AM. Will stop [id number] IVF this AM as well. * No good historical glycemic data available to guide current admission dosing * Insulin drip currently running at 3.8 units/hr with BSG's in goal range, but dextrose infusion stopping. * Will initiate Lantus at 0.3 units/kg * Insulin drip to discontinue 6 hours after Lantus dose * Will start weight-based moderate stress Novolog and also add in two overnight checks PLAN FOR INPATIENT GLYCEMIC CONTROL: * Hold outpatient diabetes medications * Basal insulin * Lantus 35 units SQ x1 now * Bolus insulin * NovoLog per scale ACHS or Q6hrs while NPO * Goal Range: Low 110 mg/dL - High 140 mg/dL * Correction Factor: 20 mg/dL/unit * Nutritional / Prandial insulin per carb ratio of 1 unit per 6 grams CHO consumed
--- NOTE | 2023-01-01 16:37 | Critical Care Progress Note ---
Date of Service January 01, 2023 Assessment & Plan (1) Saddle pulmonary embolus: (2) Trigger finger, right ring finger: (3) Lumbar radiculopathy: (4) Gilbert's syndrome: (5) Hypertension: (6) Chronic back pain: (7) Degenerative disc disease: (8) Sinus tachycardia: (9) DKA (diabetic ketoacidosis): Plan Assessment/plan: 1. Saddle Embolus with RV strain -ECHO -LE Doppler US -Heparin gtt transition to Eliquis -CTA of Chest 2. DKA -insulin gtt weaned off and now on short and long-acting insulin -follow DKA orderset 3. Sinus Tachycardia-resolved -Due to PE -Due to DKA 4. Lumbar Radiculopathy -recieves PT at home -uses rollator 5. Gilbert's Syndrome 6. Chronic Back Pain -continue home medications CRITICAL CARE TIME - I have personally spent 39 minutes of critical care time in the direct management of this patient. This is a life/limb threatening event. This includes time spent evaluating patient, direct bedside care, chart review, placing orders, interpretation of diagnostic studies, discussion with consultants, patient, and family members, as well as other required patient management activities. This time is exclusive of all separately billable procedures, and teaching time and separate from and in addition to any other critical care service time. Admission and Anticipated Discharge Date Admission Date: December 30, 2022 Subjective Patient now no longer requiring oxygen, will be weaned off her heparin drip later this morning, no longer using insulin drip. Eating well and ambulating within the room therefore we will suggest transfer to the floor and patient does have orders to start a DOAC today. Review of Systems Review of Systems: All systems reviewed & are unremarkable except as noted in Subjective Physical Exam Constitutional: WD/WN, vitals as above Eyes: PERRL, conjunctivae normal, anicteric sclerae ENMT: external ear and nose normal, oropharynx normal Neck: trachea midline, no thyromegaly Respiratory: normal respiratory effort, lungs clear to auscultation Cardiovascular: RRR, no murmur, no edema Gastrointestinal (Abdomen): normal bowel sounds, soft, nontender, no hepatosplenomegaly Musculoskeletal: no cyanosis or clubbing, extremities motor strength 5/5 Skin: no rashes, warm and dry Neurologic: patellar DTR's 2+ bilat, sensation intact and PERRL, EOMI, accommodation nl, no face palsy, no dysarthria Psychiatric: A+Ox3, euthymic affect Results & Data Results & Data Vital Signs (Past 12 Hours) Vital Signs Temp Pulse Pulse Resp BP BP Pulse Ox 01/01/23 16:00 107 H 01/01/23 11:00 36.9 C 97 H 20 152/96 H 95 01/01/23 10:00 107 H 22 96 01/01/23 10:00 143/86 H 01/01/23 09:57 113 H 21 96 01/01/23 09:57 183/94 H 01/01/23 09:55 119 H 26 H 96 01/01/23 09:55 180/114 H 01/01/23 09:00 102 H 23 94 01/01/23 08:01 151/82 H 01/01/23 08:01 114 H 24 93 01/01/23 08:00 119 H 27 H 78 L 01/01/23 07:00 83 17 94 01/01/23 07:00 137/82 01/01/23 08:00 01/01/23 08:00 01/01/23 08:00 97 H 01/01/23 07:00 36.8 C 98 H 20 137/82 95 01/01/23 06:09 94 H 20 162/97 H 95 01/01/23 05:00 93 H 21 141/88 H 94 O2 Del Method 01/01/23 16:00 01/01/23 11:00 Room Air 01/01/23 10:00 01/01/23 10:00 01/01/23 09:57 01/01/23 09:57 01/01/23 09:55 01/01/23 09:55 01/01/23 09:00 01/01/23 08:01 01/01/23 08:01 01/01/23 08:00 01/01/23 07:00 01/01/23 07:00 01/01/23 08:00 Room Air 01/01/23 08:00 Room Air 01/01/23 08:00 01/01/23 07:00 Room Air 01/01/23 06:09 Room Air 01/01/23 05:00 Room Air Laboratory Results Laboratory Results WBC 7.84 K/ul (4.8-10.8) 01/01/23 07: RBC 4.64 M/uL (4.20-5.40) 01/01/23 07: Hgb 14.0 g/dl (12.0-16.0) 01/01/23 07: Hct 40.9 % (37.0-47.0) 01/01/23 07: MCV 88.1 fL (80.0-100.0) 01/01/23 07: MCH 30.2 pg (25.0-34.0) 01/01/23 07: MCHC 34.2 g/dL (32.0-36.0) 01/01/23 07: RDW Std Deviation 44.3 fL (36.4-46.3) 01/01/23 07: RDW Coeff of Kamla 13.8 % (11.5-14.5) 01/01/23 07: Plt Count 99 K/uL (130-400) L 01/01/23 07: MPV 11.4 fL (9.4-12.4) 01/01/23 07: Immature Gran % (Auto) 1.0 % 01/01/23 07: Neut % (Auto) 55.8 % 01/01/23 07: Lymph % (Auto) 34.1 % 01/01/23 07: Love % (Auto) 7.9 % 01/01/23 07: Eos % (Auto) 0.6 % 01/01/23 07: Baso % (Auto) 0.6 % 01/01/23 07: Neut # (Auto) 4.37 K/uL (1.40-6.50) 01/01/23 07: Lymph # (Auto) 2.67 K/uL (1.20-3.40) 01/01/23 07: Love # (Auto) 0.62 K/uL (0.11-0.59) H 01/01/23 07: Eos # (Auto) 0.05 K/uL (0.00-0.50) 01/01/23 07: Baso # (Auto) 0.05 K/uL (0.00-0.20) 01/01/23 07:31 Immature Gran # (Auto) 0.08 K/uL (0.01-0.20) 01/01/23 07:31 PT 11.9 Seconds (9.0-12.0) 12/30/22 13:00 INR 1.1 (0.9-1.1) 12/30/22 13:00 APTT 49.3 Seconds (21.0-31.0) H* 01/01/23 04:11 PTT Ratio 1.7 01/01/23 04:11 VBG pH 7.37 (7.36-7.41) 12/30/22 22:38 VBG pCO2 44 mmHg (38-50) 12/30/22 13:12 VBG pO2 42 mmHg 12/30/22 13:12 VBG HCO3 17 mmol/L 12/30/22 13:12 VBG O2 Saturation 64.0 % 12/30/22 13:12 VBG Base Excess -10.5 mEq/L 12/30/22 13:12 Sodium 135 mmol/L (136-145) L 01/01/23 07:31 Potassium 3.8 mmol/L (3.5-5.1) 01/01/23 07:31 Chloride 102 mmol/L (98-107) 01/01/23 07:31 Carbon Dioxide 22 mmol/L (21-32) 01/01/23 07:31 Anion Gap 11 (3-11) 01/01/23 07:31 BUN 12 mg/dl (6-23) 01/01/23 07:31 Creatinine 0.75 mg/dl (0.6-1.2) 01/01/23 07:31 Est Cr Clr Drug Dosing 86.6 ml/min 01/01/23 07:31 Est GFR ( Amer) 92.9 ml/min 01/01/23 07:31 Est GFR (Non-Af Amer) 80.2 ml/min 01/01/23 07:31 BUN/Creatinine Ratio 16.0 (10-20) 01/01/23 07:31 Glucose 181 mg/dl (70-99(Fasting)) H 01/01/23 07:31 POC Glucose 224 mg/dl (70-99) H 01/01/23 15:52 Estimat Average Glucose 200 mg/dl 12/31/22 04:05 Hemoglobin A1c 8.6 % (4.5-5.6) H 12/31/22 04:05 Lactate 3.8 mmol/L (0.4-2.0) H* 12/31/22 04:05 Calcium 9.5 mg/dl (8.6-10.3) 01/01/23 07:31 Phosphorus 2.9 mg/dl (2.5-4.9) 01/01/23 07: Magnesium 1.6 mg/dl (1.7-2.4) L 01/01/23 07:31 Total Bilirubin 1.5 mg/dl (0.2-1.0) H 12/31/22 04:05 AST 20 U/L (13-39) 12/31/22 04:05 ALT 22 U/L (7-52) 12/31/22 04:05 Alkaline Phosphatase 72 U/L (34-104) 12/31/22 04:05 Troponin I High Sens 563.2 pg/ml (0-14) H* 12/31/22 04:05 B-Natriuretic Peptide 7 pg/ml (0-100) 12/30/22 13:00 Total Protein 6.7 gm/dl (6.0-8.3) 12/31/22 04:05 Albumin 4.0 gm/dl (3.4-5.0) 12/31/22 04:05 Globulin 2.7 gm/dl (2.5-4.0) 12/31/22 04:05 Albumin/Globulin Ratio 1.5 (0.9-2) 12/31/22 04:05 Urine Color Yellow 12/30/22 19:00 Urine Appearance Clear (Clear) 12/30/22 19:00 Urine pH 5.5 (4.5-7.5) 12/30/22 19:00 Ur Specific Davis > 1.045 (1.000-1.030) H 12/30/22 19:00 Urine Protein 1+ (Negative) H 12/30/22 19:00 Urine Glucose (UA) 1+ (Negative) H 12/30/22 19:00 Urine Ketones Trace (Negative) H 12/30/22 19:00 Urine Blood 1+ (Negative) H 12/30/22 19:00 Urine Nitrite Negative (Negative) 12/30/22 19:00 Urine Bilirubin Negative (Negative) 12/30/22 19:00 Urine Urobilinogen Negative (Negative) 12/30/22 19:00 Ur Leukocyte Esterase Negative (Negative) 12/30/22 19:00 Urine WBC (Auto) 1-5 /hpf (0-5) 12/30/22 19:00 Urine RBC (Auto) 5-10 /hpf (0-4) H 12/30/22 19:00 U Hyaline Cast (Auto) 1-5 /lpf (0-5) 12/30/22 19:00 U Epithel Cells (Auto) >30 /lpf (0-5) H 12/30/22 19:00 Urine Bacteria (Auto) Negative (Negative) 12/30/22 19:00 Nasal Screen MRSA (PCR) Negative (Negative) 12/30/22 18:30 Adenovirus (PCR) Not Detected (NotDetected) 12/30/22 13:40 B. pertussis DNA (PCR) Not Detected (NotDetected) 12/30/22 13:40 B.parapertussis DNA PCR Not Detected (NotDetected) 12/30/22 13:40 C. pneumoniae DNA (PCR) Not Detected (NotDetected) 12/30/22 13:40 Coronavirus OC43 (PCR) Not Detected (NotDetected) 12/30/22 13:40 Coronavirus HKU1 (PCR) Not Detected (NotDetected) 12/30/22 13:40 Coronavirus 229E (PCR) Not Detected (NotDetected) 12/30/22 13:40 SARS-CoV-2 (PCR) Not Detected (NotDetected) 12/30/22 13:40 Coronavirus NL63 (PCR) Not Detected (NotDetected) 12/30/22 13:40 Human Metapneumovir PCR Not Detected (NotDetected) 12/30/22 13:40 Influenza Type A (PCR) Not Detected (NotDetected) 12/30/22 13:40 Influenza Type B (PCR) Not Detected (NotDetected) 12/30/22 13:40 M. pneumoniae (PCR) Not Detected (NotDetected) 12/30/22 13:40 Parainfluenza 1 (PCR) Not Detected (NotDetected) 12/30/22 13:40 Parainfluenza 2 (PCR) Not Detected (NotDetected) 12/30/22 13:40 Parainfluenza 3 (PCR) Not Detected (NotDetected) 12/30/22 13:40 Parainfluenza 4 (PCR) Not Detected (NotDetected) 12/30/22 13:40 RSV (PCR) Not Detected (NotDetected) 12/30/22 13:40 Entero/Rhino (PCR) Not Detected (NotDetected) 12/30/22 13:40 Impressions Chest X-Ray 12/30/22 12:57 XR chest 1V portable CLINICAL HISTORY: Dyspnea. COMPARISON STUDY: Chest radiograph and chest CT October 27, 2019. FINDINGS: Lung volumes are normal. Lungs are clear. There is no pneumothorax or pleural effusion. Cardiac size is normal. Mediastinal contours are normal. There is no evidence for pulmonary edema. IMPRESSION: No acute cardiopulmonary findings. ACT 112: Negative or not required by law. Electronically signed by: Raymond Gonzalez M.D. 12/30/2022 1:21 PM Chest CTA 12/30/22 13:13 CT angio chest PE protocol CLINICAL HISTORY: PE TECHNIQUE: Multidetector row helical CT of the chest was performed with angiographic protocol. Coronal and sagittal reformations were obtained. Coronal and sagittal MIPS were obtained from the axial data set and were submitted for review. Automated dose lowering techniques and/or adjustment according to patient size were utilized for this exam. CT DOSE: 952.66 mGy.cm Comparison: Comparison is made to CT abdomen pelvis 10/27/2019 FINDINGS: Lungs and pleura: Normal. Heart and pericardium: There is enlargement of the right ventricle compatible with right heart strain. Vessels: Saddle emboli are seen with multiple lobar and segmental branches. Mediastinum and bernarda: Unremarkable. Chest wall and lower neck: Unremarkable. Abdomen: Unremarkable. Bones: Unremarkable. IMPRESSION: Extensive pulmonary emboli are seen with evidence of right heart strain. ACT 112: Negative or not required by law. Electronically signed by: Sean Desouza M.D. 12/30/2022 3:32 PM Venous Doppler Study 12/30/22 18:38 Exam(s): US VENOUS BILATERAL LOWER EXTREMITIES EXAM: US Duplex Bilateral Lower Extremities Veins CLINICAL HISTORY: saddle pulmonary embolism ?DVT. TECHNIQUE: Real-time duplex ultrasound scan of the bilateral lower extremity veins integrating B-mode two-dimensional vascular structure, Doppler spectral analysis, color flow Doppler imaging and compression. COMPARISON: No relevant prior studies available. FINDINGS: Right deep veins: Unremarkable. No DVT in the right common femoral, femoral, proximal deep femoral or popliteal veins. The veins demonstrate normal color flow, are normally compressible, with normal phasic flow and/or augmentation response. The interrogated calf veins are patent. Right superficial veins: Unremarkable. No thrombus in the saphenofemoral junction. Left deep veins: There is occlusive thrombus noted in the left popliteal vein with distal extension to the posterior tibial veins. The left common femoral and superficial femoral veins are compressible and demonstrate normal color flow. Left superficial veins: No thrombus in the saphenofemoral junction. Soft tissues: No acute findings. No popliteal cyst. IMPRESSION: 1. There is occlusive thrombus noted in the left popliteal vein with distal extension to the posterior tibial veins. No retrograde/central extension to involve the left superficial femoral or femoral vein is identified. 2. No evidence for deep vein thrombosis involving the right lower extremity. Electronically signed by: Lorenzo Perry MD 12/30/22 21:31 PM Medications Administered Home Medications Medication Instructions Recorded Confirmed Last Taken cholecalciferol (vitamin D3) 25 1,000 unit PO QAM 08/13/18 12/30/22 12/29/22 mcg (1,000 unit) capsule (Vitamin D3) cinnamon bark 500 mg capsule 500 mg PO QAM 08/13/18 12/30/22 12/29/22 (Cinnamon) omega 6-ukr-tpp-fish oil 1,000 mg 1 cap PO QAM 08/13/18 12/30/22 12/29/22 (120 mg-180 mg) capsule (Fish Oil) fexofenadine 60 mg tablet (Hayley 60 mg PO QPM 03/29/19 12/30/22 12/29/22 Allergy) atorvastatin 40 mg tablet 40 mg PO PM #90 tabs 11/25/21 12/30/22 12/29/22 meloxicam 15 mg tablet 15 mg PO QAM #30 tabs 12/16/21 12/30/22 12/29/22 cyclobenzaprine 5 mg tablet 5 mg PO TID PRN sciatica #60 tabs 05/01/22 12/30/22 Unknown magnesium oxide 400 mg PO QAM 05/15/22 12/30/2212/29/23 metoprolol succinate 200 mg 200 mg PO QAM 05/15/22 12/30/22 12/29/22 tablet,extended release 24 hr (Toprol XL) levothyroxine 150 mcg tablet 150 mcg PO QAM #90 tabs 06/02/22 12/30/22 12/30/22 glimepiride 4 mg tablet 4 mg PO QAM #90 tabs 09/23/22 12/30/22 12/29/22 lisinopril 40 mg tablet 40 mg PO QAM #90 tabs 09/23/22 12/30/22 12/29/22 metformin 500 mg tablet,extended 1,000 mg PO BID #360 tabs 09/23/22 12/30/22 12/29/22 release 24 hr dulaglutide 1.5 mg/0.5 mL 1.5 mg (0.5 mL) subcut WK #2 mL 10/20/22 12/30/22 12/22/22 subcutaneous pen injector (Trulicity) acetaminophen 300 mg-codeine 30 mg 1 - 2 tab PO .Q4-6HRS PRN pain 12/30/22 12/30/22 Unknown tablet amoxicillin 500 mg capsule 2,000 mg PO DIRECTED PRN PRIOR 12/30/22 12/30/22 Unknown TO DENTAL WORK. bwshtitf-zgb-pudrgo 5 mg-zeaxanth 1 cap PO DAILY 12/30/22 12/30/22 12/29/22 1 mg-bilberry 7.5 mg-herbal capsule ([employer] [facility] Formula) apixaban 5 mg (74 tabs) tablets in 5 mg PO BID #74 ea 01/01/23 Unknown a dose pack (Eliquis) Active Medications Generic Name Dose Route Start Last Admin Trade Name Freq PRN Reason Stop Dose Admin Acetaminophen 650 mg 12/30/22 23:52 12/31/22 23:33 Acetaminophen 325 Mg Tab PO 01/29/23 23:51 650 mg Q4H PRN Administration Pain Apixaban 10 mg 01/01/23 09:00 01/01/23 08:48 Apixaban 5 Mg Tablet PO 01/07/23 21:01 10 mg BID RUBIO Administration Atorvastatin Calcium 40 mg 12/30/22 21:00 12/31/22 20:37 Atorvastatin 40 Mg Tab PO 01/29/23 20:59 40 mg PM RUBIO Administration Fexofenadine HCl 60 mg 12/30/22 21:00 12/31/22 20:38 Fexofenadine 60 Mg Tab PO 01/29/23 20:59 60 mg QPM RUBIO Administration Insulin Aspart 0 units 12/31/22 16:30 01/01/23 12:00 Insulin Aspart Per Unit Charge SC 01/01/23 23:59 8 units ACHS RUBIO Administration Levothyroxine Sodium 150 mcg 12/31/22 06:30 01/01/23 06:03 Levothyroxine Sodium 150 Mcg Tablet PO 01/30/23 06:29 150 mcg DAILYBB RUBIO Administration Magnesium Oxide 400 mg 12/31/22 09:00 01/01/23 07:53 Magnesium Oxide 400 Mg Tab PO 01/30/23 08:59 400 mg QAM RUBIO Administration Coding Level of Care Code 52537 CRITICAL CARE 1ST 30-74M Diagnoses Saddle pulmonary embolus I26.92 Trigger finger, right ring finger M65.341 Lumbar radiculopathy M54.16 Gilbert's syndrome E80.4 Hypertension I10 Chronic back pain M54.9; G89.29 Degenerative disc disease Sinus tachycardia R00.0 DKA (diabetic ketoacidosis) E11.10
[2023-01-01] MEDS: ATORVASTATIN 40 MG TAB PO SCH (20:35)
[2023-01-01] MEDS: FEXOFENADINE 60 MG TAB PO SCH (20:35)
[2023-01-02] MEDS: LEVOTHYROXINE SODIUM 150 MCG TABLET PO SCH (06:03)
[2023-01-02 06:45] LABS: BUN Creatinine Ratio 21.1 (10-20); Calcium 9.1 mg/dl (8.6-10.3); Creatinine Clr Calc Pharmacy 85.7 ml/min; Est GFR (African American) 91.5 ml/min; Est GFR (Non-African American) 78.9 ml/min; Magnesium 1.5 mg/dl (1.7-2.4); Phosphorus 3.1 mg/dl (2.5-4.9); Potassium 3.6 mmol/L (3.5-5.1)
--- NOTE | 2023-01-02 07:35 | Hospitalist Progress Note ---
Date of Service January 02, 2023 Assessment & Plan (1) Saddle pulmonary embolus: Plan: Saddle PEwith acute cor pulmonale 72-year-old female who presents with large saddle pulmonary emboli with evidence of right heart strain by CAT scan. CAT scan and ECHO showing evidence of right heart strain, positive high- sensitivity serial troponins suggestive of right ventricular strain 52.2, to 37.2, 65.5, 563.2, Heparin gtt to DOAC Eliquis started 01/01 10 mg bid nursing noted that right leg was cold and possible arterial infarction to distal foot, no occlusion warranted on arterial dopplers 01/02/23 to be small vessel disease from diabetes (2) DKA (diabetic ketoacidosis): Plan: High anion gap acidosis Insulin IV drip transition drip to subq long acting. Patient is improving glycemic management transition oral medications HBA1C 9.3 (3) Hypertension: Plan: Chronic and stable restart metoprolol low-dose lisinopril for renal protective effects Likely can restart metoprolol as long as hemodynamically stable (4) Hyperlipidemia: Plan: Continue atorvastatin (5) Hypothyroidism: Plan: TSH 0.963 in September Continue levothyroxine Admission and Anticipated Discharge Date Admission Date: December 30, 2022 Subjective nursing called with complaints of cool extremities right greater than left and a black spot on her right great toe. Arterial Dopplers were ordered without occlusive disease. Patient's bilateral legs are cool with decreased capillary refill with palpable pulses to the dorsalis pedis bilaterally. The black spot on the great toe is traumatic as she does have right foot drop she does not have ischemic changes patient states her legs are always cold and this purple hue to her toes is typical when they are dependent does resolve when she puts her feet up Physical Exam Physical Exam: Awake and alert lungs are clear cardiac is regular, no murmur legs with 1+ edema, delayed capillary refill peripherally pulses are present bilaterally Results & Data Results & Data Vital Signs (Past 12 Hours) Vital Signs Temp Pulse Pulse Resp BP Pulse Ox O2 Del Method 01/02/23 03:35 97.9 F 93 H 19 159/96 H 96 Room Air 01/01/23 23:30 Room Air 01/02/23 01:35 98 H 01/02/23 00:00 117 H 01/01/23 23:26 122 H 155/94 H 01/01/23 22:28 97.7 F 113 H 18 183/108 H 98 Room Air Laboratory Results reviewed chemistry reviewed magnesium PG Care Time/CCT Total # of Minutes Spent Total Time Spent with Patient: Total time spent is greater than 50% in coordination of care (as documented) at patient's floor/unit and/or counseling patient: Coding Level of Care Code 87463 SUB INP/OBS CARE 3/50MIN Diagnoses Saddle pulmonary embolus I26.92 DKA (diabetic ketoacidosis) E11.10 Hypertension I10 Hyperlipidemia E78.5 Hypothyroidism E03.9
[2023-01-02] MEDS: APIXABAN 5 MG TABLET PO SCH ×2 (08:27→20:51)
[2023-01-02] MEDS: GLIMEPIRIDE 2 MG TAB PO SCH (08:27)
[2023-01-02] MEDS: INSULIN ASPART PER UNIT CHARGE SC SCH ×4 (08:28→20:56)
[2023-01-02] MEDS: metFORMIN HCL ER 500 MG TABCR PO SCH ×2 (08:28→17:09)
[2023-01-02] MEDS: MAGNESIUM OXIDE 400 MG TAB PO SCH (08:28)
[2023-01-02] MEDS: MAGNESIUM SULFATE / D5W 1 GM/100 ML BAG IV SCH ×2 (08:33→10:44)
--- NOTE | 2023-01-02 09:57 | Ultrasound Report ---
RIGHT LOWER EXTREMITY ARTERIAL DOPPLER ULTRASOUND CLINICAL HISTORY: Evaluate for arterial occlusion. COMPARISON STUDY: No previous studies for comparison. TECHNIQUE: Sonography of the arterial system of the right lower extremity was performed. FINDINGS: No significant plaque within the right lower extremity was noted. No elevated velocities we re identified to suggest a stenosis. There was triphasic flow within the right common femoral, superf icial femoral and popliteal arteries. There was biphasic flow within the right anterior tibial, poste rior tibial, dorsalis pedis and peroneal arteries. IMPRESSION: Unremarkable right lower extremity arterial Doppler ultrasound. No vessel occlusion. No evidence for a stenosis. ACT 112: Negative or not required by law. Electronically signed by: Raymond Gonzalez M.D. 01/02/2023 9:55 AM
[2023-01-02] MEDS: METOPROLOL TARTRATE 50 MG TAB PO SCH ×2 (20:50→20:58)
[2023-01-02] MEDS: ATORVASTATIN 40 MG TAB PO SCH (20:52)
[2023-01-02] MEDS: FEXOFENADINE 60 MG TAB PO SCH (20:52)
[2023-01-03] MEDS: LEVOTHYROXINE SODIUM 150 MCG TABLET PO SCH (06:21)
--- NOTE | 2023-01-03 07:23 | Electrocardiogram Report ---
Test Reason : Blood Pressure : / mmHG Vent. Rate : 137 BPM Atrial Rate : 137 BPM P-R Int : 132 ms QRS Dur : 122 ms QT Int : 308 ms P-R-T Axes : 048 069 009 degrees QTc Int : 465 ms Probable Sinus tachycardia Non-specific intra-ventricular conduction delay T wave abnormality, consider inferior ischemia Abnormal ECG When compared with ECG of 27-OCT-2019 18:18, QRS duration has increased T wave inversion now evident in Inferior leads Confirmed by Carlos Magana ([id number]) on 01/03/2023 7:22:38 AM Referred By: REFERRED SELF Confirmed By:Carlos Magana
[2023-01-03 08:03] LABS: BUN Creatinine Ratio 25.6 (10-20); Calcium 9.2 mg/dl (8.6-10.3); Creatinine Clr Calc Pharmacy 75.3 ml/min; Est GFR (African American) 78.8 ml/min; Magnesium 1.6 mg/dl (1.7-2.4); Phosphorus 3.1 mg/dl (2.5-4.9); Potassium 3.7 mmol/L (3.5-5.1)
[2023-01-03] MEDS: INSULIN ASPART PER UNIT CHARGE SC SCH ×2 (08:42→12:19)
[2023-01-03] MEDS: APIXABAN 5 MG TABLET PO SCH (08:47)
[2023-01-03] MEDS: MAGNESIUM OXIDE 400 MG TAB PO SCH (08:47)
[2023-01-03] MEDS: GLIMEPIRIDE 2 MG TAB PO SCH (08:47)
[2023-01-03] MEDS: metFORMIN HCL ER 500 MG TABCR PO SCH (08:48)
[2023-01-03] MEDS: METOPROLOL TARTRATE 50 MG TAB PO SCH (08:48)
[2023-01-03] MEDS: MAGNESIUM SULFATE / D5W 1 GM/100 ML BAG IV SCH ×2 (08:49→10:32)
[2023-01-03] MEDS ORDERED: lisinopril 10 MG TAB PO SCH (09:00)
--- NOTE | 2023-01-03 14:59 | Discharge Summary ---
Date of Service January 03, 2023 Admission HPI Per Admitting Provider Zeny Hernández is a 72 year old female who presents to the ER with shortness of breath. 1.5 weeks of shortness of breath on exertion but would recover quickly - she just felt like she was out of shape. This morning sudden onset shortness of breath which she did not recover from around 10am. No chest pain. Called 911 around 11am and was transported to the Emergency Room. No claudication, orthopnea, palpitations, presyncope. No leg/calf pain or swelling. She notes right sided sciatica since May which improved with steroid injection. Left hip pain started in August associated with physical therapy she was having for her right sided sciatica; she notes a total hip arthroplasty performed in 2008. No long haul flights or journeys. No surgeries in the last 6 months. No prior DVT or pulmonary embolism. No hormone replacement therapy. No previous or current cancers known but is not up to date with cancer screenings. Only took thyroid medications this morning. She did not take her usual metoprolol succinate. Principal Diagnosis Saddle PE Discharge Exam Patient is awake and alert he is slightly dyspneic with exertion no focal areas of air loss cardiac exam is regular Resting tachycardia has improved Discharge Data Allergies Allergy/AdvReac Type Severity Reaction Status Date / Time No Known Allergies Allergy Mild 0 Verified 12/30/22 15:46 Consultations 12/30/22 18:38 Consult Strategic Communications Manager Routine Ordered Studies Chest X-Ray 12/30/22 12:57 XR chest 1V portable CLINICAL HISTORY: Dyspnea. COMPARISON STUDY: Chest radiograph and chest CT October 27, 2019. FINDINGS: Lung volumes are normal. Lungs are clear. There is no pneumothorax or pleural effusion. Cardiac size is normal. Mediastinal contours are normal. There is no evidence for pulmonary edema. IMPRESSION: No acute cardiopulmonary findings. ACT 112: Negative or not required by law. Electronically signed by: Raymond Gonzalez M.D. 12/30/2022 1:21 PM Chest CTA 12/30/22 13:13 CT angio chest PE protocol CLINICAL HISTORY: PE TECHNIQUE: Multidetector row helical CT of the chest was performed with angiographic protocol. Coronal and sagittal reformations were obtained. Coronal and sagittal MIPS were obtained from the axial data set and were submitted for review. Automated dose lowering techniques and/or adjustment according to patient size were utilized for this exam. CT DOSE: 952.66 mGy.cm Comparison: Comparison is made to CT abdomen pelvis 10/27/2019 FINDINGS: Lungs and pleura: Normal. Heart and pericardium: There is enlargement of the right ventricle compatible with right heart strain. Vessels: Saddle emboli are seen with multiple lobar and segmental branches. Mediastinum and bernarda: Unremarkable. Chest wall and lower neck: Unremarkable. Abdomen: Unremarkable. Bones: Unremarkable. IMPRESSION: Extensive pulmonary emboli are seen with evidence of right heart strain. ACT 112: Negative or not required by law. Electronically signed by: Sean Desouza M.D. 12/30/2022 3:32 PM Venous Doppler Study 12/30/22 18:38 Exam(s): US VENOUS BILATERAL LOWER EXTREMITIES EXAM: US Duplex Bilateral Lower Extremities Veins CLINICAL HISTORY: saddle pulmonary embolism ?DVT. TECHNIQUE: Real-time duplex ultrasound scan of the bilateral lower extremity veins integrating B-mode two-dimensional vascular structure, Doppler spectral analysis, color flow Doppler imaging and compression. COMPARISON: No relevant prior studies available. FINDINGS: Right deep veins: Unremarkable. No DVT in the right common femoral, femoral, proximal deep femoral or popliteal veins. The veins demonstrate normal color flow, are normally compressible, with normal phasic flow and/or augmentation response. The interrogated calf veins are patent. Right superficial veins: Unremarkable. No thrombus in the saphenofemoral junction. Left deep veins: There is occlusive thrombus noted in the left popliteal vein with distal extension to the posterior tibial veins. The left common femoral and superficial femoral veins are compressible and demonstrate normal color flow. Left superficial veins: No thrombus in the saphenofemoral junction. Soft tissues: No acute findings. No popliteal cyst. IMPRESSION: 1. There is occlusive thrombus noted in the left popliteal vein with distal extension to the posterior tibial veins. No retrograde/central extension to involve the left superficial femoral or femoral vein is identified. 2. No evidence for deep vein thrombosis involving the right lower extremity. Electronically signed by: Lorenzo Perry MD 12/30/22 21:31 PM Duplex Scan Lower Extremity Artery 01/02/23 07:31 RIGHT LOWER EXTREMITY ARTERIAL DOPPLER ULTRASOUND CLINICAL HISTORY: Evaluate for arterial occlusion. COMPARISON STUDY: No previous studies for comparison. TECHNIQUE: Sonography of the arterial system of the right lower extremity was performed. FINDINGS: No significant plaque within the right lower extremity was noted. No elevated velocities were identified to suggest a stenosis. There was triphasic flow within the right common femoral, superficial femoral and popliteal arteries. There was biphasic flow within the right anterior tibial, posterior tibial, dorsalis pedis and peroneal arteries. IMPRESSION: Unremarkable right lower extremity arterial Doppler ultrasound. No vessel occlusion. No evidence for a stenosis. ACT 112: Negative or not required by law. Electronically signed by: Raymond Gonzalez M.D. 01/02/2023 9:55 AM Hospital Course (1) Saddle pulmonary embolus: Saddle PEwith acute cor pulmonale 72-year-old female who presents with large saddle pulmonary emboli with evidence of right heart strain by CAT scan. CAT scan and ECHO showing evidence of right heart strain, positive high- sensitivity serial troponins suggestive of right ventricular strain 52.2, to 37.2, 65.5, 563.2, Heparin gtt to DOAC Eliquis started 01/01 10 mg bid for7 days then 5 mg bid nursing noted that right leg was cold and possible arterial infarction to distal foot, no occlusion warranted on arterial dopplers 01/02/23 to be small vessel disease from diabetes (2) DKA (diabetic ketoacidosis): High anion gap acidosis resolved, return to home meds except trulicity which will be ordered on dc HBA1C 9.3 (3) Hypertension: Chronic and stable restart metoprolol and lisinopril for renal protective effects (4) Hyperlipidemia: Continue atorvastatin (5) Hypothyroidism: TSH 0.963 in May Continue levothyroxine Total Time Total Time Spent Total Time Spent (In Minutes): It required greater than 30 minutes to prepare this patient for discharge Discharge Plan Discharge Items Patient Disposition: Home - Self-Care Reason For Visit: SADDLE PULMONARY EMBOLISM Discharge Diagnosis: pulmonary embolism Activity: Per Instructions section Activity Comment: slowly increase activity Non-emergency contact: Primary Care Provider Call non-emergency contact if: your symptoms worsen Follow-up/Referrals: Gemma Rosenbaum CRNP [Primary Care Provider] - Diet: Carb Consistent or DM2 Addtl Attending Provider Instructions: Medication Instructions: Your condition is typically treated with an anticoagulant. Anticoagulants will thin your blood to help prevent new clots. * You should take her medication exactly as directed. * Never skip a dose. * Never take a double dose. If you miss a dose, take it as soon as you remember. Call your Primary Care doctor if you experience any of the following: * Swelling or Pain in your leg * Sudden, continuous pain deep in a muscle * Pain that worsens when you are active or when you stand still for a long time * Chest Pain * Sudden Shortness of Breath * Rapid or pounding heart beat * Fainting * Dizziness * Cough with blood or bloody sputum * Sweating more than normal * Bruises * Heavy or uncontrolled bleeding * Blood in your urine, stool or vomit * Black or tarry stools Caring for Your Self at Home: * Avoid sitting, standing or lying down for long periods without moving your legs and feet * When traveling by car, stop to get out and move around at least once every 3 hours * On long airplane, train or bus rides, get up and move around when possible * If you can't get up, wiggle your toes and tighten your calves to keep your blood moving Follow Up: It is important for you to keep your follow up appointments with your medical provider. Pending Studies at Discharge: No Stand-Alone Forms: My [facility], Smoking Cessation Medications and DC Order Prescriptions: New Eliquis 5 mg (74 tabs) tablets,dose pack 5 mg PO BID Qty: 74 0RF Rx Instructions: will need 6 months of treatment at a minimnum, Rx for remainder is for 60 pills a month 5 mg bid additional rx will be sent Eliquis 5 mg tablet 5 mg PO BID Qty: 60 4RF Rx Instructions: This is RX to use after initial starter RX is completed Continued atorvastatin 40 mg tablet 40 mg PO PM Qty: 90 3RF cyclobenzaprine 5 mg tablet 5 mg PO TID PRN (Reason: sciatica) Qty: 60 2RF levothyroxine 150 mcg tablet 150 mcg PO QAM Qty: 90 3RF Trulicity 1.5 mg/0.5 mL pen injector 1.5 mg SUBCUT WK Qty: 2 5RF Rx Instructions: MONDAYS lisinopril 40 mg tablet 40 mg PO QAM Qty: 90 3RF metformin 500 mg tablet extended release 24 hr 1,000 mg PO BID Qty: 360 3RF glimepiride 4 mg tablet 4 mg PO QAM Qty: 90 3RF fexofenadine [Hayley Allergy] 60 mg tablet 60 mg PO QPM cholecalciferol (vitamin D3) [Vitamin D3] 1,000 unit Capsule 1,000 unit PO QAM cinnamon bark [Cinnamon] 500 mg Capsule 500 mg PO QAM omega 5-yng-cls-fish oil [Fish Oil] 1,000 mg (120 mg-180 mg) Capsule 1 cap PO QAM metoprolol succinate [Toprol XL] 200 mg tablet extended release 24 hr 200 mg PO QAM magnesium oxide 400 mg magnesium capsule 400 mg PO QAM Macular Health Formula 5-1-7.5 mg Capsule 1 cap PO DAILY amoxicillin 500 mg capsule 2,000 mg PO DIRECTED PRN (Reason: PRIOR TO DENTAL WORK.) Rx Instructions: 30 minutes prior to dental work acetaminophen-codeine 300-30 mg tablet 1 - 2 tab PO .Q4-6HRS PRN (Reason: pain) Rx Instructions: 1 - 2 tabs PO Q4-6 hours PRN; Discontinued meloxicam 15 mg tablet 15 mg PO QAM Qty: 30 5RF Discharge Orders: Discharge Order (Routine); Ordered 01/03/23 Ordered By: Olivier Rodriguez/Other Patient Handouts: Managing Type 2 Diabetes, Diabetes: Meal Planning Admission Data Admit Date/Time: 12/30/22 16:22 Attending Provider: Olivier Burciaga Admit Provider: eKo Marie Primary Care Provider: Gemma Rosenbaum Other Providers: Zafar Duarte Other Interventions: Discharge Summary Assessment (RN) Last Done: 01/03/23 13:41 Coding Level of Care Code 98072 INP/OBS DISCH >30 MIN Diagnoses Saddle pulmonary embolus I26.92 DKA (diabetic ketoacidosis) E11.10 Hypertension I10 Hyperlipidemia E78.5 Hypothyroidism E03.9
== END 2023-01-03 14:42 | disposition home or self-care (01) | DRG 175 ==
LOC: ED 12:47 → 1E 16:22 → SUATTDRO 16:22 → 1E 18:36 → 2S 01-01 22:26